=== PATIENT | male | born 1950 | race Caucasian/White ===

== ENCOUNTER 2017-02-11 03:15 | Outpatient (CLI) | payer OTHER, MEDICARE | END 2017-02-11 03:16 | disposition critical access hospital (66) | LOC: EMS 03:15 | PROVIDERS: ATTEND Surgery | DX: R42 Dizziness and giddiness (principal) | CPT/HCPCS: A0425; A0427 ==

== ENCOUNTER 2017-02-11 03:28 | Inpatient (IN) | payer OTHER, MEDICARE ==
[2017-02-11] MEDS ORDERED: diltiaZEM INJ 5 MG/ML VIAL IVP STA (03:37)
[2017-02-11] MEDS ORDERED: diltiaZEM INJ 5 MG/ML VIAL ONE ×2 (03:45→04:06)
[2017-02-11 03:48] LABS: BASOPHILS # (AUTO) 0.2 10^3/uL (0.0-0.1); BASOPHILS % (AUTO) 1.3 %; EOSINOPHILS # (AUTO) 0.2 10^3/uL (0.0-0.7); EOSINOPHILS % (AUTO) 2.1 %; HCT - HEMATOCRIT 46.4 % (42.0-52.0); HGB - HEMOGLOBIN 15.6 g/dL (14.0-18.0); LYMPHOCYTES # (AUTO) 1.4 10^3/uL (1.5-3.5); LYMPHOCYTES % (AUTO) 12.2 %; MEAN CORPUSCULAR HGB CONC 33.6 g/dL (32.0-36.0); MEAN CORPUSCULAR VOLUME 86.1 fL (80.0-94.0); MONOCYTES # (AUTO) 0.8 10^3/uL (0.0-1.0); MONOCYTES % (AUTO) 6.6 %; NEUTROPHILS # (AUTO) 9.2 10^3/uL (1.5-6.6); NEUTROPHILS % (AUTO) 77.8 %; NUCLEATED RED BLOOD CELLS AUTO 0.2 /100WBC; RED BLOOD COUNT 5.39 10^6/uL (4.70-6.10); RED CELL DISTRIBUTION WIDTH 15.8 % (12.0-15.0); UNCORRECTED WHITE BLOOD COUNT 11.8 x10^3/uL; WHITE BLOOD COUNT 11.8 x10^3/uL (4.8-10.8)
[2017-02-11 03:55] LABS: INR 0.9 (0.8-1.2); PT - PROTHROMBIN TIME 10.6 secs (9.9-12.6)
[2017-02-11 04:03] LABS: ALBUMIN/GLOBULIN RATIO 1.3 (1.0-2.2); BILIRUBIN,TOTAL 0.5 mg/dL (0.2-1.0); CALCIUM 8.8 mg/dL (8.5-10.3); CREATININE 1.1 mg/dL (0.6-1.2); MAGNESIUM 2.2 mg/dL (1.7-2.8); POTASSIUM 3.9 mmol/L (3.5-5.0); TOTAL PROTEIN 6.9 g/dL (6.7-8.2)
[2017-02-11] MEDS ORDERED: diltiaZEM INJ 125 MG in DEXTROSE 5% 100 ML IV STA (04:16)
[2017-02-11] MEDS ORDERED: SODIUM CHLORIDE 0.9% 1,000 ML IV ONE (04:18)
--- NOTE | 2017-02-11 04:38 | XRAY Preliminary Report ---
Exam: XR Chest 1 View IMPRESSION: Stable appearance of the chest without acute cardiopulmonary abnormality. [facility] SITE ID: [id number]
--- NOTE | 2017-02-11 04:41 | ED Physician Documentation ---
PD HPI SYNCOPE - Stated complaint Stated Complaint: DIZZY/SYNCOPE - Chief complaint Chief Complaint: Neuro - History obtained from History obtained from: Patient, Family, EMS - History of Present Illness Witnessed: Unwitnessed Timing - onset: How many hours ago (1) Duration: Seconds Preceding symptoms: Light headed Associated symptoms: No: Seizure, Incontinant of urine, Headache, Vision changes Contributing factors: Just stood up. No: Recent med change, Decreased PO intake , Noxious stimulae Injury occurred: Fell. No: Head injury, Neck injury Similar symptoms before: Has not had sx before Recently seen: Not recently seen - Additional information Additional information: Patient is a 66 year old male who is presenting to the emergency department for syncope. paitent states that he got up to go to the bathroom and when he was walking back to his room he got light headed and passed out. Patient things that it lasted only a few seconds and denies any injury. Patient was able to go back to bed. he laid down and felt ok, but when he sat up in bed he thought he was going to pass out again. Review of Systems Constitutional: denies: Fever, Chills, Myalgias Eyes: denies: Loss of vision, Photophobia Ears: denies: Ear pain, Drainage/discharge Nose: denies: Rhinorrhea / runny nose, Congestion, Epistaxis Throat: denies: Dental pain / toothache, Sore throat Cardiac: denies: Chest pain / pressure, Calf pain GI: denies: Abdominal Pain, Nausea, Vomiting : denies: Dysuria, Frequency Musculoskeletal: denies: Neck pain, Back pain, Extremity pain, Joint pain Neurologic: denies: Generalized weakness, Focal weakness, Numbness Immunocompromised: denies: Immunocompromised PD PAST MEDICAL HISTORY - Past Medical History Cardiovascular: Hypertension, High cholesterol Respiratory: COPD, Other Endocrine/Autoimmune: None GI: Other : None HEENT: None Psych: None Musculoskeletal: Osteoarthritis Derm: None - Past Surgical History Past Surgical History: Yes General: Colonoscopy, EGD, Other Ortho: Arthroscopic surgery HEENT: Tonsil/Adenoidectomy - Present Medications Home Medications: Ambulatory Orders Medication Instructions Recorded Confirmed Felodipine [Plendil] 5 mg PO DAILY 09/08/13 02/11/17 Budesonide/Formoterol Fumarate 2 puffs IH DAILY 10/09/14 02/11/17 [Symbicort 160-4.5 Mcg Inhaler] Losartan [Cozaar] 100 mg PO DAILY 10/09/14 02/11/17 Meloxicam 15 mg PO DAILY 10/09/14 02/11/17 - Allergies Allergies/Adverse Reactions: Allergies Allergy/AdvReac Type Severity Reaction Status Date / Time fortino Allergy Severe Syncope Verified 02/11/17 03:37 - Social History Does the pt smoke?: Yes Smoking Status: Current every day smoker Does the pt drink ETOH?: No Does the pt have substance abuse?: No - Immunizations Immunizations are current?: Yes PD ED PE NORMAL - Vitals Vital signs reviewed: Yes - General General: Alert and oriented X 3, No acute distress - HEENT HEENT: Atraumatic, PERRL, Pharynx benign - Neck Neck: Supple, no meningeal sign, No JVD - Respiratory Respiratory: No respiratory distress, Clear bilaterally - Abdomen Abdomen: Soft, Non tender, Non distended - Derm Derm: Normal color, Warm and dry, No rash - Extremities Extremities: No deformity, No tenderness to palpate, No edema - Neuro Neuro: Alert and oriented X 3, No motor deficit, No sensory deficit, Normal speech - Psych Psych: Normal mood, Normal affect PD ED PE EXPANDED - Cardiac Cardiac: Irregularly irregular, Radial strong equal. No: Chest wall TTP Results - Vitals Vitals: Vital Signs - 24 hr 02/11/17 02/11/17 02/11/17 03:29 03:30 04:16 Temperature 36.2 C L Heart Rate 120 H 132 H 129 H Respiratory 15 11 L 16 Rate Blood Pressure 148/92 H 147/94 H 142/107 H O2 Saturation 96 100 99 02/11/17 02/11/17 04:43 05:00 Temperature Heart Rate 110 H 99 Respiratory 15 16 Rate Blood Pressure 116/79 93/68 O2 Saturation 97 97 Oxygen O2 Source Room air - EKG (time done) 0331 Rate: Rate (enter#) (121) Rhythm: Atrial fibrillation [facility]: Normal Ischemia: Normal ST segments Compare to prior EKG: Changed from prior EKG - Labs Labs: Laboratory Tests 02/11/17 02/11/17 02/11/17 03:40 03:40 03:40 WBC 11.8 H RBC 5.39 Hgb 15.6 Hct 46.4 MCV 86.1 MCH 29.0 MCHC 33.6 RDW 15.8 H Plt Count 237 MPV 7.0 L Neut # 9.2 H Lymph # 1.4 L Coal # 0.8 Eos # 0.2 Baso # 0.2 H Absolute Nucleated RBC 0.03 Nucleated RBCs 0.2 PT 10.6 INR 0.9 APTT 28.0 Sodium 141 Potassium 3.9 Chloride 106 Carbon Dioxide 27 Anion Gap 8.0 BUN 19 Creatinine 1.1 Estimated GFR (MDRD) 67 L Glucose 128 H Calcium 8.8 Phosphorus 3.0 Magnesium 2.2 Total Bilirubin 0.5 AST 17 ALT 19 Alkaline Phosphatase 63 Troponin I B-Natriuretic Peptide Total Protein 6.9 Albumin 3.9 Globulin 3.0 Albumin/Globulin Ratio 1.3 Lipase 29 TSH 02/11/17 02/11/17 02/11/17 03:40 03:40 03:40 WBC RBC Hgb Hct MCV MCH MCHC RDW Plt Count MPV Neut # Lymph # Coal # Eos # Baso # Absolute Nucleated RBC Nucleated RBCs PT INR APTT Sodium Potassium Chloride Carbon Dioxide Anion Gap BUN Creatinine Estimated GFR (MDRD) Glucose Calcium Phosphorus Magnesium Total Bilirubin AST ALT Alkaline Phosphatase Troponin I < 0.04 B-Natriuretic Peptide 47 Total Protein Albumin Globulin Albumin/Globulin Ratio Lipase TSH 1.83 - Rads (name of study) chest x-ray Radiology: Final report received (stable appearance of chest ), EMP read contemporaneously (unchanged from previous) PD MEDICAL DECISION MAKING - ED course Complexity details: reviewed old records, reviewed results, re-evaluated patient , considered differential, d/w patient, d/w netsuite consultant ED course: Patient was seen and examined at bedside. iv access was gained and labs were drawn. ekg was performed and was showing A fib. Patient was treated with cardizem 20mg. labs were within normal limits and patient was placed on a cardizem drip. hospitalist was contacted and the case was discussed with her. patient was admitted for further evaluation and care. Departure - Departure Disposition: ED Place in Observation Clinical Impression: A-fib Condition: Stable
--- NOTE | 2017-02-11 04:41 | XRAY Report ---
EXAM: CHEST RADIOGRAPHY EXAM DATE: 02/11/2017 03:57 AM. CLINICAL HISTORY: Syncope, tachycardia. COMPARISON: 09/28/2013 TECHNIQUE: 1 view. FINDINGS: Lungs/Pleura: No focal opacities evident. No pleural effusion. No pneumothorax. Mediastinum: Suspect small right-sided epicardial fat pad. Cardiac silhouette is within normal limit s when accounting for lung volumes and technique. Other: None. IMPRESSION: Stable appearance of the chest without acute cardiopulmonary abnormality. [facility] Referring Provider Line: [phone] SITE ID: [id number]
[2017-02-11] MEDS ORDERED: HYDROcod/ACETAM 5/325 MG TABLET PO PRN (05:12)
[2017-02-11] MEDS ORDERED: ONDANSETRON 4 MG/2 ML VIAL IVP PRN (05:12)
[2017-02-11] MEDS ORDERED: SODIUM CHLORIDE FLUSH 0.9% 10 ML SYRINGE IVP PRN (05:12)
[2017-02-11] MEDS ORDERED: ONDANSETRON ODT 4 MG TABLET TL PRN (05:12)
[2017-02-11] MEDS ORDERED: ACETAMINOPHEN 325 MG TABLET PO PRN (05:12)
[2017-02-11] MEDS ORDERED: diltiaZEM INJ 125 MG in DEXTROSE 5% 100 ML IV SCH ×2 (05:16→10:00)
[2017-02-11] MEDS ORDERED: RIVAROXABAN 10 MG TABLET PO SCH ×2 (06:00→17:00)
[2017-02-11] MEDS: SODIUM CHLORIDE FLUSH 0.9% 10 ML SYRINGE IVP SCH ×3 (06:31→22:12)
[2017-02-11 07:29] LABS: BILIRUBIN,URINE NEGATIVE (NEGATIVE)
[2017-02-11 07:41] LABS: UR CULTURE IF IND NOT INDICATED; WBC,URINE 0-3 /HPF (0-3)
--- NOTE | 2017-02-11 07:56 | HISTORY & PHYSICAL EXAMINATION ---
DATE OF ADMISSION: 02/11/2017 PRIMARY CARE PROVIDER: Pierre Segura M.D. ADMITTING PROVIDER: Loulou Fajardo MD CHIEF COMPLAINT: Syncope. HISTORY OF PRESENT ILLNESS: He is a 66-year-old man who has passed out several times in his life before. Twenty years ago he passed out in relation to chicken and ross. He did an experiment by himself and realized that every time he ate chicken and ross in combination he would get a little lightheaded, so he stopped doing that. He then passed out in 2013 in association with melanotic stool. He was found to have a Malorie-Mar tear on an EGD. The tear and gastritis at that time was attributed to Advil use for osteoarthritis of the knee. He denies any valvular heart disease. He has never had heart problems before. He did have a right knee replacement surgery in the last month. He last walked a mile and a half on (today is the early childhood coordinator hours of Monday) without any chest pain, shortness of breath, or palpitations. He did not have any thyroid disease. He denies any history of angina, or previous history of palpitations. When I ask him if he feels that he has an irregular heartbeat right now, he says no. This morning he got up to go to the bathroom. He gets up to pee at least twice a night. He passed out after feeling a little lightheaded and going back to bed. He laid in bed for a while. Tested himself by getting up and still felt lightheaded, and that is when they called EMS and brought him to the emergency room. In the emergency room, he has been seen by Dr. Sierra and he is in atrial fibrillation, unknown duration. Possibly new onset, possibly longer. He is completely asymptomatic. He had tachycardia into the 120s, afebrile, normotensive, and oxygenating well, in no acute distress. Dr. Sierra has given him a diltiazem IV push and started him on a diltiazem drip. Rate control is now in the high 90s, low 100s. His initial laboratory studies showed him to have mildly elevated white cell count. Troponin is less than 0.04. TSH is 1.83. Again, he is oxygenating normally on room air. He is now placed in observation for evaluation of this new onset atrial fibrillation, unknown duration. PAST MEDICAL HISTORY 1. Hypertension. 2. Hyperlipidemia. 3. Chronic bronchitis. 4. Osteoarthritis of the knees with a knee replacement in 2012 and then a new knee replacement on the right in the last month. 5. Upper gastrointestinal bleed, requiring blood transfusion, EGD showing Malorie-Mar tear in 2013. Pathology on 09/08/2013 EGD showed no H pylori, no malignancy, no esophageal varices. 6. Right inguinal hernia repair in the remote past. 7. Umbilical hernia currently present, not needing repair. ALLERGIES: ROSS. MEDICATIONS 1. Losartan 100 mg daily. 2. Meloxicam 15 mg daily. 3. Plendil 5 mg daily. 4. Symbicort for his chronic bronchitis 160/4.5 mcg inhaler 2 puffs daily. SOCIAL HISTORY: He started smoking at the age of 11 and smoked for 15 years, and smoked up to 1 pack per day. Stopped smoking cigarettes and chewed tobacco for the next 15 years. Was actually tobacco free for about 3-4 years when a friend came over and offered him a cigar, and he now smokes 3-4 cigars a day. He used to be an alcoholic. Drank a case of beer with a fifth of hard alcohol daily. He stopped drinking when an encounter with his daughter resulted in harsh words on his part. She remonstrated him and he quit drinking that day about 15 years ago. Never had problems with DTs, withdrawal, or cirrhosis as far as he knows. He denies any recreational substance abuse in the form of cannabis, cocaine, heroin, LSD, speed. 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 He is to his second . He is not in contact with any of his children from his first . [place] also seems to intimation that there is a bit of family dysfunction and that some children have been in fpc. With his second of 42 years, they have 3 daughters. 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 FAMILY HISTORY: He is not in contact with his father. The last he heard of him he was in his 50s and healthy, but he has no idea. Mom at age 83 of complications of diabetes, morbid obesity. He had one half brother who of heart disease and he has 2 half sisters that have obesity and diabetes. His 3 daughters are healthy. REVIEW OF SYSTEMS CONSTITUTIONAL: He does not describe any constitutional symptoms of weight loss , fevers, chills, sweats. ENT: Has poor dentition with most of them gone. Has had hearing aids. Denies glaucoma or cataracts. He has no problems with swallowing. He has no history of aphasia. PULMONARY: Chronic bronchitis. Coughs almost every day. That is why he takes the Symbicort. Denies hemoptysis or history of pneumonia. Denies any severe dyspnea on exertion. His exertions are not limited by breathing. CARDIAC: Denies orthopnea, edema, angina, irregular heartbeat, valvular heart disease. GASTROINTESTINAL: Has internal and external hemorrhoids. Occasionally, the external hemorrhoids are quite painful. He also has occasional bright red blood per rectum. Last colonoscopy was 10 years ago and normal. He denies any abdominal pain, change in bowel habits, diarrhea. He has the asymptomatic umbilical hernia. GENITOURINARY: Nocturia is twice with occasional decreased stream, not consistent. He has been taking saw palmetto all of his life. He denies urgency, dysuria, hematuria, flank pain. 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 Knees have been the main problem and he has already had one knee replacement on the left, and now with a right knee replacement. He used to take quite a bit of nonsteroidals, but switched from BARBER-1 drugs to BARBER-2 drugs after the gastrointestinal bleed. SKIN: No new lesions or rashes. PSYCHIATRIC: Denies depression, anxiety. He says that he did try and kill himself when he was 10 years old and his first girlfriend left him. He took a handful of aspirin. He thinks he was about 10. He laughs when he says this. But he usually has no problems with psychiatric disease. DESK ATTENDANT: Syncope 20 years ago, syncope in 2014 with a GI bleed. He otherwise does not have dizziness. Does have tinnitus. No history of stroke or focal deficits. No history of memory loss. No history of seizures. PHYSICAL EXAMINATION GENERAL: On examination, he is seen in the emergency room, vimal #3, and he is alert, oriented, in no acute distress, by himself. has been here all evening and left to go home and get some rest. He is an alert, cooperative gentleman who looks his stated age. He is on a diltiazem drip. VITAL SIGNS: Temperature is 36.2, pulse is now 99, blood pressure which was in the 140s systolic is now 93/68, respirations are 16 and unlabored. He is 97% on room air. HEAD AND NECK: He has very poor dentition. In spite of his complaints of deafness, he is able to hear everything I said without me having to raise my voice. He has a very slight left facial droop, manifested by loss of wrinkles on his left forehead and subtle loss of nasolabial fold on the left. Tongue is also slightly shifted, but he has no fasciculations, speech is normal. Neck is supple, without goiter or bruits. He does have shotty adenopathy. LUNGS: Completely clear to auscultation and percussion. There is no prolonged exhalation in spite of his history of smoking. CHEST: AP diameter is slightly enlarged. CARDIOVASCULAR: PMI is normally placed with an irregular rate and rhythm. In listening for valvular heart disease, no murmurs audible, PMI normally placed. He does not have a right ventricular lift. ABDOMEN: Obese, soft, and only vaguely tender in the right upper quadrant with deep palpation. I do feel the liver edge towards the xiphoid process, but nothing under the rib cage. Spleen is not palpable. He has an easily reducible small umbilical hernia. Normal bowel sounds. No other masses. EXTREMITIES: Show warmth over the knee and warmth over the soft tissue area in the medial calf on the right side. Completely Homans' negative. The calf is soft , nontender. He says that his yusra were ripped when he was doing physical therapy and it opened up the wound. It allowed some dehiscence and he has had secondary intention healing with a thin eschar that is white over the knee incision. The left knee is completely unremarkable other than the scar. He has no clubbing, cyanosis, or edema. NEUROLOGICAL: He is alert and oriented to person, place, and time. Deafness is not apparent to me as he speaks to me normally and he can hear me. Again, the slight left facial droop on exam, but no concurrent left body findings. He has no pronator drift. Hand grasp strength is equal and symmetrical. He is able to lift both legs off the bed. Plantar dorsiflexion strength testing is normal. LABORATORIES: On CMP, normal sodium, potassium, BUN, creatinine, with a GFR of 67. Random glucose is 128. Troponin less than 0.04. BNP is 47. TSH is 1.83. Lipase is 29. CBC shows a mild elevation of white cell count at 11.8 thousand. His last CBCs in the EMR from 2013 to 2014 were all 6.9 to 7.1. Hemoglobin is normal at 15.6. MCV is normal. Platelets 237. INR is 0.9. IMAGING: Chest x-ray shows no infiltrates, and there is no report of emphysema changes. It is a stable chest appearance. He has a suspected right-sided epicardial fat pad. EKG has atrial fibrillation with a rate of 121. Upright access that is normal. No deviation. Nonspecific ST changes in the lateral leads at V5, V6. Normal R- wave progression, and other than the atrial fibrillation is not really an acute change EKG, with no previous EKG for comparison. ASSESSMENT/PLAN 1. New onset atrial fibrillation, unknown duration. Patient is completely asymptomatic at this time other than the lightheadedness and syncope he manifested at home. Even right here in the emergency room, he is unaware he is in atrial fibrillation, with a rate that sometimes goes up to 130. So it is difficult to say when this onset would have been for this patient. CHADS score is 2, which shows a moderate risk. As such, he will be anticoagulated with Xarelto. For the further workup of the cause of the atrial fibrillation, his initial set of troponins are negative, will do another set in 6 hours. Will check echocardiogram for valvular heart disease, but I am not hearing anything on exam, and the other differential to consider is pulmonary embolus. The patient has just had a knee replacement. So he will get an echocardiogram and a CT pulmonary angiogram. Placed in observation. Anticipate discharge at less than 1 midnight. TSH is normal. I do not suspect alcohol abuse in that he has not had a drink quite some time, and chest x-ray is normal for any infiltrative process that would irritate the cardium to cause atrial fibrillation. 2. Elevated white cell count in a patient who has had a knee replacement. The knee is warm. Slight effusions seen on exam. Flexion is impaired, but all of this is normal postoperative findings. Patient does not have a fever. He is successfully undergoing PT. Walked a mile and a half 2 days ago. Will just follow up with his orthopedic surgeon, who is Dr. Vigil at [facility]. At this time, I do not suspect infection and will just closely follow. 3. History of hypertension. With a diltiazem drip he is mildly hypotensive. Will adjust medications as necessary. 4. Hyperlipidemia history. He stopped taking his statin about 3-4 years ago. No reason, he just "stopped doing it." Would recommend that he get his lipid panel checked again in the outpatient setting and decide if his cardiac risk factors are high enough for him to resume statins. 5. Randomized elevated glucose in a patient does not have a history of diabetes. Check A1c. 6. Umbilical hernia, easily reducible. Not symptomatic. No further evaluation needed at this time unless it becomes symptomatic. 7. Left facial droop. He does not have a history of Mercado's palsy or any neurological event. At this time, no further workup and just noted. I am hoping that Dr. Segura will read this History and Physical. As the patient's left-sided facial droop worsens, he may need imaging in the outpatient arena, but at this time observation only. 8. Poor dentition. Strongly recommend dental followup in the outpatient setting. 9. Tobacco abuse. Strongly counseled to stop smoking cigars. He is already at increased risk head and neck cancer, much less lung cancer, and as he gets older he has already increased his risk for arteriosclerotic disease. No nicotine patch needed at this time. 10. Osteoarthritis, with recent knee replacement. Pain and stiffness as expected. Unfortunately, he is going to have to go off meloxicam or any nonsteroidal therapy and will need to be switched to Tylenol or very low dose opioid. 11. DO NOT RESUSCITATE, DO NOT INTUBATE status. He says that he is several friends and acquaintances be on life support, receive treatment beyond when they should have. He has not shared his philosophy yet with his and I strongly encouraged him to do so because it would be a severe shock for her to come in in emergency find her unresuscitated per his wishes, but she did not know. 12. Deep venous thrombosis prophylaxis is moot, in that the patient will be on Xarelto for his new onset atrial fibrillation. JOB #: [id number] EXT JOB #:[id number] MTDD
[2017-02-11] MEDS: diltiaZEM 30 MG TABLET PO SCH ×3 (08:08→19:06)
[2017-02-11] MEDS: FELODIPINE ER 2.5 MG TABLET PO SCH (08:42)
[2017-02-11] MEDS: POLYETHYLENE GLYCOL 3350 17 GM PACKET PO SCH (08:43)
[2017-02-11] MEDS: LOSARTAN 50 MG TABLET PO SCH (08:43)
[2017-02-11] MEDS ORDERED: IOPAMIDOL-300 100 ML VIAL IVP ONE (08:59)
[2017-02-11] MEDS ORDERED: LOSARTAN 50 MG TABLET PO SCH (09:00)
[2017-02-11] MEDS ORDERED: FORMOTEROL FUMARATE IH SCH (09:00)
[2017-02-11] MEDS ORDERED: MELOXICAM 15 MG PO SCH (09:00)
[2017-02-11] MEDS ORDERED: [UNRECOGNIZED DRUG - OTHER] IH SCH (09:00)
[2017-02-11] MEDS ORDERED: BUDESONIDE IH SCH (09:00)
[2017-02-11 09:27] LABS: BASOPHILS # (AUTO) 0.1 10^3/uL (0.0-0.1); BASOPHILS % (AUTO) 0.5 %; EOSINOPHILS # (AUTO) 0.1 10^3/uL (0.0-0.7); EOSINOPHILS % (AUTO) 1.1 %; HCT - HEMATOCRIT 43.9 % (42.0-52.0); HGB - HEMOGLOBIN 14.6 g/dL (14.0-18.0); LYMPHOCYTES # (AUTO) 1.5 10^3/uL (1.5-3.5); LYMPHOCYTES % (AUTO) 13.2 %; MEAN CORPUSCULAR HEMOGLOBIN 28.5 pg (27.0-31.0); MEAN CORPUSCULAR HGB CONC 33.4 g/dL (32.0-36.0); MEAN CORPUSCULAR VOLUME 85.5 fL (80.0-94.0); MEAN PLATELET VOLUME 7.4 fL (7.4-11.4); MONOCYTES # (AUTO) 0.7 10^3/uL (0.0-1.0); MONOCYTES % (AUTO) 5.8 %; NEUTROPHILS # (AUTO) 9.3 10^3/uL (1.5-6.6); NEUTROPHILS % (AUTO) 79.4 %; RED BLOOD COUNT 5.13 10^6/uL (4.70-6.10); RED CELL DISTRIBUTION WIDTH 15.7 % (12.0-15.0); UNCORRECTED WHITE BLOOD COUNT 11.7 x10^3/uL; WHITE BLOOD COUNT 11.7 x10^3/uL (4.8-10.8)
--- NOTE | 2017-02-11 09:38 | CT Preliminary Report ---
Exam: CT Chest Angio (PE) IMPRESSION: 1. No evidence of acute PE. Minimal ascending aortic prominence measuring up to 4.3 cm. 2. Mild atelectatic changes at the lung bases and the lingula without gross consolidation. 3. Otherwise, unremarkable exam. [facility] SITE ID: [id number]
--- NOTE | 2017-02-11 09:41 | CT Report ---
EXAM: CT ANGIOGRAM CHEST EXAM DATE: 02/11/2017 08:48 AM. CLINICAL HISTORY: New afib with hx of knee replacement. COMPARISON: None. TECHNIQUE: Routine helical imaging was performed through the chest in the pulmonary arterial phase. I V Contrast: 80 cc of Isovue 300. Reconstructions: Coronal 3-D MIP reconstructions.Sagittal and baez l. In accordance with CT protocol optimization, one or more of the following dose reduction techniques w ere utilized for this exam: automated exposure control, adjustment of mA and/or KV based on patient s ize, or use of iterative reconstructive technique. FINDINGS: Pulmonary Arteries: Diagnostic quality: Adequate through the segmental arteries. No evidence for acute or chronic pulmona ry emboli. RV/LV is within normal limits. There is no interventricular septal bowing. There is no reflux of cont rast material in the IVC. Lungs/Pleura: Mild atelectatic changes seen at the lung bases in addition to the lingula. No gross co nsolidation seen. Mediastinum: Mildly prominent lymph nodes seen about the precarinal region measuring up to 1.4 cm. Ad ditional subcentimeter lymph nodes seen in mediastinum otherwise. No evidence of hilar adenopathy see n. Thoracic Aorta: Minimal ascending aortic prominence measuring up to 4.3 cm. Upper Abdomen: Unremarkable. Other: None. IMPRESSION: 1. No evidence of acute PE. Minimal ascending aortic prominence measuring up to 4.3 cm. 2. Mild atelectatic changes at the lung bases and the lingula without gross consolidation. 3. Otherwise, unremarkable exam. [facility] Referring Provider Line: [phone] SITE ID: [id number]
[2017-02-11] MEDS ORDERED: DEXTROSE 5% 100 ML IV ONE (09:55)
[2017-02-11 11:20] LABS: HEMOGLOBIN A1C 0.66 g/dL
--- NOTE | 2017-02-11 17:10 | PROVIDER PROGRESS NOTE ---
Lathe Spotter Note - Lathe Spotter Note Lathe Spotter Note: Patient seen and examined. Went for CTA of the lungs this morning which was negative for pulmonary embolism. The patient is resting comfortably and asymptomatic. He is off of the diltiazem drip this afternoon. His heart rate continues to jump up into the low 100s. He is on PO dilt still in A fib we will start him on metoprolol tonight and see if he converts back to sinus rhythm. Patients echo looked very normal. The patient was started on xarelto today.
[2017-02-11] MEDS ORDERED: METOPROLOL TARTRATE 25 MG TABLET PO SCH (21:00)
[2017-02-12] MEDS: diltiaZEM 30 MG TABLET PO SCH (01:03)
[2017-02-12] MEDS ORDERED: METOPROLOL 5 MG/5 ML VIAL IVP ONE (04:15)
[2017-02-12] MEDS ORDERED: METOPROLOL 5 MG/5 ML VIAL IVP SCH (04:15)
[2017-02-12] MEDS ORDERED: METOPROLOL TARTRATE 25 MG TABLET PO SCH (06:38)
[2017-02-12] MEDS ORDERED: RIVAROXABAN 10 MG TABLET PO SCH (08:00)
[2017-02-12] MEDS: SODIUM CHLORIDE FLUSH 0.9% 10 ML SYRINGE IVP SCH (08:41)
[2017-02-12] MEDS ORDERED: diltiaZEM CD 180 MG CAPSULE PO SCH (09:00)
[2017-02-12] MEDS: POLYETHYLENE GLYCOL 3350 17 GM PACKET PO SCH (09:03)
[2017-02-12] MEDS: FELODIPINE ER 2.5 MG TABLET PO SCH (09:57)
[2017-02-12] MEDS: LOSARTAN 50 MG TABLET PO SCH (09:57)
[2017-02-12 12:56] VITALS: BP 102/67
--- NOTE | 2017-02-12 13:56 | Discharge Plan ---
Discharge Plan Disposition: Home, Self Care Condition: Fair Prescriptions: diltiaZEM CD [Cardizem Cd] 180 mg PO DAILY #30 capsule Metoprolol Tartrate [Lopressor] 50 mg PO BID #60 tablet Rivaroxaban [Xarelto] 20 mg PO QDBREAKFAST #30 tablet Diet: Low Sodium Activity Restrictions: Activity as Tolerated Shower Restrictions: No Driving Restrictions: No Weight Bearing: Full Weight Instruction Topics: AFL/Afib, Stroke Prevent Live W Atrial Fib, Atrial Fibrillation Additional Instructions or Follow Up instructions: You presented in atrial fibrillation with a rapid ventricular rate. You were started on medications to help slow rate and at discharge her rate was between 80 and 100 which is adequate. I have given you a prescription for diltiazem and metoprolol that he will take daily. You've also been given a prescription for Xarelto which is a blood thinner and will reduce your risk of stroke given that you do have atrial fibrillation. Your echocardiogram showed that your heart is in good shape. Please followup with your primary care physician as soon as possible. You may need further adjustments on your weight controlling medications. No Smoking: If you smoke, Please STOP! Call for help. Follow-up with: Roni Segura MD [Provider Admit Priv/Credential] -
--- NOTE | 2017-02-12 14:10 | DISCHARGE SUMMARY ---
Discharge Summary Admit Date: 02/12/17 Discharge Date: 02/12/17 Discharging Provider: Hector Zhu MD Primary Care Provider: Pierre Segura MD Code Status: Do Not Attempt Resuscitation Condition at Discharge: Fair Discharge Disposition: 01 Home, Self Care - DIAGNOSES Admission Diagnoses: 1. New onset atrial fibrillation 2. Elevated white blood cell count 3. History of hypertension 4. Hyperlipidemia 5. Elevated glucose 6. Umbilical hernia 7. Left facial droop 8. Nam patient 9. Tobacco abuse 10. Osteoarthritis 11. DVT prophylaxis - HPI History of Present Illness: Patient is a 66-year-old gentleman who has passed out several times in his life before. 20 years ago he passed out in relation to chicken and Constanza. He did an experiment by himself and relies that every time he ate chicken constanza a combination he would get a little lightheaded, so he stopped doing that. He then passed out and 2014 in association with melanotic stool. He was found to have Malorie-Mar tear on an EGD. The tear and gastritis at that time was attributed to have bilious for osteoarthritis of the knee. He denies any valvular heart disease. He is never had heart problems. He did have a right knee replacement surgery in the last month. He last walked a mile and a half on without any chest pain, shortness of breath, or palpitations. He did not have any thyroid disease. He denies any history of angina, or previous history of palpitations. On the morning of presentation the patient got up to go to the bathroom he gets up to P. at least twice a night. He states he passed out after feeling lightheaded and then went back to bed. He laid in the bed for a while. Tested himself by getting up and still felt lightheaded and therefore he called EMS and was brought into the emergency department. On presentation to emergency department the patient was found to be in atrial fibrillation for an unknown duration. This is possibly new onset but could have been longer. He was completely asymptomatic. He had heart rate in the 120s, was afebrile and normotensive with good oxygenation and not in any acute distress. The patient was given IV push of diltiazem and then started on a diltiazem drip. Patient continued to have rate in the 100s to 120s. He underwent lab work which revealed a normal TSH normal troponin and his EKG showed that he was in atrial fibrillation. - HOSPITAL COURSE Hospital Course: The patient is a 66-year-old gentleman with a past medical history of hypertension, hyperlipidemia, chronic bronchitis, Osteoarthritis status post knee replacement x2, history of GI bleed requiring transfusion and right inguinal hernia repair who presents to the emergency department with a syncopal episode and lightheadedness. The patient was found to be in atrial fibrillation with rapid ventricular rate in the 120s he was given IV diltiazem and placed on a diltiazem drip. The patient was admitted to the ICU on a diltiazem drip. Patient's workup including TSH, troponin, EKG, chest x-ray, CT angiogram of the lungs and echocardiogram were all unremarkable. The patient remained in atrial fibrillation throughout the hospitalization however he was titrated off of the diltiazem drip. He was placed on oral metoprolol which was titrated up to 50 mg twice a day and on diltiazem 180 mg daily. We stopped his home blood pressure medication including felodipine Cozaar and hydrochlorothiazide as we did not want him to become hypotensive. The patient was monitored on telemetry and heart rate remained between 80 and 100 on the above medications. The patient was started on Xarelto for anticoagulation for his atrial fibrillation. His chadsvasc score was 3. The patient was given prescriptions for the above medications and was told to followup with his PCP. The patient may need further adjustment of his rate control agents. The patient remained in atrial fibrillation at the time of discharge. Patient's blood pressure was well- controlled. The patient may need referral for cardiology. Patient was in stable condition at the time of discharge. - ALLERGIES Allergies/Adverse Reactions: Allergies Allergy/AdvReac Type Severity Reaction Status Date / Time constanza Allergy Severe Syncope Verified 02/11/17 03:37 - MEDICATIONS Home Medications: Ambulatory Orders Medication Instructions Recorded Confirmed Meloxicam 15 mg PO DAILY 10/09/14 02/11/17 Albuterol Sulf [Ventolin Hfa 2 puffs INH Q4H PRN 02/11/17 02/11/17 Inhaler] Metoprolol Tartrate [Lopressor] 50 mg PO BID #60 tablet 02/12/17 Rivaroxaban [Xarelto] 20 mg PO QDBREAKFAST #30 tablet 02/12/17 diltiaZEM CD [Cardizem Cd] 180 mg PO DAILY #30 capsule 02/12/17 - PHYSICAL EXAM AT DISCHARGE General Appearance: positive: No acute distress, Alert Eyes Bilateral: positive: Normal inspection, PERRL, EOMI, No lid inflammation, Conjunctivae nml, No scleral icterus ENT: positive: ENT inspection nml, Pharynx nml, No signs of dehydration. negative: Purulent nasal drainage, Pharyngeal erythema, Oral lesions Neck: positive: Nml inspection, Thyroid nml, No JVD, Trachea midline. negative : Thyromegaly, Lymphadenopathy (R), Lymphadenopathy (L), Carotid bruit, Tracheal deviation Respiratory: positive: Chest non-tender, No respiratory distress, Breath sounds nml. negative: Wheezes, Rales, Rhonchi Cardiovascular: positive: No murmur, No gallop, Irregularly irregular Peripheral Pulses: positive: 2+ Abdomen: positive: Non-tender, No organomegaly, Nml bowel sounds, No distention. negative: Guarding, Rebound Back: positive: Nml inspection. negative: CVA tenderness (R), CVA tenderness (L ) Skin: positive: Color nml, No rash, Warm Extremities: positive: Non-tender, Full ROM, Nml appearance, No pedal edema Neurologic/Psychiatric: positive: Oriented x3, CN's nml (2-12), Motor nml, Sensation nml, Mood/affect nml - LABS Result Diagrams: 02/11/17 08:57 02/11/17 03:40 Other Lab Results: Laboratory Results WBC 11.7 x10^3/uL (4.8-10.8) H 02/11/17 08:57 RBC 5.13 10^6/uL (4.70-6.10) 02/11/17 08:57 Hgb 14.6 g/dL (14.0-18.0) 02/11/17 08:57 Hct 43.9 % (42.0-52.0) 02/11/17 08:57 MCV 85.5 fL (80.0-94.0) 02/11/17 08:57 MCH 28.5 pg (27.0-31.0) 02/11/17 08:57 MCHC 33.4 g/dL (32.0-36.0) 02/11/17 08:57 RDW 15.7 % (12.0-15.0) H 02/11/17 08:57 Plt Count 228 10^3/uL (130-450) 02/11/17 08:57 MPV 7.4 fL (7.4-11.4) 02/11/17 08:57 Neut # 9.3 10^3/uL (1.5-6.6) H 02/11/17 08:57 Lymph # 1.5 10^3/uL (1.5-3.5) 02/11/17 08:57 [place] # 0.7 10^3/uL (0.0-1.0) 02/11/17 08:57 Eos # 0.1 10^3/uL (0.0-0.7) 02/11/17 08:57 Baso # 0.1 10^3/uL (0.0-0.1) 02/11/17 08:57 Absolute Nucleated RBC 0.00 x10^3/uL 02/11/17 08:57 Nucleated RBCs 0.0 /100WBC 02/11/17 08:57 PT 10.6 secs (9.9-12.6) 02/11/17 03:40 INR 0.9 (0.8-1.2) 02/11/17 03:40 APTT 28.0 secs (24.9-33.3) 02/11/17 03:40 Sodium 141 mmol/L (135-145) 02/11/17 03:40 Potassium 3.9 mmol/L (3.5-5.0) 02/11/17 03:40 Chloride 106 mmol/L (101-111) 02/11/17 03:40 Carbon Dioxide 27 mmol/L (21-32) 02/11/17 03:40 Anion Gap 8.0 (6-13) 02/11/17 03:40 BUN 19 mg/dL (6-20) 02/11/17 03:40 Creatinine 1.1 mg/dL (0.6-1.2) 02/11/17 03:40 Estimated GFR (MDRD) 67 (>89) L 02/11/17 03:40 Glucose 128 mg/dL (70-100) H 02/11/17 03:40 Glycated Hemoglobin 5.8 % (4.6-6.2) 02/11/17 08:57 Estim Average Glucose 120 (70-100) H 02/11/17 08:57 Calcium 8.8 mg/dL (8.5-10.3) 02/11/17 03:40 Phosphorus 3.0 mg/dL (2.5-4.6) 02/11/17 03:40 Magnesium 2.2 mg/dL (1.7-2.8) 02/11/17 03:40 Total Bilirubin 0.5 mg/dL (0.2-1.0) 02/11/17 03:40 AST 17 IU/L (10-42) 02/11/17 03:40 ALT 19 IU/L (10-60) 02/11/17 03:40 Alkaline Phosphatase 63 IU/L (42-121) 02/11/17 03:40 Troponin I < 0.04 ng/mL (<0.49) 02/11/17 08:57 B-Natriuretic Peptide 47 pg/mL (5-100) 02/11/17 03:40 Total Protein 6.9 g/dL (6.7-8.2) 02/11/17 03:40 Albumin 3.9 g/dL (3.2-5.5) 02/11/17 03:40 Globulin 3.0 g/dL (2.1-4.2) 02/11/17 03:40 Albumin/Globulin Ratio 1.3 (1.0-2.2) 02/11/17 03:40 Lipase 29 U/L (22-51) 02/11/17 03:40 TSH 1.83 uIU/mL (0.34-5.60) 02/11/17 03:40 Urine Color YELLOW 02/11/17 07:05 Urine Clarity CLEAR (CLEAR) 02/11/17 07:05 Urine pH 7.0 PH (5.0-7.5) 02/11/17 07:05 Ur Specific [place] 1.010 (1.002-1.030) 02/11/17 07:05 Urine Protein NEGATIVE mg/dL (NEGATIVE) 02/11/17 07:05 Urine Glucose (UA) NEGATIVE mg/dL (NEGATIVE) 02/11/17 07:05 Urine Ketones NEGATIVE mg/dL (NEGATIVE) 02/11/17 07:05 Urine Occult Blood NEGATIVE (NEGATIVE) 02/11/17 07:05 Urine Nitrite NEGATIVE (NEGATIVE) 02/11/17 07:05 Urine Bilirubin NEGATIVE (NEGATIVE) 02/11/17 07:05 Urine Urobilinogen 0.2 (NORMAL) E.U./dL (NORMAL) 02/11/17 07:05 Ur Leukocyte Esterase NEGATIVE (NEGATIVE) 02/11/17 07:05 Urine RBC None Seen /HPF (0-5) 02/11/17 07:05 Urine WBC 0-3 /HPF (0-3) 02/11/17 07:05 Ur Squamous Epith Cells NONE SEEN (<= Few) 02/11/17 07:05 Urine Bacteria None Seen /HPF (None Seen) 02/11/17 07:05 Urine Culture Comments NOT INDICATED 02/11/17 07:05 - DIAGNOSTIC IMAGING Diagnostic Imaging Results: Final report reviewed Diagnostic Imaging Results Comments: Chest x-ray Impression: Stable appearance of the chest without acute cardiopulmonary abnormality CT angiogram chest Impression: 1 no evidence of acute PE. Minimal ascending aortic prominence measuring up to 4.3 cm. 2. Mild atelectatic changes at the lung bases and the lingula without gross consolidation. 3. Otherwise, unremarkable exam. Echocardiogram: Left ventricle size is normal. Mild concentric left ventricular hypertrophy. Left ventricular systolic function is hyperdynamic with ejection fraction of greater than 75%. Indeterminate left ventricular filling pattern do to atrial fibrillation. The right ventricle is normal in size and function. The left atrial volume index is normal. Mild right atrial enlargement. The aortic valve is trileaflet. There is mild aortic valve sclerosis. There is no evidence of aortic stenosis. There is no evidence of aortic regurgitation. The mitral valve is normal no mitral stenosis noted. There is trace mitral regurgitation. The tricuspid valve appears structurally normal. No tricuspid stenosis noted. Trace tricuspid regurgitation present. Normal right ventricular pressure less than 35 mm mercury. The right ventricular systolic pressure at rest is 30 mm mercury. The pulmonic Doppler is normal. No significant pulmonic regurgitation noted. There is no pulmonic stenosis noted. There is no pericardial effusion noted. There is an adipose layer noted in the pericardium. The inter atrial septum appears normal. The interatrial septum is intact on color flow imaging. Aortic root size appears normal. The ascending aorta is dilated measuring up to 3.5 cm. The pulmonary artery is normal. Inferior vena cava is normal with greater than 50% inspiratory collapse which is suggestive of a right atrial pressure of 3 mm mercury. No thrombus or mass identified. There is no pleural effusion noted. - FOLLOW UP Follow Up: Patient presented with new-onset atrial fibrillation after having syncopal episode at home. Patient was placed on diltiazem drip weaned off and placed on oral metoprolol and diltiazem. With which the patient's heart rate was controlled. Patient was also prescribed Xarelto. Patient remained in atrial fib and will followup with his primary care physician within the next week. Patients Echo and CT angio of the lungs were normal. - TIME SPENT Time Spent in Discharge (Minutes): 45
[2017-03-03] MEDS ORDERED: ONDANSETRON 4 MG/2 ML VIAL ONE (16:11)
[2017-03-03] MEDS ORDERED: HYDROmorphone 1 MG/ML CARPUJECT ONE (16:11)
== END 2017-02-12 14:30 | disposition home or self-care (01) | DRG 310 ==
LOC: EDUNIT# → ED 03:28 → ICU 05:12 → OBSVTOIN 02-12 09:27 → MS3 02-12 11:12
PROVIDERS: ADMIT Specialist; ATTEND Internal Medicine
DX: I48.91 Unspecified atrial fibrillation (principal); D72.829 Elevated white blood cell count, unspecified; I10 Essential (primary) hypertension; I11.9 Hypertensive heart disease without heart failure; E78.5 Hyperlipidemia, unspecified; F17.290 Nicotine dependence, other tobacco product, uncomplicated; Z87.898 Personal history of other specified conditions; Z79.1 Long term (current) use of non-steroidal anti-inflammatories (NSAID); Z91.5 Personal history of self-harm; H93.19 Tinnitus, unspecified ear; Z91.81 History of falling; E66.9 Obesity, unspecified; Z68.32 Body mass index [BMI] 32.0-32.9, adult; I95.2 Hypotension due to drugs; T46.1X5A Adverse effect of calcium-channel blockers, initial encounter; Y92.239 Unspecified place in hospital as the place of occurrence of the external cause; R73.9 Hyperglycemia, unspecified; K42.9 Umbilical hernia without obstruction or gangrene; R29.810 Facial weakness; J42 Unspecified chronic bronchitis; Z66 Do not resuscitate; Z96.653 Presence of artificial knee joint, bilateral; Z87.19 Personal history of other diseases of the digestive system; Z72.0 Tobacco use
CPT/HCPCS: 36415; 71010; 71275; 80053; 81001; 83036; 83690; 83735; 83880; 84100; 84443; 84484; 85025; 85379; 85610; 85730; 87086; 87150; 93005; 93306; 96361; 96365; 96366; 96374; 96375; 96376; 99284

== ENCOUNTER 2017-06-02 15:33 | Outpatient (CLI) | payer OTHER, MEDICARE ==
--- NOTE | 2017-06-02 18:17 | Ultrasound Report ---
EXAM: Bilateral Lower Extremity Arterial Doppler Ultrasound EXAM DATE: 06/02/2017 03:54 PM. CLINICAL HISTORY: PVD WITH CLAUDICATION. COMPARISON: None. TECHNIQUE: Real-time sonographic vascular imaging was performed by the textile designer, utilizing color-f low, Doppler flow, and spectral analysis. Multiple escrow representative static images were saved for review . FINDINGS: The patient presented ambulatory without dusky extremities. Velocities are in centimeters per second Right side The common femoral artery appears patent with PSV 129 Profundus femoral artery PSV measures up to 243 Superficial femoral artery has a high-grade stenosis. 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 [facility] Referring Provider Line: [phone] SITE ID: [id number]
== END 2017-06-02 15:34 | disposition home or self-care (01) ==
LOC: DI 15:33
PROVIDERS: ATTEND Family Medicine
DX: I70.201 Unspecified atherosclerosis of native arteries of extremities, right leg (principal)
CPT/HCPCS: 93925

== ENCOUNTER 2018-01-01 13:03 | Emergency (ER) | payer OTHER, MEDICARE ==
--- NOTE | 2018-01-01 13:52 | ED Physician Documentation ---
History of Present Illness - Stated complaint Stated Complaint: RAPID HR/BP CONCERN - Chief complaint Chief Complaint: Cardiac - History obtained from History obtained from: Patient - History of Present Illness Timing: Today Pain level max: 0 Pain level now: 0 Improved by: rest Worsened by: nothing - Additonal information Additional information: Patient is a 67-year-old male who presents to the emergency department with complaints of near syncope 4 today. He states these episodes last for a few seconds at a time. He states during these episodes that he checks his pulse and it is irregular like prior episodes of atrial fibrillation. Has not changed his medications recently. Currently is asymptomatic. No chest pain, noted dyspnea, no vomiting. No abdominal pain. No headache. Patient states that his maximum heart rate during these episodes is approximately 112, his blood pressure was around 140 systolic. Review of Systems Ten Systems: 10 systems reviewed and negative Constitutional: denies: Fever, Chills Ears: denies: Ear pain Nose: denies: Rhinorrhea / runny nose, Congestion Throat: denies: Sore throat Cardiac: reports: Palpitations. denies: Chest pain / pressure Respiratory: denies: Cough GI: denies: Abdominal Pain, Nausea, Vomiting, Diarrhea : denies: Dysuria Skin: denies: Rash Musculoskeletal: denies: Neck pain, Back pain Neurologic: denies: Headache PD PAST MEDICAL HISTORY - Past Medical History Cardiovascular: Hypertension, High cholesterol Respiratory: COPD, Other Endocrine/Autoimmune: None GI: GI bleed : None HEENT: None Psych: None Musculoskeletal: Osteoarthritis Derm: None - Past Surgical History Past Surgical History: Yes General: Colonoscopy, EGD, Other Ortho: Arthroscopic surgery HEENT: Tonsil/Adenoidectomy - Present Medications Home Medications: Ambulatory Orders Medication Instructions Recorded Confirmed Meloxicam 15 mg PO DAILY 10/09/14 02/11/17 Albuterol Sulf [Ventolin Hfa 2 puffs INH Q4H PRN 02/11/17 02/11/17 Inhaler] Metoprolol Tartrate [Lopressor] 50 mg PO BID #60 tablet 02/12/17 Rivaroxaban [Xarelto] 20 mg PO QDBREAKFAST #30 tablet 02/12/17 diltiaZEM CD [Cardizem Cd] 180 mg PO DAILY #30 capsule 02/12/17 - Allergies Allergies/Adverse Reactions: Allergies Allergy/AdvReac Type Severity Reaction Status Date / Time fortino Allergy Severe Syncope Verified 02/11/17 03:37 - Social History Does the pt smoke?: Yes Smoking Status: Current every day smoker Does the pt drink ETOH?: No Does the pt have substance abuse?: No - Immunizations Immunizations are current?: Yes PD ED PE NORMAL - Vitals Vital signs reviewed: Yes - General General: Alert and oriented X 3, No acute distress - HEENT HEENT: Moist mucous membranes - Neck Neck: Supple, no meningeal sign, No JVD, No bruit - Cardiac Cardiac: RRR, Strong equal pulses - Respiratory Respiratory: No respiratory distress, Clear bilaterally - Abdomen Abdomen: Soft, Non tender, Non distended - Derm Derm: Warm and dry, No rash - Extremities Extremities: No edema, No calf tenderness / cord - Neuro Neuro: Alert and oriented X 3 - Psych Psych: Normal mood, Normal affect Results - Vitals Vitals: Vital Signs - 24 hr 01/01/18 01/01/18 13:06 15:10 Temperature 37 C Heart Rate 79 77 Respiratory 18 14 Rate Blood Pressure 118/71 93/67 O2 Saturation 97 97 Oxygen O2 Source Room air - EKG (time done) 1317 Rate: Rate (enter#) (79) Rhythm: NSR [place]: Normal Intervals: Normal [place] QRS: Normal Ischemia: Other (min ST elevation V1-4) - Labs Labs: Laboratory Tests 01/01/18 01/01/18 01/01/18 13:45 13:45 13:45 WBC 6.9 RBC 5.23 Hgb 15.7 Hct 46.4 MCV 88.8 MCH 29.9 MCHC 33.7 RDW 14.9 Plt Count 250 MPV 7.0 L Neut # (Auto) 4.7 Lymph # (Auto) 1.4 L [place] # (Auto) 0.6 Eos # (Auto) 0.2 Baso # (Auto) 0.1 Absolute Nucleated RBC 0.00 Nucleated RBC % 0.0 Sodium 137 Potassium 4.0 Chloride 100 L Carbon Dioxide 29 Anion Gap 8.0 BUN 19 Creatinine 1.2 Estimated GFR (MDRD) 60 L Glucose 144 H Calcium 9.4 Total Bilirubin 0.7 AST 25 ALT 33 Alkaline Phosphatase 52 Troponin I < 0.04 Total Protein 7.1 Albumin 3.6 Globulin 3.5 Albumin/Globulin Ratio 1.0 Lipase 46 - Rads (name of study) cxr Radiology: Prelim report reviewed, EMP read contemporaneously, See rad report ( no acute disease) PD MEDICAL DECISION MAKING - ED course Complexity details: reviewed results, re-evaluated patient, considered differential, d/w patient ED course: Patient is a 67-year-old male with what appears to be a paroxysmal atrial fibrillation. No episodes of A. fib while in the emergency department. No syncope or near syncope. Patient is well-appearing, nontoxic. No acute findings on EKG. Negative troponin. Asymptomatic here. We will have him follow-up with his doctor for further evaluation and care. Patient counseled regarding signs and symptoms for which I believe and urgent re-evaluation would be necessary. Patient with good understanding of and agreement to plan and is comfortable going home at this time This document was made in part using voice recognition software. While efforts are made to proofread this document, sound alike and grammatical errors may occur. - Sepsis Event Vital Signs: Vital Signs - 24 hr 01/01/18 01/01/18 13:06 15:10 Temperature 37 C Heart Rate 79 77 Respiratory 18 14 Rate Blood Pressure 118/71 93/67 O2 Saturation 97 97 Oxygen O2 Source Room air Departure - Departure Disposition: 01 Home, Self Care Clinical Impression: Near syncope A-fib Qualifiers: Atrial fibrillation type: paroxysmal Qualified Code(s): I48.0 - Paroxysmal atrial fibrillation Condition: Good Instructions: ED Afib Follow-Up: Roni Segura MD [Primary Care Provider] - Within 3 Days Comments: Your tests are normal today. Return if you worsen. You should avoid caffeine and stimulants as these may precipitate your atrial fibrillation. Discharge Date/Time: 01/01/18 15:11
[2018-01-01 13:59] LABS: BASOPHILS # (AUTO) 0.1 10^3/uL (0.0-0.1); EOSINOPHILS # (AUTO) 0.2 10^3/uL (0.0-0.7); EOSINOPHILS % (AUTO) 2.5 %; HGB - HEMOGLOBIN 15.7 g/dL (14.0-18.0); LYMPHOCYTES # (AUTO) 1.4 10^3/uL (1.5-3.5); LYMPHOCYTES % (AUTO) 19.8 %; MEAN CORPUSCULAR HEMOGLOBIN 29.9 pg (27.0-31.0); MEAN CORPUSCULAR HGB CONC 33.7 g/dL (32.0-36.0); MEAN CORPUSCULAR VOLUME 88.8 fL (80.0-94.0); MONOCYTES # (AUTO) 0.6 10^3/uL (0.0-1.0); MONOCYTES % (AUTO) 8.3 %; NEUTROPHILS # (AUTO) 4.7 10^3/uL (1.5-6.6); NEUTROPHILS % (AUTO) 68.4 %; PLT - PLATELET COUNT 250 10^3/uL (130-450); RED BLOOD COUNT 5.23 10^6/uL (4.70-6.10); RED CELL DISTRIBUTION WIDTH 14.9 % (12.0-15.0); WHITE BLOOD COUNT 6.9 x10^3/uL (4.8-10.8)
[2018-01-01] MEDS ORDERED: SODIUM CHLORIDE 0.9% 1,000 ML IV ONE (14:06)
[2018-01-01 14:12] LABS: ALBUMIN 3.6 g/dL (3.2-5.5); BILIRUBIN,TOTAL 0.7 mg/dL (0.2-1.0); CALCIUM 9.4 mg/dL (8.5-10.3); CREATININE 1.2 mg/dL (0.6-1.2); TOTAL PROTEIN 7.1 g/dL (6.7-8.2)
--- NOTE | 2018-01-01 14:54 | XRAY Report ---
Procedure Date: 01/01/2018 Accession Number: [id number] / [id number] Procedure: XR - Chest 1 View X-Ray CPT Code: 66723 FULL RESULT: EXAM: CHEST RADIOGRAPHY EXAM DATE: 01/01/2018 02:35 PM. CLINICAL HISTORY: Syncope. COMPARISON: 10/17/2017. TECHNIQUE: 1 view. FINDINGS: Lungs/Pleura: No focal opacities evident. No pleural effusion. No pneumothorax. Mediastinum: Heart size appears normal. Trachea is midline. Other: None. IMPRESSION: No acute cardiopulmonary abnormality. [facility]
[2018-01-01 15:11] VITALS: BP 93/67
== END 2018-01-01 15:11 | disposition home or self-care (01) ==
LOC: ED 13:03
DX: R55 Syncope and collapse (principal); I48.0 Paroxysmal atrial fibrillation; I10 Essential (primary) hypertension
CPT/HCPCS: 36415; 71045; 80053; 83690; 84484; 85025; 93005; 99283; 99284

== ENCOUNTER 2018-02-15 14:38 | Emergency (ER) | payer OTHER, MEDICARE ==
[2018-02-15 14:48] VITALS: BP 148/80
--- NOTE | 2018-02-15 14:53 | ED Physician Documentation ---
PD HPI UPPER EXT INJURY - Stated complaint Stated Complaint: NECK LAC - Chief complaint Chief Complaint: Laceration - History obtained from History obtained from: Patient - History of Present Illness Location: Other (He nicked his neck while shaving this morning and he is on Plavix and it will not stop bleeding. His tetanus is up-to-date.) Review of Systems Constitutional: denies: Fever, Chills Respiratory: denies: Dyspnea, Cough GI: reports: Reviewed and negative PD PAST MEDICAL HISTORY - Past Medical History Past Medical History: Yes Cardiovascular: Hypertension, High cholesterol Respiratory: COPD, Other Endocrine/Autoimmune: None GI: GI bleed : None HEENT: None Psych: None Musculoskeletal: Osteoarthritis Derm: None - Past Surgical History Past Surgical History: Yes General: Colonoscopy, EGD, Other Ortho: Arthroscopic surgery HEENT: Tonsil/Adenoidectomy - Present Medications Home Medications: Ambulatory Orders Medication Instructions Recorded Confirmed Meloxicam 15 mg PO DAILY 10/09/14 02/11/17 Albuterol Sulf [Ventolin Hfa 2 puffs INH Q4H PRN 02/11/17 02/11/17 Inhaler] Metoprolol Tartrate [Lopressor] 50 mg PO BID #60 tablet 02/12/17 Rivaroxaban [Xarelto] 20 mg PO QDBREAKFAST #30 tablet 02/12/17 diltiaZEM CD [Cardizem Cd] 180 mg PO DAILY #30 capsule 02/12/17 - Allergies Allergies/Adverse Reactions: Allergies Allergy/AdvReac Type Severity Reaction Status Date / Time fortino Allergy Severe Syncope Verified 02/15/18 14:48 - Social History Does the pt smoke?: Yes Smoking Status: Current every day smoker Does the pt drink ETOH?: No Does the pt have substance abuse?: No - Immunizations Immunizations are current?: Yes - POLST Patient has POLST: No PD ED PE NORMAL - Vitals Vital signs reviewed: Yes - General General: Alert and oriented X 3, No acute distress - HEENT HEENT: Other (On the anterior left neck there is a very shallow laceration measuring about 5 mm vertically. It is oozing blood.) - Neuro Neuro: Alert and oriented X 3, Normal speech Results - Vitals Vitals: Vital Signs - 24 hr 02/15/18 14:42 Temperature 36 C L Heart Rate 75 Respiratory 16 Rate Blood Pressure 148/80 H O2 Saturation 96 Oxygen O2 Source Room air Procedures - Laceration (location) neck Length in cm: 0.5 Wound type: Linear, Superficial Anesthesia: Lidocaine 2% with epi Skin layer closure: Dermabond Other: Tetanus UTD Complexity: Simple PD MEDICAL DECISION MAKING - Sepsis Event Vital Signs: Vital Signs - 24 hr 02/15/18 14:42 Temperature 36 C L Heart Rate 75 Respiratory 16 Rate Blood Pressure 148/80 H O2 Saturation 96 Oxygen O2 Source Room air Departure - Departure Disposition: 01 Home, Self Care Clinical Impression: Laceration Condition: Good Record reviewed to determine appropriate education?: Yes Instructions: ED Laceration Facial Skin Glue Comments: Your blood pressure was elevated today on check into the emergency department. This does not mean that you have hypertension, it is a common phenomenon to come to the emergency department and have elevated blood pressure. I recommend that you see your primary care physician within the week to have it rechecked when you are feeling better.
== END 2018-02-15 14:59 | disposition home or self-care (01) ==
LOC: ED 14:38
DX: S11.91XA Laceration without foreign body of unspecified part of neck, initial encounter (principal); Z79.02 Long term (current) use of antithrombotics/antiplatelets; I10 Essential (primary) hypertension; F17.200 Nicotine dependence, unspecified, uncomplicated; W26.8XXA Contact with other sharp object(s), not elsewhere classified, initial encounter; Y93.89 Activity, other specified
CPT/HCPCS: 12001; 99282

== ENCOUNTER 2018-04-03 21:28 | Observation (INO) | payer OTHER, MEDICARE ==
[2018-04-03] MEDS ORDERED: SODIUM CHLORIDE 0.9% 1,000 ML IV ONE (21:42)
[2018-04-03] MEDS ORDERED: PANTOPRAZOLE 40 MG VIAL IVP STA (21:42)
[2018-04-03 21:53] LABS: BASOPHILS # (AUTO) 0.1 10^3/uL (0.0-0.1); EOSINOPHILS # (AUTO) 0.4 10^3/uL (0.0-0.7); HGB - HEMOGLOBIN 12.7 g/dL (14.0-18.0); LYMPHOCYTES # (AUTO) 2.7 10^3/uL (1.5-3.5); LYMPHOCYTES % (AUTO) 30.1 %; MEAN CORPUSCULAR HEMOGLOBIN 30.2 pg (27.0-31.0); MEAN CORPUSCULAR HGB CONC 33.8 g/dL (32.0-36.0); MEAN CORPUSCULAR VOLUME 89.1 fL (80.0-94.0); MEAN PLATELET VOLUME 7.2 fL (7.4-11.4); MONOCYTES # (AUTO) 0.9 10^3/uL (0.0-1.0); MONOCYTES % (AUTO) 10.2 %; NEUTROPHILS # (AUTO) 4.9 10^3/uL (1.5-6.6); NEUTROPHILS % (AUTO) 54.7 %; PLT - PLATELET COUNT 314 10^3/uL (130-450); RED BLOOD COUNT 4.21 10^6/uL (4.70-6.10); WHITE BLOOD COUNT 8.9 x10^3/uL (4.8-10.8)
[2018-04-03 22:00] LABS: PT - PROTHROMBIN TIME 11.5 secs (9.9-12.6)
[2018-04-03] MEDS ORDERED: diltiaZEM INJ 5 MG/ML VIAL IVP STA (22:03)
[2018-04-03 22:06] LABS: ALBUMIN 3.8 g/dL (3.2-5.5); ALBUMIN/GLOBULIN RATIO 1.2 (1.0-2.2); BILIRUBIN,TOTAL 0.7 mg/dL (0.2-1.0); CALCIUM 8.8 mg/dL (8.5-10.3); CREATININE 1.1 mg/dL (0.6-1.2); TOTAL PROTEIN 6.9 g/dL (6.7-8.2)
[2018-04-03] MEDS ORDERED: ZOLPIDEM 5 MG TABLET PO PRN (23:08)
[2018-04-03] MEDS ORDERED: PROCHLORPERAZINE 10 MG/2 ML VIAL IVP PRN (23:08)
[2018-04-03] MEDS ORDERED: PROMETHAZINE 25 MG/1 ML VIAL IM PRN (23:08)
[2018-04-03] MEDS ORDERED: ACETAMINOPHEN 325 MG TABLET PO PRN (23:08)
[2018-04-03] MEDS ORDERED: oxyCODONE 5 MG TABLET PO PRN (23:08)
[2018-04-03] MEDS ORDERED: SODIUM CHLORIDE 0.9% 500 ML IV SCH (23:08)
[2018-04-03] MEDS ORDERED: ONDANSETRON 4 MG/2 ML VIAL IVP PRN (23:08)
--- NOTE | 2018-04-03 23:14 | ED Physician Documentation ---
PD HPI GI BLEED - Stated complaint Stated Complaint: SOA/LIGHTHEADED/BLACK STOOL - Chief complaint Chief Complaint: Cardiac - History obtained from History obtained from: Patient - History of Present Illness Timing - onset: Today Timing - details: Abrupt onset, Still present Associated symptoms: Black/tarry stool Similar symptoms before: Work up / diagnostics, Treatment Recently seen: Not recently seen - Additional information Additional information: Patient is a 67 year old male with a history of a fib, on plavix and history of GI bleed secondary to nsaid use who is presenting to the emergency department for dark tarry stools. patient states that tonight he had one episode but over the last week or so he has had episodes where he gets dizzy and light headed. Upon initial arrival to the emergency department patient was tachycardic in the in 160s-170s. Review of Systems Constitutional: reports: Sweats Eyes: denies: Loss of vision, Decreased vision Cardiac: reports: Chest pain / pressure, Palpitations GI: reports: Bloody / black stool. denies: Abdominal Pain, Nausea, Vomiting : reports: Reviewed and negative PD PAST MEDICAL HISTORY - Past Medical History Cardiovascular: Hypertension, High cholesterol, Atrial fibrillation Respiratory: COPD, Other Endocrine/Autoimmune: None GI: GI bleed : None HEENT: None Psych: None Musculoskeletal: Osteoarthritis Derm: None - Past Surgical History Past Surgical History: Yes General: Colonoscopy, EGD, Other Ortho: Arthroscopic surgery HEENT: Tonsil/Adenoidectomy - Present Medications Home Medications: Ambulatory Orders Medication Instructions Recorded Confirmed Meloxicam 15 mg PO DAILY 10/09/14 02/11/17 Albuterol Sulf [Ventolin Hfa 2 puffs INH Q4H PRN 02/11/17 02/11/17 Inhaler] Metoprolol Tartrate [Lopressor] 50 mg PO BID #60 tablet 02/12/17 Rivaroxaban [Xarelto] 20 mg PO QDBREAKFAST #30 tablet 02/12/17 diltiaZEM CD [Cardizem Cd] 180 mg PO DAILY #30 capsule 02/12/17 - Allergies Allergies/Adverse Reactions: Allergies Allergy/AdvReac Type Severity Reaction Status Date / Time fortino Allergy Severe Syncope Verified 02/15/18 14:48 - Social History Does the pt smoke?: Yes Smoking Status: Current every day smoker Does the pt drink ETOH?: No Does the pt have substance abuse?: No - Immunizations Immunizations are current?: Yes - POLST Patient has POLST: No PD ED PE NORMAL - Vitals Vital signs reviewed: Yes - General General: Alert and oriented X 3 - HEENT HEENT: Atraumatic - Neck Neck: No JVD - Respiratory Respiratory: No respiratory distress - Derm Derm: Other (diaphoretic) - Extremities Extremities: No deformity - Neuro Neuro: Alert and oriented X 3, No motor deficit, Normal speech Eye Opening: Spontaneous Motor: Obeys Commands Verbal: Oriented GCS Score: 15 PD ED PE EXPANDED - General General: Alert, Other (diaphoretic) - Cardiac Cardiac: Tachy, Irregularly irregular - Rectal Rectal: Heme Occult Pos - QC +, Hemorrhoid Results - Vitals Vitals: Vital Signs - 24 hr 04/03/18 04/03/18 04/03/18 21:35 22:05 22:17 Heart Rate 178 H 118 H 97 Respiratory 18 15 16 Rate Blood Pressure 109/48 L 130/75 107/65 O2 Saturation 98 98 99 04/03/18 22:41 Heart Rate 109 H Respiratory 17 Rate Blood Pressure 116/53 L O2 Saturation 98 Oxygen O2 Source Room air - EKG (time done) 2134 Rate: Rate (enter#) (175), Tachy Rhythm: SVT [place]: Normal Ischemia: ST depression Compare to prior EKG: Changed from prior EKG - Labs Labs: Laboratory Tests 04/03/18 04/03/18 04/03/18 21:37 21:37 21:37 WBC 8.9 RBC 4.21 L Hgb 12.7 L Hct 37.5 L MCV 89.1 MCH 30.2 MCHC 33.8 RDW 14.0 Plt Count 314 MPV 7.2 L Neut # (Auto) 4.9 Lymph # (Auto) 2.7 [place] # (Auto) 0.9 Eos # (Auto) 0.4 Baso # (Auto) 0.1 Absolute Nucleated RBC 0.01 Nucleated RBC % 0.1 PT 11.5 INR 1.0 APTT 27.4 Sodium 140 Potassium 3.8 Chloride 105 Carbon Dioxide 24 Anion Gap 11.0 BUN 51 H Creatinine 1.1 Estimated GFR (MDRD) 66 L Glucose 121 H Calcium 8.8 Total Bilirubin 0.7 AST 29 ALT 40 Alkaline Phosphatase 50 Troponin I B-Natriuretic Peptide Total Protein 6.9 Albumin 3.8 Globulin 3.1 Albumin/Globulin Ratio 1.2 Lipase 37 Blood Type Antibody Screen 04/03/18 04/03/18 04/03/18 21:37 21:37 21:37 WBC RBC Hgb Hct MCV MCH MCHC RDW Plt Count MPV Neut # (Auto) Lymph # (Auto) [place] # (Auto) Eos # (Auto) Baso # (Auto) Absolute Nucleated RBC Nucleated RBC % PT INR APTT Sodium Potassium Chloride Carbon Dioxide Anion Gap BUN Creatinine Estimated GFR (MDRD) Glucose Calcium Total Bilirubin AST ALT Alkaline Phosphatase Troponin I < 0.04 B-Natriuretic Peptide 22 Total Protein Albumin Globulin Albumin/Globulin Ratio Lipase Blood Type O POSITIVE Antibody Screen NEGATIVE PD MEDICAL DECISION MAKING - ED course Complexity details: reviewed old records, reviewed results, re-evaluated patient, considered differential, d/w patient, d/w real estate listing consultant ED course: Patient was seen and examined at bedside. patient was tachycardic in the 170s, and moderately hypotensive. ekg was performed which was consistent with svt. patient was placed on a monitor. IV access was gained and liter bolus was started along with protonix. After the fluids and valsalva maneuvers patient's heart rate improved to the 120s in A fib. patient was treated with a dose of diltiazam and the tachycardia resolved and the patient was at a fib in the 90s. Rectal exam was performed and was positive. Patient's hemoglobin was stable and his blood pressure had improved. Case was discussed with circulation director surgeon who stated he would evaluate the patient tomorrow. Case was then discussed with the hospitalist who accepted the patient. - Sepsis Event Vital Signs: Vital Signs - 24 hr 04/03/18 04/03/18 04/03/18 21:35 22:05 22:17 Heart Rate 178 H 118 H 97 Respiratory 18 15 16 Rate Blood Pressure 109/48 L 130/75 107/65 O2 Saturation 98 98 99 04/03/18 22:41 Heart Rate 109 H Respiratory 17 Rate Blood Pressure 116/53 L O2 Saturation 98 Oxygen O2 Source Room air Departure - Departure Disposition: ED Place in Observation Clinical Impression: Upper GI bleed A-fib Qualifiers: Atrial fibrillation type: paroxysmal Qualified Code(s): I48.0 - Paroxysmal atrial fibrillation Condition: Stable Discharge Date/Time: 04/04/18 00:10
--- NOTE | 2018-04-03 23:14 | HISTORY & PHYSICAL EXAMINATION ---
Chief Complaint - Chief Complaint Chief Complaint: Black tarry stools History of Present Illness - Admitted From Admitted From:: Emergency Department - History Obtained From Records Reviewed: Yes History obtained from: Patient Exam Limitations: None - History of Present Illness HPI Comment/Other: Patient is a 67-year-old gentleman with a past medical history significant for hypertension, hyperlipidemia, COPD, atrial fibrillation, osteoarthritis on meloxicam, history of a GI bleed secondary to Aleve and peripheral vascular disease status post angioplasty 1-1/2 months ago currently on aspirin, Plavix and cilostazol who presented to the emergency department with a chief complaint of black tarry stools. The patient states he was in his normal state of health until about a week and a half ago when he began feeling out of sorts. He states he had symptoms off and on for the last week and a half where at times he would feel like he just ran 2 miles. He states he would feel out of breath and at times would become lightheaded. He states that that time he would check his pulse and he felt that he was irregular and going fast but then with's vital down on its own. He denies having any chest pain or palpitations. He states that the symptoms were never really very persistent therefore he did not seek any medical help. The patient states he continued to do his work and today when he went to work he had increasing amount of lightheadedness and shortness of breath and then felt the urge to go to the bathroom. The patient states that he had a bowel movement with dark tarry stools and at this point he was concerned that he may be bleeding so he came to the emergency department. The patient denies any other recent black or bloody stools. The patient states that he quit smoking cigars about a month and a half ago when he had his angioplasty. He denies any alcohol use. The patient states that he was told by his vascular surgeon that he needs to be on the Plavix for 3 months due to his angioplasty. Patient denies any headaches, blurred vision, runny nose, sore throat, nasal congestion, difficulty swallowing, chest pain, orthopnea, PND, increased lower extremity swelling, palpitations, abdominal pain, nausea, vomiting, diarrhea, constipation, urinary urgency, urinary frequency, dysuria, joint swelling, neck stiffness, recent unintentional weight loss, changes in his appetite, skin rash, skin changes, hair loss, night sweats or any focal neurologic deficits. The patient does admit to chronic back and joint pain. On presentation to the emergency department the patient was afebrile however he was tachycardic with a heart rate of 178 and SVT and borderline hypotensive with a blood pressure of 109/48. The patient was not in any respiratory distress. In the emergency department the patient received 1 dose of IV diltiazem 20 mg along with a liter of fluid with which the patient's heart rate improved down to the high 90s low 100s. The patient's blood pressure also improved up to 139/94. The patient however was guaiac positive and hemoglobin was found to be 12.7 from a baseline of around 15. The emergency room physician spoke with the surgeon litigation counsel who asked that the patient be placed in observation for GI bleed by the hospitalist team and that he would follow in consultation for possible EGD. The patient was given a dose of IV Protonix in the emergency department as well. History - Past Medical History Cardiovascular: reports: Hypertension, High cholesterol, Peripheral Vascular Disease (s/p angioplasty), Atrial fibrillation Respiratory: reports: COPD, Other Endocrine/Autoimmune: reports: None GI: reports: GI bleed : reports: None HEENT: reports: None Psych: reports: None Musculoskeletal: reports: Osteoarthritis Derm: reports: None MRSA Hx?: No - Past Surgical History General: reports: Colonoscopy, EGD, Other Ortho: reports: Arthroscopic surgery Cardiovascular: reports: Angioplasty HEENT: reports: Tonsil/Adenoidectomy - Family & Social History Family History: Mother: (Mom of complications of diabetes and obesity. Patient is not in touch with his father.), Diabetes, Type 2, Sister: Diabetes, Type 2, Brother: CAD Living arrangement: At home Living Situation: Alone Social History Notes: The patient is currently to his second and lives with her in [place]. 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 The patient has kids from his first marriage but is not in contact with those children. He has been with his second for 43 years and they have 3 daughters together. The patient is a former smoker he smoked a pack a day for 15 years. He also used chewing tobacco for about 15 years. He does smoke 3-4 cigars a day which she has been doing so for the last 5 years. He has a history of alcohol abuse and used to drink a case of beer with 1/5 of hard alcohol daily. He stopped drinking about 16 years ago. He denies any recreational substance abuse in the form of cannabis, cocaine, heroin, LSD or s peed. - POLST Patient has POLST: No POLST Status: Full Code Meds/Allgy - Home Medications Home Medications: Ambulatory Orders Medication Instructions Recorded Confirmed Meloxicam 15 mg PO DAILY 10/09/14 02/11/17 Albuterol Sulf [Ventolin Hfa 2 puffs INH Q4H PRN 02/11/17 02/11/17 Inhaler] Metoprolol Tartrate [Lopressor] 50 mg PO BID #60 tablet 02/12/17 Rivaroxaban [Xarelto] 20 mg PO QDBREAKFAST #30 tablet 02/12/17 diltiaZEM CD [Cardizem Cd] 180 mg PO DAILY #30 capsule 02/12/17 - Allergies Allergies/Adverse Reactions: Allergies Allergy/AdvReac Type Severity Reaction Status Date / Time fortino Allergy Severe Syncope Verified 02/15/18 14:48 Review of Systems - Other Findings Other Findings: A comprehensive review of systems was performed the pertinent positives and negatives are stated above in the HPI and the remainder of the review of systems is negative. Prior Level of Functionality: Patient is fully independent and capable of performing all his ADLs independently. Exam - Vital Signs Reviewed Vital Signs: Yes Vital Signs: Vital Signs x48h Pulse Resp BP Pulse Ox 04/03/18 22:41 109 H 17 116/53 L 98 04/03/18 22:17 97 16 107/65 99 04/03/18 22:05 118 H 15 130/75 98 04/03/18 21:35 178 H 18 109/48 L 98 - Physical Exam General Appearance: positive: No acute distress, Alert Eyes Bilateral: positive: Normal inspection, PERRL, EOMI, No lid inflammation, Conjunctivae nml, No scleral icterus ENT: positive: ENT inspection nml, Pharynx nml, Dry mucous membranes. negative: Purulent nasal drainage, Pharyngeal erythema, Oral lesions Neck: positive: Nml inspection, Thyroid nml, No JVD, Trachea midline. negative: Thyromegaly, Lymphadenopathy (R), Stiff neck, Carotid bruit, Tracheal deviation Respiratory: positive: Chest non-tender, No respiratory distress, Wheezes (Scattered bilateral) Cardiovascular: positive: No murmur, No gallop, Irregularly irregular, Tachycard ia Peripheral Pulses: positive: 2+ Abdomen: positive: Non-tender, No organomegaly, Nml bowel sounds, No distention, Other (Obese). negative: Guarding, Rebound, Hepatomegaly Back: positive: Nml inspection. negative: CVA tenderness (R), CVA tenderness (L) Skin: positive: Color nml, No rash, Warm, Dry. negative: Cyanosis, Diaphoresis, Pallor, Skin rash Extremities: positive: Non-tender, Full ROM, Nml appearance, No pedal edema Neurologic/Psychiatric: positive: Oriented x3, CN's nml (2-12), Motor nml, Sensation nml, Mood/affect nml Conclusion/Plan - Problem List (1) GI bleed Conclusion/Plan: Patient presented to the emergency department with black stools. Patient has a history of a GI bleed 5-6 years ago which he states was due to leave. Patient states he has not been on Aleve since but has been taking meloxicam for his osteoarthritis. The patient is also on Plavix, aspirin and cilostazol for peripheral vascular disease and recent angioplasty. According to the patient's vascular surgeon the patient has been told to continue Plavix for 3 months. The patient was previously a smoker but quit 1-1/2 months ago. The patient appears to have an upper GI bleed which is likely secondary to medications including Plavix, aspirin, cilostazol and meloxicam. The patient's hemoglobin was found to be 12.7 down from a baseline of around 15. The patient was also borderline hypotensive on presentation with significant tachycardia. The patient so far is only had one black tarry bowel movement. Plan: 2 large-bore IVs Hold meloxicam, aspirin and cilostazol Discussed with patient's vascular surgeon about also holding Plavix Type and cross Monitor H&H every 6 IV Protonix twice daily Surgery consult for EGD N.p.o. IV fluids Qualifiers: GI bleed type/associated pathology: melena Qualified Code(s): K92.1 - Melena (2) Atrial fibrillation with RVR Conclusion/Plan: On presentation to the emergency department the patient was in SVT with a heart rate in the 170s. The patient has history of atrial fibrillation and once heart rate was slow the patient was found to be in atrial fibrillation. The patient was given a dose of IV diltiazem with which the patient's heart rate did improve down to the low 100s. The patient was previously on Xarelto but this was stopped about 9 months ago by his stock or delivery clerk in [place]. The patient's chads 2 score is 1. Patient symptoms over the last week and a half of shortness of breath and lightheadedness are likely due to to him having episodes of A. fib with RVR. Plan: Restart the patient's home doses of p.o. metoprolol and diltiazem Monitor on telemetry Echocardiogram Titrate patient's oral medications for rate control of atrial fibrillation IV diltiazem as needed Serial troponins x3 Hold off on any anticoagulation given the patient's ongoing GI bleed Hold aspirin given the patient's ongoing GI bleed. Check TSH (3) Status post peripheral artery angioplasty Conclusion/Plan: Patient has history of peripheral vascular disease and just underwent an angioplasty 1-1/2 months ago at [facility] in [place]. The patient cannot remember the name of his vascular surgeon. He was told however that he needs to continue Plavix for 3 months. The patient was also placed on cilostazol. Plan: We will need to discuss with the patient's vascular surgeon the importance of continuing Plavix with ongoing GI bleed. For now we will hold the patient's cilostazol and Plavix until we have further discussion with his vascular surgeon. We will need to discuss risk versus benefit given the patient just had recent angioplasty and would be at risk for possible atherosclerosis and restenosis. (4) Hypertension Conclusion/Plan: Patient has a history of hypertension but on presentation to the emergency department the patient pressure was borderline low. This could have been secondary to ongoing GI bleed or due to his rapid A. fib. Patient's blood pressure did improve after his A. fib rate was improved. The patient will be continued on his rate control medications of diltiazem and metoprolol. We will continue to monitor his blood pressure and titrate medications as needed. Qualifiers: Hypertension type: essential hypertension Qualified Code(s): I10 - Ericka najera (primary) hypertension (5) Osteoarthritis Conclusion/Plan: Patient has osteoarthritis of his spine as well as his knees. The patient is status post bilateral knee replacement. Patient currently takes meloxicam chronically for control of pain. The patient currently is having a GI bleed therefore meloxicam will be held as it is an NSAID and could have been 1 of the causes for this GI bleed. The patient instead will be given Tylenol and oxycodone as needed for his pain. Qualifiers: Osteoarthritis location: unspecified site (6) COPD (chronic obstructive pulmonary disease) Conclusion/Plan: Patient has a history of COPD and uses rescue inhalers and Symbicort at home. While the patient is hospitalized here he will be placed on budesonide twice daily and formoterol twice daily. He will also be placed on duo nebs as needed. Currently the patient does not appear to be in exacerbation although he does have some wheezing on examination. Patient is not hypoxic. Patient shortness of breath was likely due to his A. fib RVR and not related to his COPD. Qualifiers: COPD type: chronic bronchitis - Lab Results Lab results reviewed: Yes Fish Bones: 04/03/18 21:37 04/03/18 21:37 Other Lab Results: Laboratory Tests 04/03/18 04/03/18 04/03/18 21:37 21:37 21:37 WBC 8.9 RBC 4.21 L Hgb 12.7 L Hct 37.5 L MCV 89.1 MCH 30.2 MCHC 33.8 RDW 14.0 Plt Count 314 MPV 7.2 L Neut # (Auto) 4.9 Lymph # (Auto) 2.7 [place] # (Auto) 0.9 Eos # (Auto) 0.4 Baso # (Auto) 0.1 Absolute Nucleated RBC 0.01 Nucleated RBC % 0.1 PT 11.5 INR 1.0 APTT 27.4 Sodium 140 Potassium 3.8 Chloride 105 Carbon Dioxide 24 Anion Gap 11.0 BUN 51 H Creatinine 1.1 Estimated GFR (MDRD) 66 L Glucose 121 H Calcium 8.8 Total Bilirubin 0.7 AST 29 ALT 40 Alkaline Phosphatase 50 Troponin I B-Natriuretic Peptide Total Protein 6.9 Albumin 3.8 Globulin 3.1 Albumin/Globulin Ratio 1.2 Lipase 37 Blood Type Antibody Screen 04/03/18 04/03/18 04/03/18 21:37 21:37 21:37 WBC RBC Hgb Hct MCV MCH MCHC RDW Plt Count MPV Neut # (Auto) Lymph # (Auto) [place] # (Auto) Eos # (Auto) Baso # (Auto) Absolute Nucleated RBC Nucleated RBC % PT INR APTT Sodium Potassium Chloride Carbon Dioxide Anion Gap BUN Creatinine Estimated GFR (MDRD) Glucose Calcium Total Bilirubin AST ALT Alkaline Phosphatase Troponin I < 0.04 B-Natriuretic Peptide 22 Total Protein Albumin Globulin Albumin/Globulin Ratio Lipase Blood Type O POSITIVE Antibody Screen NEGATIVE - EKG Results EKG Interpreted Independently: Yes EKG Findings: Atrial fibrillation with a rapid ventricular rate. No ST elevations or ischemic changes noted. Core Measures - Anticipated LOS I expect patient to be DC'd or transferred within 96 hours.: Yes - DVT/VTE - Prophylaxis VTE/DVT Device ordered at admit?: Yes
[2018-04-03] MEDS ORDERED: IPRATROPIUM/ALBUTEROL 3 ML NEB INH PRN (23:19)
[2018-04-04] MEDS: METOPROLOL TARTRATE 25 MG TABLET PO SCH ×3 (00:54→20:49)
[2018-04-04] MEDS: SODIUM CHLORIDE 0.9% 1,000 ML IV SCH ×3 (00:55→16:10)
[2018-04-04] MEDS: SODIUM CHLORIDE FLUSH 0.9% 10 ML SYRINGE IVP SCH ×4 (00:55→23:43)
[2018-04-04] MEDS ORDERED: diltiaZEM INJ 5 MG/ML VIAL IVP ONE (01:11)
[2018-04-04 04:46] LABS: BASOPHILS % (AUTO) 0.3 %; EOSINOPHILS # (AUTO) 0.3 10^3/uL (0.0-0.7); EOSINOPHILS % (AUTO) 4.9 %; HGB - HEMOGLOBIN 10.3 g/dL (14.0-18.0); LYMPHOCYTES # (AUTO) 1.4 10^3/uL (1.5-3.5); LYMPHOCYTES % (AUTO) 25.2 %; MEAN CORPUSCULAR HEMOGLOBIN 30.7 pg (27.0-31.0); MEAN CORPUSCULAR HGB CONC 33.5 g/dL (32.0-36.0); MEAN CORPUSCULAR VOLUME 91.6 fL (80.0-94.0); MONOCYTES # (AUTO) 0.6 10^3/uL (0.0-1.0); MONOCYTES % (AUTO) 11.6 %; NEUTROPHILS # (AUTO) 3.2 10^3/uL (1.5-6.6); PLT - PLATELET COUNT 214 10^3/uL (130-450); RED BLOOD COUNT 3.34 10^6/uL (4.70-6.10); RED CELL DISTRIBUTION WIDTH 14.5 % (12.0-15.0); WHITE BLOOD COUNT 5.5 x10^3/uL (4.8-10.8)
[2018-04-04 04:51] LABS: INR 1.1 (0.8-1.2); PT - PROTHROMBIN TIME 12.4 secs (9.9-12.6)
[2018-04-04 04:56] LABS: ALBUMIN/GLOBULIN RATIO 1.2 (1.0-2.2); BILIRUBIN,TOTAL 0.5 mg/dL (0.2-1.0); CALCIUM 7.9 mg/dL (8.5-10.3); CREATININE 0.8 mg/dL (0.6-1.2); TOTAL PROTEIN 5.6 g/dL (6.7-8.2)
[2018-04-04] MEDS: POLYETHYLENE GLYCOL 3350 17 GM PACKET PO SCH (07:28)
--- NOTE | 2018-04-04 08:25 | CONSULTATION NOTE ---
Referring Provider Name of Referring Provider:: Dr. Zhu Consult Date: 04/04/18 Chief Complaint - Chief Complaint Chief Complaint: light headedness and melena History of Present Illness - Admitted From Admitted From:: ER - History Obtained From Records Reviewed: yes History obtained from: pt, records Exam Limitations: none - History of Present Illness HPI Comment/Other: 67 yo male with several days of intermittent palpitations and lightheadedness followed by onset of passage of a black tarry stool yesterday prompting evaluation in the ER last night and subsequent admission. He was found to be in SVT, which then converted to atrial fibrillation after diltiazem, with adequate rate control. He was mildly hypotensive but then became stable and normotensive. No subsequent bms, no abd pain, indegestion, hx PUD, N/V, hematochezia (except occasional BRBPR on toilet paper after bms which he attributes to hemorrhoids.) He currently is taking a combination of low dose aspirin therapy, cilostazol, and clopidogrel for peripheral arterial disease, s/p femoral artery angioplasty and stent approx 6 weeks ago. He also takes meloxicam for arthritis sx. He has a hx of a similar episode in 2013 when he presented with syncope and was noted to have melenic stool. An EGD showed an adherent clot just below the [place] thought to represent a Malorie Mar tear. His bleeding stopped spontaneously. JORGE L testing was neg for H. pylori infection. Med list at that time did not show any antiplatelet or NSAID therapy. He has a hx of alcoholism but has been abstin ent for many years. He has a hx of tobacco dependence but has been abstinent for 3 months in order to have his angioplasty. His last colonoscopy was approx 10 yrs ago and reportedly nl. Neg FH GI tumors. History - Past Medical History Cardiovascular: reports: Hypertension, High cholesterol, Atrial fibrillation Respiratory: reports: COPD, Other Endocrine/Autoimmune: reports: None GI: reports: GI bleed, Hemorrhoids. denies: None, Ulcers, Colon polyps, Chronic diarrhea, Chronic constipation, Hepatitis : reports: None HEENT: reports: None Psych: reports: None Musculoskeletal: reports: Osteoarthritis Derm: reports: None MRSA Hx?: No - Past Surgical History General: reports: Colonoscopy, EGD, Other (inguinal hernia repair) Ortho: reports: Arthroscopic surgery Cardiovascular: reports: Angioplasty (right femoral) HEENT: reports: Tonsil/Adenoidectomy - Family & Social History Family History: Mother: (Mom of complications of diabetes and obesity. Patient is not in touch with his father.), Diabetes, Type 2, Sister: Diabetes, Type 2, Brother: CAD Family History Comment/Other: neg for GI tumors Living arrangement: At home Living Situation: Alone Social History Notes: The patient is currently to his second and li ves with her in [place]. 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 The patient has kids from his first marriage but is not in contact with those children. He has been with his second for 43 years and they have 3 daughters together. The patient is a former smoker he smoked a pack a day for 15 years. He also used chewing tobacco for about 15 years. He does smoke 3-4 cigars a day which she has been doing so for the last 5 years. He has a history of alcohol abuse and used to drink a case of beer with 1/5 of hard alcohol daily. He stopped drinking about 16 years ago. He denies any recreat ional substance abuse in the form of cannabis, cocaine, heroin, LSD or speed. - Substance History Use: Uses substance without health or social issues: NONE - POLST Patient has POLST: No POLST Status: Full Code Meds/Allgy - Home Medications Home Medications: Ambulatory Orders Medication Instructions Recorded Confirmed Meloxicam 15 mg PO DAILY 10/09/14 02/11/17 Albuterol Sulf [Ventolin Hfa 2 puffs INH Q4H PRN 02/11/17 02/11/17 Inhaler] Metoprolol Tartrate [Lopressor] 50 mg PO BID #60 tablet 02/12/17 diltiaZEM CD [Cardizem Cd] 180 mg PO DAILY #30 capsule 02/12/17 - Allergies Allergies/Adverse Reactions: Allergies Allergy/AdvReac Type Severity Reaction Status Date / Time fortino Allergy Severe Syncope Verified 02/15/18 14:48 Review of Systems - Constitutional Constitutional: reports: Weight gain. denies: Poor appetite, Weight loss - Cardiovascular Cariovascular: reports: Irregular heart rate, Palpitations, Lightheadedness - Gastrointestinal Gastrointestinal: reports: Change in bowel habits, Black stools. denies: Abdominal pain, Abdominal distention, Constipation, Diarrhea, Rectal bleeding, Bloody stools, Nausea, Vomiting, Bile emesis, Ronnie blood emesis, Coffee grounds emesis, Reflux/heartburn, Bloating, Poor appetite - Hematologic/Lymphatic Hematologic/Lymphatic: denies: Blood clots, Bleeding tendencies - All Other Systems All Other Systems: reports: Reviewed and negative Exam - Vital Signs Reviewed Vital Signs: Yes Vital Signs: Vital Signs x48h Temp Pulse Resp BP BP Pulse Ox 04/04/18 07:44 36.4 C L 77 20 122/64 100 04/04/18 06:06 114/76 04/04/18 04:42 73 18 114/63 99 04/04/18 02:15 68 95/55 L 04/04/18 02:00 84 104/42 L 04/04/18 01:47 79 109/54 L 04/04/18 01:42 80 90/55 L 04/04/18 01:40 86 96/35 L 04/04/18 01:38 77 100/39 L 04/04/18 01:33 48 L 122/56 L 04/04/18 01:31 110/58 L 04/04/18 01:30 111/75 04/04/18 01:27 114/74 04/04/18 00:54 146/83 H - Physical Exam General Appearance: positive: No acute distress, Alert Eyes Bilateral: positive: Conjunctivae nml, No scleral icterus ENT: positive: ENT inspection nml, No signs of dehydration Neck: positive: No JVD. negative: Lymphadenopathy (R), Lymphadenopathy (L) Respiratory: positive: Chest non-tender, No respiratory distress, Breath sounds nml. negative: Wheezes, Rales, Rhonchi Cardiovascular: positive: Regular rate & rhythm, No murmur, No gallop Abdomen: positive: Non-tender, No organomegaly, Nml bowel sounds, No distention, Other (obese). negative: Guarding, Rebound, Hepatomegaly, Splenomegaly, Mass Extremities: positive: No pedal edema. negative: Calf tenderness Neurologic/Psychiatric: positive: Oriented x3 Conclusion/Plan - Diagnosis Diagnosis: GI bleed/melena. Likely UGI source including PUD, gastritis, H. pylori, dieulafoy lesion, doubt neoplasm, varices, lower gi source; likely triggered by combination of NSAIDs and triple agent antiplatelet therapy. Currently hemodynamically stable with no signs of continued active bleeding. - Plan Plan: Agree with bowel rest, observation, IV PPI therapy, holding antiplatelet therapy. Plan EGD in AM. PAR conference with pt who has agreed to proceed as planned. The procedure can be performed sooner if necessary. Thanks, - Lab Results Lab results reviewed: Yes Fish Bones: 04/04/18 04:35 04/04/18 04:35 - EKG Results EKG Interpreted Independently: No
[2018-04-04] MEDS: PANTOPRAZOLE 40 MG VIAL IVP SCH ×2 (08:37→20:49)
--- NOTE | 2018-04-04 08:56 | PROVIDER PROGRESS NOTE ---
Subjective - Prog Note Date Prog Note Date: 04/04/18 Prog Note Time: 08:52 - Subjective Pt reports feeling: No change Subjective: He is hungry. He really wants to eat. He was admitted as a GI bleed last night he was kept n.p.o. with anticipation he would have an EGD today. I spoken to general surgery who is not going to scope him today because of his platelet inhibitors. He would like to wait at least 24-36 hours before he takes him to endoscopy and possibly does any type of intervention. He has not had any further stools. No nausea no vomiting no abdominal pain. Current Medications - Current Medications Current Medications: Active Medications Acetaminophen (Tylenol) 650 mg PO Q4HR PRN PRN Reason: Pain 1 to 4 Albuterol/Ipratropium (Duoneb) 3 ml INH Q4HR PRN PRN Reason: Wheezing Budesonide (Pulmicort) 0.5 mg INH RTBID [facility] Diltiazem HCl (Cardizem) 60 mg PO Q6HR [facility] Last Admin: 04/04/18 06:06 Dose: 60 mg Formoterol Fumarate (Perforomist) 20 mcg INH RTBID [facility] Sodium Chloride (Normal Saline 0.9%) 1,000 mls @ 100 mls/hr IV .Q10H [facility] Last Admin: 04/04/18 06:08 Dose: 100 mls/hr Metoprolol Tartrate (Lopressor) 50 mg PO BID [facility] Last Admin: 04/04/18 08:36 Dose: 50 mg Ondansetron HCl (Zofran Inj) 4 mg IVP Q6HR PRN PRN Reason: Nausea / Vomiting Oxycodone HCl (Roxicodone) 5 mg PO Q4HR PRN PRN Reason: Pain 5 to 7 Pantoprazole Sodium (Protonix) 40 mg IVP BID [facility] Last Admin: 04/04/18 08:37 Dose: 40 mg Polyethylene Glycol (Miralax) 17 gm PO DAILY [facility] Last Admin: 04/04/18 07:28 Dose: Not Given Prochlorperazine Edisylate (Compazine Inj) 10 mg IVP Q6HR PRN PRN Reason: Nausea / Vomiting Promethazine HCl (Phenergan Inj) 25 mg IM Q6HR PRN PRN Reason: Nausea / Vomiting Sodium Chloride (Normal Saline Flush 0.9%) 10 ml IVP PRN PRN PRN Reason: NEEDED PER PROVIDER ORDERS Sodium Chloride (Normal Saline Flush 0.9%) 10 ml IVP 0100,0900,1700 [facility] Last Admin: 04/04/18 06:11 Dose: 10 ml Zolpidem Tartrate (Ambien) 5 mg PO QPM PRN PRN Reason: Insomnia Meloxicam 15 mg PO DAILY 10/09/14 Albuterol Sulf [Ventolin Hfa Inhaler] 2 puffs INH Q4H PRN 02/11/17 Objective - Vital Signs/Intake & Output Reviewed Vital Signs: Yes Vital Signs: Vital Signs x48h Temp Pulse Resp BP BP Pulse Ox 04/04/18 07:44 36.4 C L 77 20 122/64 100 04/04/18 06:06 114/76 04/04/18 04:42 73 18 114/63 99 04/04/18 02:15 68 95/55 L 04/04/18 02:00 84 104/42 L 04/04/18 01:47 79 109/54 L 04/04/18 01:42 80 90/55 L 04/04/18 01:40 86 96/35 L 04/04/18 01:38 77 100/39 L 04/04/18 01:33 48 L 122/56 L 04/04/18 01:31 110/58 L 04/04/18 01:30 111/75 04/04/18 01:27 114/74 04/04/18 00:54 146/83 H Intake & Output: Intake & Output 04/01/18 04/02/18 04/03/18 04/04/18 23:59 23:59 23:59 23:59 Intake Total 1000 1021.667 Balance 1000 1021.667 - Objective General Appearance: positive: No acute distress, Alert Eyes Bilateral: positive: PERRL, EOMI ENT: positive: Pharynx nml Neck: positive: No JVD. negative: Stiff neck, Carotid bruit Respiratory: positive: Chest non-tender. negative: Wheezes, Rales, Rhonchi Cardiovascular: positive: Regular rate & rhythm. negative: Systolic murmur, Gallop/S4, Friction rub Abdomen: positive: Non-tender, No organomegaly, Nml bowel sounds, No distention. negative: Guarding, Rebound Skin: positive: Warm, Dry Extremities: positive: Full ROM, No pedal edema Neurologic/Psychiatric: positive: Oriented x3, CN's nml (2-12), Motor nml, Sensation nml - Lab Results Fish Bones: 04/05/18 11:30 04/05/18 04:30 Other Labs: Lab Results x24hrs 04/04/18 04/04/18 04/04/18 Range/Units 04:35 04:35 04:35 WBC (4.8-10.8) x10^3/uL RBC (4.70-6.10) 10^6/uL Hgb (14.0-18.0) g/dL Hct (42.0-52.0) % MCV (80.0-94.0) fL MCH (27.0-31.0) pg MCHC (32.0-36.0) g/dL RDW (12.0-15.0) % Plt Count (130-450) 10^3/uL MPV (7.4-11.4) fL Neut # (Auto) (1.5-6.6) 10^3/uL Lymph # (Auto) (1.5-3.5) 10^3/uL [place] # (Auto) (0.0-1.0) 10^3/uL Eos # (Auto) (0.0-0.7) 10^3/uL Baso # (Auto) (0.0-0.1) 10^3/uL Absolute Nucleated RBC x10^3/uL Nucleated RBC % /100WBC PT (9.9-12.6) secs INR (0.8-1.2) APTT (24.9-33.3) secs Sodium 140 (135-145) mmol/L Potassium 3.5 (3.5-5.0) mmol/L Chloride 110 (101-111) mmol/L Carbon Dioxide 22 (21-32) mmol/L Anion Gap 8.0 (6-13) BUN 49 H (6-20) mg/dL Creatinine 0.8 (0.6-1.2) mg/dL Estimated GFR (MDRD) 96 (>89) Glucose 112 H (70-100) mg/dL Calcium 7.9 L (8.5-10.3) mg/dL Total Bilirubin 0.5 (0.2-1.0) mg/dL AST 23 (10-42) IU/L ALT 31 (10-60) IU/L Alkaline Phosphatase 35 L (42-121) IU/L Troponin I < 0.04 (<0.49) ng/mL B-Natriuretic Peptide (5-100) pg/mL Total Protein 5.6 L (6.7-8.2) g/dL Albumin 3.0 L (3.2-5.5) g/dL Globulin 2.6 (2.1-4.2) g/dL Albumin/Globulin Ratio 1.2 (1.0-2.2) Lipase (22-51) U/L TSH 2.64 (0.34-5.60) uIU/mL Blood Type Antibody Screen 04/04/18 04/04/18 04/03/18 Range/Units 04:35 04:35 21:37 WBC 5.5 (4.8-10.8) x10^3/uL RBC 3.34 L (4.70-6.10) 10^6/uL Hgb 10.3 L (14.0-18.0) g/dL Hct 30.6 L (42.0-52.0) % MCV 91.6 (80.0-94.0) fL MCH 30.7 (27.0-31.0) pg MCHC 33.5 (32.0-36.0) g/dL RDW 14.5 (12.0-15.0) % Plt Count 214 (130-450) 10^3/uL MPV 7.0 L (7.4-11.4) fL Neut # (Auto) 3.2 (1.5-6.6) 10^3/uL Lymph # (Auto) 1.4 L (1.5-3.5) 10^3/uL [place] # (Auto) 0.6 (0.0-1.0) 10^3/uL Eos # (Auto) 0.3 (0.0-0.7) 10^3/uL Baso # (Auto) 0.0 (0.0-0.1) 10^3/uL Absolute Nucleated RBC 0.00 x10^3/uL Nucleated RBC % 0.0 /100WBC PT 12.4 (9.9-12.6) secs INR 1.1 (0.8-1.2) APTT (24.9-33.3) secs Sodium (135-145) mmol/L Potassium (3.5-5.0) mmol/L Chloride (101-111) mmol/L Carbon Dioxide (21-32) mmol/L Anion Gap (6-13) BUN (6-20) mg/dL Creatinine (0.6-1.2) mg/dL Estimated GFR (MDRD) (>89) Glucose (70-100) mg/dL Calcium (8.5-10.3) mg/dL Total Bilirubin (0.2-1.0) mg/dL AST (10-42) IU/L ALT (10-60) IU/L Alkaline Phosphatase (42-121) IU/L Troponin I (<0.49) ng/mL B-Natriuretic Peptide (5-100) pg/mL Total Protein (6.7-8.2) g/dL Albumin (3.2-5.5) g/dL Globulin (2.1-4.2) g/dL Albumin/Globulin Ratio (1.0-2.2) Lipase (22-51) U/L TSH (0.34-5.60) uIU/mL Blood Type O POSITIVE Antibody Screen NEGATIVE 04/03/18 04/03/18 04/03/18 Range/Units 21:37 21:37 21:37 WBC (4.8-10.8) x10^3/uL RBC (4.70-6.10) 10^6/uL Hgb (14.0-18.0) g/dL Hct (42.0-52.0) % MCV (80.0-94.0) fL MCH (27.0-31.0) pg MCHC (32.0-36.0) g/dL RDW (12.0-15.0) % Plt Count (130-450) 10^3/uL MPV (7.4-11.4) fL Neut # (Auto) (1.5-6.6) 10^3/uL Lymph # (Auto) (1.5-3.5) 10^3/uL [place] # (Auto) (0.0-1.0) 10^3/uL Eos # (Auto) (0.0-0.7) 10^3/uL Baso # (Auto) (0.0-0.1) 10^3/uL Absolute Nucleated RBC x10^3/uL Nucleated RBC % /100WBC PT (9.9-12.6) secs INR (0.8-1.2) APTT (24.9-33.3) secs Sodium 140 (135-145) mmol/L Potassium 3.8 (3.5-5.0) mmol/L Chloride 105 (101-111) mmol/L Carbon Dioxide 24 (21-32) mmol/L Anion Gap 11.0 (6-13) BUN 51 H (6-20) mg/dL Creatinine 1.1 (0.6-1.2) mg/dL Estimated GFR (MDRD) 66 L (>89) Glucose 121 H (70-100) mg/dL Calcium 8.8 (8.5-10.3) mg/dL Total Bilirubin 0.7 (0.2-1.0) mg/dL AST 29 (10-42) IU/L ALT 40 (10-60) IU/L Alkaline Phosphatase 50 (42-121) IU/L Troponin I < 0.04 (<0.49) ng/mL B-Natriuretic Peptide 22 (5-100) pg/mL Total Protein 6.9 (6.7-8.2) g/dL Albumin 3.8 (3.2-5.5) g/dL Globulin 3.1 (2.1-4.2) g/dL Albumin/Globulin Ratio 1.2 (1.0-2.2) Lipase 37 (22-51) U/L TSH (0.34-5.60) uIU/mL Blood Type Antibody Screen 04/03/18 04/03/18 Range/Units 21:37 21:37 WBC 8.9 (4.8-10.8) x10^3/uL RBC 4.21 L (4.70-6.10) 10^6/uL Hgb 12.7 L (14.0-18.0) g/dL Hct 37.5 L (42.0-52.0) % MCV 89.1 (80.0-94.0) fL MCH 30.2 (27.0-31.0) pg MCHC 33.8 (32.0-36.0) g/dL RDW 14.0 (12.0-15.0) % Plt Count 314 (130-450) 10^3/uL MPV 7.2 L (7.4-11.4) fL Neut # (Auto) 4.9 (1.5-6.6) 10^3/uL Lymph # (Auto) 2.7 (1.5-3.5) 10^3/uL [place] # (Auto) 0.9 (0.0-1.0) 10^3/uL Eos # (Auto) 0.4 (0.0-0.7) 10^3/uL Baso # (Auto) 0.1 (0.0-0.1) 10^3/uL Absolute Nucleated RBC 0.01 x10^3/uL Nucleated RBC % 0.1 /100WBC PT 11.5 (9.9-12.6) secs INR 1.0 (0.8-1.2) APTT 27.4 (24.9-33.3) secs Sodium (135-145) mmol/L Potassium (3.5-5.0) mmol/L Chloride (101-111) mmol/L Carbon Dioxide (21-32) mmol/L Anion Gap (6-13) BUN (6-20) mg/dL Creatinine (0.6-1.2) mg/dL Estimated GFR (MDRD) (>89) Glucose (70-100) mg/dL Calcium (8.5-10.3) mg/dL Total Bilirubin (0.2-1.0) mg/dL AST (10-42) IU/L ALT (10-60) IU/L Alkaline Phosphatase (42-121) IU/L Troponin I (<0.49) ng/mL B-Natriuretic Peptide (5-100) pg/mL Total Protein (6.7-8.2) g/dL Albumin (3.2-5.5) g/dL Globulin (2.1-4.2) g/dL Albumin/Globulin Ratio (1.0-2.2) Lipase (22-51) U/L TSH (0.34-5.60) uIU/mL Blood Type Antibody Screen ABX Reporting Has patient been on IV antibiotics over the past 48 hours?: No Assessment/Plan - Problem List (1) GI bleed Impression: Patient presented to the emergency department with black stools. Patient has a history of a GI bleed 5-6 years ago which he states was due Aleve. Patient states he has not been on Aleve since but has been taking meloxicam for his osteoarthritis. The patient is also on Plavix, aspirin and cilostazol for peripheral vascular disease and recent angioplasty. According to the patient's vascular surgeon the patient has been told to continue Plavix for 3 months. The patient was previously a smoker but quit 1-1/2 months ago. The patient appears to have an upper GI bleed which is likely secondary to medications including Plavix, aspirin, cilostazol and meloxicam. The patient's hemoglobin was found to be 15>12.7>10.3 this am. The patient was also borderline hypotensive on presentation with significant tachycardia. The patient so far is only had one black tarry bowel movement. With IVF his BP is now nml @ 114/76 Plan: 2 large-bore IVs Hold meloxicam, aspirin and cilostazol Discussed with patient's vascular surgeon about also holding Plavix Type and cross Continue to monitor H&H every 6 IV Protonix twice daily Surgery consult for EGD. Dr. Rendon states he will do EGD tomorrow because of platelet inhibition and relative increased risk of bleeding. Since patient is hemodynamically stable he can be done tomorrow and doesn't urgently/emergently need to be done today. N.p.o. can be changed to po until midnight tonight. IV fluids Qualifiers: GI bleed type/associated pathology: melena Qualified Code(s): K92.1 - Melena (2) Atrial fibrillation with RVR Conclusion/Plan: On presentation to the emergency department the patient was in SVT with a heart rate in the 170s. The patient has history of atrial fibrillation and once heart rate was slow the patient was found to be in atrial fibrillation. The patient was given a dose of IV diltiazem with which the patient's heart rate did improve down to the low 100s. The patient was previously on Xarelto but this was stopped about 9 months ago by his quantitative researcher in [place]. The patient's chads 2 score is 1. Patient symptoms over the last week and a half of shortness of breath and lightheadedness are likely due to to him having episodes of A. fib with RVR. Plan: Restart the patient's home doses of p.o. metoprolol and diltiazem Monitor on telemetry Echocardiogram: Preliminary echo report shows left ventricular ejection fraction of 55-60%. Diastolic function is indeterminate. No regional wall motion abnormality. Left atrial volume index is normal. No significant valvular heart disease. Titrate patient's oral medications for rate control of atrial fibrillation IV diltiazem as needed Serial troponins x3, so far second one is <0.04 and to get 3rd in few hours. Hold off on any anticoagulation given the patient's ongoing GI bleed Hold aspirin given the patient's ongoing GI bleed. TSH is 2.64 (3) Status post peripheral artery angioplasty Conclusion/Plan: Patient has history of peripheral vascular disease and just underwent an angioplasty 1-1/2 months ago at [facility] in [place]. The patient cannot remember the name of his vascular surgeon. He was told however that he needs to continue Plavix for 3 months. The patient was also placed on cilostazol. Plan: We will need to discuss with the patient's vascular surgeon the importance of continuing Plavix with ongoing GI bleed. For now we will hold the patient's cilostazol and Plavix until we have further discussion with his vascular surgeon. We will need to discuss risk versus benefit given the patient just had recent angioplasty and would be at risk for possible atherosclerosis and restenosis. (4) Hypertension Conclusion/Plan: Patient has a history of hypertension but on presentation to the emergency department the patient pressure was borderline low. This could have been secondary to ongoing GI bleed or due to his rapid A. fib. Patient's blood pressure did improve after his A. fib rate was improved. The patient will be continued on his rate control medications of diltiazem and metoprolol. We will continue to monitor his blood pressure and titrate medications as needed. Today no change in meds planned unless blood pressure goes up Qualifiers: Hypertension type: essential hypertension Qualified Code(s): I10 - Essential (primary) hypertension (5) Osteoarthritis Conclusion/Plan: Patient has osteoarthritis of his spine as well as his knees. The patient is status post bilateral knee replacement. Patient currently takes meloxicam chronically for control of pain. The patient currently is having a GI bleed therefore meloxicam will be held as it is an NSAID and could have been 1 of the causes for this GI bleed. The patient instead will be given Tylenol and oxycodone as needed for his pain. Qualifiers: Osteoarthritis location: unspecified site (6) COPD (chronic obstructive pulmonary disease) Conclusion/Plan: Patient has a history of COPD and uses rescue inhalers and Symbicort at home. While the patient is hospitalized here he will be placed on budesonide twice d aily and formoterol twice daily. He will also be placed on duo nebs as needed. Currently the patient does not appear to be in exacerbation although he does have some wheezing on examination. Patient is not hypoxic. Patient shortness of breath was likely due to his A. fib RVR and not related to his COPD. Qualifiers: COPD type: chronic bronchitis
[2018-04-04] MEDS ORDERED: diltiaZEM CD 180 MG CAPSULE PO SCH (09:00)
[2018-04-04] MEDS: BUDESONIDE 0.5 MG/2 ML NEB INH SCH ×2 (09:18→20:14)
[2018-04-04] MEDS: FORMOTEROL FUMARATE NEB 20 MCG/2 ML INH SCH ×2 (09:18→20:14)
[2018-04-04 11:11] LABS: BASOPHILS % (AUTO) 0.9 %; EOSINOPHILS # (AUTO) 0.3 10^3/uL (0.0-0.7); EOSINOPHILS % (AUTO) 5.3 %; HGB - HEMOGLOBIN 10.2 g/dL (14.0-18.0); LYMPHOCYTES # (AUTO) 1.2 10^3/uL (1.5-3.5); LYMPHOCYTES % (AUTO) 24.6 %; MEAN CORPUSCULAR HEMOGLOBIN 30.8 pg (27.0-31.0); MEAN CORPUSCULAR HGB CONC 34.5 g/dL (32.0-36.0); MEAN CORPUSCULAR VOLUME 89.3 fL (80.0-94.0); MONOCYTES # (AUTO) 0.6 10^3/uL (0.0-1.0); MONOCYTES % (AUTO) 11.2 %; NEUTROPHILS # (AUTO) 2.9 10^3/uL (1.5-6.6); PLT - PLATELET COUNT 204 10^3/uL (130-450); RED BLOOD COUNT 3.31 10^6/uL (4.70-6.10); RED CELL DISTRIBUTION WIDTH 14.3 % (12.0-15.0)
[2018-04-04 17:23] LABS: BASOPHILS % (AUTO) 0.8 %; EOSINOPHILS # (AUTO) 0.3 10^3/uL (0.0-0.7); EOSINOPHILS % (AUTO) 5.8 %; HGB - HEMOGLOBIN 10.5 g/dL (14.0-18.0); LYMPHOCYTES # (AUTO) 1.7 10^3/uL (1.5-3.5); LYMPHOCYTES % (AUTO) 31.1 %; MEAN CORPUSCULAR HGB CONC 34.8 g/dL (32.0-36.0); MEAN CORPUSCULAR VOLUME 89.1 fL (80.0-94.0); MEAN PLATELET VOLUME 6.9 fL (7.4-11.4); MONOCYTES # (AUTO) 0.6 10^3/uL (0.0-1.0); MONOCYTES % (AUTO) 11.3 %; NEUTROPHILS # (AUTO) 2.9 10^3/uL (1.5-6.6); PLT - PLATELET COUNT 235 10^3/uL (130-450); RED BLOOD COUNT 3.38 10^6/uL (4.70-6.10); RED CELL DISTRIBUTION WIDTH 14.5 % (12.0-15.0); WHITE BLOOD COUNT 5.6 x10^3/uL (4.8-10.8)
[2018-04-04] MEDS: SODIUM CHLORIDE FLUSH 0.9% 10 ML SYRINGE IVP PRN (20:50)
[2018-04-04 23:00] LABS: BASOPHILS % (AUTO) 0.9 %; EOSINOPHILS # (AUTO) 0.3 10^3/uL (0.0-0.7); EOSINOPHILS % (AUTO) 6.2 %; HGB - HEMOGLOBIN 9.1 g/dL (14.0-18.0); LYMPHOCYTES # (AUTO) 1.5 10^3/uL (1.5-3.5); MEAN CORPUSCULAR HEMOGLOBIN 30.8 pg (27.0-31.0); MEAN CORPUSCULAR HGB CONC 34.8 g/dL (32.0-36.0); MEAN CORPUSCULAR VOLUME 88.3 fL (80.0-94.0); MEAN PLATELET VOLUME 6.8 fL (7.4-11.4); MONOCYTES # (AUTO) 0.5 10^3/uL (0.0-1.0); MONOCYTES % (AUTO) 10.6 %; NEUTROPHILS # (AUTO) 2.2 10^3/uL (1.5-6.6); NEUTROPHILS % (AUTO) 49.3 %; PLT - PLATELET COUNT 192 10^3/uL (130-450); RED BLOOD COUNT 2.97 10^6/uL (4.70-6.10); RED CELL DISTRIBUTION WIDTH 14.6 % (12.0-15.0); WHITE BLOOD COUNT 4.5 x10^3/uL (4.8-10.8)
[2018-04-05] MEDS: SODIUM CHLORIDE 0.9% 1,000 ML IV SCH ×2 (01:43→11:56)
[2018-04-05 05:14] LABS: BASOPHILS % (AUTO) 0.5 %; EOSINOPHILS # (AUTO) 0.2 10^3/uL (0.0-0.7); EOSINOPHILS % (AUTO) 5.5 %; HGB - HEMOGLOBIN 9.2 g/dL (14.0-18.0); LYMPHOCYTES # (AUTO) 1.4 10^3/uL (1.5-3.5); LYMPHOCYTES % (AUTO) 32.3 %; MEAN CORPUSCULAR HEMOGLOBIN 30.5 pg (27.0-31.0); MEAN CORPUSCULAR HGB CONC 34.1 g/dL (32.0-36.0); MEAN CORPUSCULAR VOLUME 89.5 fL (80.0-94.0); MEAN PLATELET VOLUME 7.1 fL (7.4-11.4); MONOCYTES # (AUTO) 0.5 10^3/uL (0.0-1.0); NEUTROPHILS # (AUTO) 2.2 10^3/uL (1.5-6.6); NEUTROPHILS % (AUTO) 50.7 %; PLT - PLATELET COUNT 184 10^3/uL (130-450); RED BLOOD COUNT 3.02 10^6/uL (4.70-6.10); RED CELL DISTRIBUTION WIDTH 14.5 % (12.0-15.0); WHITE BLOOD COUNT 4.3 x10^3/uL (4.8-10.8)
[2018-04-05 05:21] LABS: ALBUMIN 3.1 g/dL (3.2-5.5); ALBUMIN/GLOBULIN RATIO 1.3 (1.0-2.2); BILIRUBIN,TOTAL 0.5 mg/dL (0.2-1.0); CALCIUM 8.1 mg/dL (8.5-10.3); CREATININE 0.8 mg/dL (0.6-1.2); TOTAL PROTEIN 5.5 g/dL (6.7-8.2)
[2018-04-05] MEDS ORDERED: LIDO GARGLE 30 ML BOTTLE ONE (06:48)
[2018-04-05] MEDS: FORMOTEROL FUMARATE NEB 20 MCG/2 ML INH SCH (07:45)
[2018-04-05] MEDS: BUDESONIDE 0.5 MG/2 ML NEB INH SCH (07:45)
[2018-04-05] MEDS: PANTOPRAZOLE 40 MG VIAL IVP SCH ×2 (08:35→20:28)
[2018-04-05] MEDS: SODIUM CHLORIDE FLUSH 0.9% 10 ML SYRINGE IVP SCH ×4 (08:35→23:35)
[2018-04-05] MEDS: POLYETHYLENE GLYCOL 3350 17 GM PACKET PO SCH (08:37)
[2018-04-05] MEDS: METOPROLOL TARTRATE 25 MG TABLET PO SCH ×2 (08:37→20:27)
--- NOTE | 2018-04-05 08:37 | PROVIDER PROGRESS NOTE ---
Assessment/Plan - Problem List (1) GI bleed Qualifiers: GI bleed type/associated pathology: melena Qualified Code(s): K92.1 - Melena Assessment/Plan: Clinically stable with no evidence of further active bleeding, despite drop in H/H, which suggests equilibration. Pt may have been having occult gi bleeding prior to this bleeding episode to account for the significant anemia. Plan: EGD this morning. He will need a colonoscopy if this is neg. - Current Meds Current Meds: Current Medications Generic Name Dose Route Start Last Admin Trade Name Freq PRN Reason Stop Dose Admin Diltiazem HCl 60 mg 04/04/18 02:00 04/05/18 06:17 Cardizem PO 60 mg Q6HR [facility]ANC[facility] Administration Sodium Chloride 1,000 mls @ 100 mls/hr 04/03/18 23:45 04/05/18 05:05 Normal Saline 0.9% IV 100 mls/hr .Q10H [facility] Infusion Metoprolol Tartrate 50 mg 04/03/18 23:45 04/04/18 20:49 Lopressor PO 50 mg BID FRANCIS Administration Pantoprazole Sodium 40 mg 04/04/18 09:00 04/05/18 08:35 Protonix IVP 40 mg BID FRANCIS Administration Polyethylene Glycol 17 gm 04/04/18 09:00 04/04/18 07:28 Miralax PO Not Given DAILY FRANCIS Sodium Chloride 10 ml 04/03/18 23:08 04/04/18 20:50 Normal Saline Flush 0.9% IVP 10 ml PRN PRN Administration NEEDED PER PROVIDER ORDERS Sodium Chloride 10 ml 04/04/18 01:00 04/05/18 08:35 Normal Saline Flush 0.9% IVP 10 ml 0100,[id number],1700 FRANCIS Administration - Lab Result Fish Bone Diagrams: 04/05/18 04:30 04/05/18 04:30 - Additional Planning Condition/Complexity: Stable Plan Discussed with:: Patient Time Spent: 15-30 minutes Additional Planning Notes: Pt will need colonoscopy if EGD is negative. Subjective - Subjective Patient Reports: Resting Comfortably, No Complaints (denies abd pain, N/V, or passage of stool since admission) Objective Vital Signs: Vital Signs - 24 hr 04/04/18 04/04/18 04/04/18 09:19 09:24 14:27 Temperature 36.4 C L 36.4 C L Heart Rate 75 75 Heart Rate [ 82 Brachial] Respiratory 18 18 18 Rate Blood Pressure Blood Pressure 103/59 L [Right Brachial artery] O2 Saturation 98 100 04/04/18 04/04/18 04/04/18 16:11 18:54 20:15 Temperature 36.6 C Heart Rate 76 Heart Rate [ 75 Brachial] Respiratory 17 16 Rate Blood Pressure 130/64 Blood Pressure 126/64 [Right Brachial artery] O2 Saturation 100 04/04/18 04/04/18 04/04/18 20:39 20:49 23:40 Temperature Heart Rate Heart Rate [ 78 Brachial] Respiratory Rate Blood Pressure 140/82 H 118/63 Blood Pressure 140/62 H [Right Brachial artery] O2 Saturation 04/04/18 04/05/18 04/05/18 23:41 04:35 06:17 Temperature 36.8 C 36.4 C L Heart Rate Heart Rate [ 64 65 Brachial] Respiratory 17 17 Rate Blood Pressure 112/62 Blood Pressure 118/63 110/60 [Right Brachial artery] O2 Saturation 99 97 04/05/18 07:45 Temperature Heart Rate 70 Heart Rate [ Brachial] Respiratory 16 Rate Blood Pressure Blood Pressure [Right Brachial artery] O2 Saturation Oxygen O2 Source Room air I&O (Last 24 Hrs): Intake and Output Totals x24h 04/03/18 04/04/18 04/05/18 23:59 23:59 23:59 Intake Total 1000 3421.667 1336.667 Balance 1000 3421.667 1336.667 General: Alert, Oriented x3, Cooperative Abdomen: Soft, No tenderness, No hepatospenomegaly, No masses, Other (obese) - Results Results: Laboratory Results WBC 4.3 x10^3/uL (4.8-10.8) L 04/05/18 04:30 RBC 3.02 10^6/uL (4.70-6.10) L 04/05/18 04:30 Hgb 9.2 g/dL (14.0-18.0) L 04/05/18 04:30 Hct 27.0 % (42.0-52.0) L 04/05/18 04:30 MCV 89.5 fL (80.0-94.0) 04/05/18 04:30 MCH 30.5 pg (27.0-31.0) 04/05/18 04:30 MCHC 34.1 g/dL (32.0-36.0) 04/05/18 04:30 RDW 14.5 % (12.0-15.0) 04/05/18 04:30 Plt Count 184 10^3/uL (130-450) 04/05/18 04:30 MPV 7.1 fL (7.4-11.4) L 04/05/18 04:30 Neut # (Auto) 2.2 10^3/uL (1.5-6.6) 04/05/18 04:30 Lymph # (Auto) 1.4 10^3/uL (1.5-3.5) L 04/05/18 04:30 Ogle # (Auto) 0.5 10^3/uL (0.0-1.0) 04/05/18 04:30 Eos # (Auto) 0.2 10^3/uL (0.0-0.7) 04/05/18 04:30 Baso # (Auto) 0.0 10^3/uL (0.0-0.1) 04/05/18 04:30 Absolute Nucleated RBC 0.01 x10^3/uL 04/05/18 04:30 Nucleated RBC % 0.1 /100WBC 04/05/18 04:30 PT 12.4 secs (9.9-12.6) 04/04/18 04:35 INR 1.1 (0.8-1.2) 04/04/18 04:35 APTT 27.4 secs (24.9-33.3) 04/03/18 21:37 Sodium 141 mmol/L (135-145) 04/05/18 04:30 Potassium 3.6 mmol/L (3.5-5.0) 04/05/18 04:30 Chloride 112 mmol/L (101-111) H 04/05/18 04:30 Carbon Dioxide 24 mmol/L (21-32) 04/05/18 04:30 Anion Gap 5.0 (6-13) L 04/05/18 04:30 BUN 24 mg/dL (6-20) H 04/05/18 04:30 Creatinine 0.8 mg/dL (0.6-1.2) 04/05/18 04:30 Estimated GFR (MDRD) 96 (>89) 04/05/18 04:30 Glucose 109 mg/dL (70-100) H 04/05/18 04:30 Calcium 8.1 mg/dL (8.5-10.3) L 04/05/18 04:30 Total Bilirubin 0.5 mg/dL (0.2-1.0) 04/05/18 04:30 AST 25 IU/L (10-42) 04/05/18 04:30 ALT 31 IU/L (10-60) 04/05/18 04:30 Alkaline Phosphatase 38 IU/L (42-121) L 04/05/18 04:30 Troponin I < 0.04 ng/mL (<0.49) 04/04/18 11:03 B-Natriuretic Peptide 22 pg/mL (5-100) 04/03/18 21:37 Total Protein 5.5 g/dL (6.7-8.2) L 04/05/18 04:30 Albumin 3.1 g/dL (3.2-5.5) L 04/05/18 04:30 Globulin 2.4 g/dL (2.1-4.2) 04/05/18 04:30 Albumin/Globulin Ratio 1.3 (1.0-2.2) 04/05/18 04:30 Lipase 37 U/L (22-51) 04/03/18 21:37 TSH 2.64 uIU/mL (0.34-5.60) 04/04/18 04:35 Blood Type O POSITIVE 04/03/18 21:37 Antibody Screen NEGATIVE 04/03/18 21:37 - Procedures Procedures: Procedures ESOPHAGOGASTRODUODENOSCOPY [EGD] W/CLOSED BIOPSY (09/08/13) EXCIS KNEE SEMILUN CARTL (10/16/14) ABX Reporting Has patient been on IV antibiotics over the past 48 hours?: No
--- NOTE | 2018-04-05 09:29 | ANESTHESIA ---
Pre-Anesthesia VS, & Labs - Diagnosis Diagnosis GI bleed/melena. Likely UGI source including PUD , gastritis, H. pylori, dieulafoy lesion, doubt neoplasm, varices, lower gi source; likely triggered by combination of NSAIDs and triple agent antiplatelet therapy. Currently hemodynamically stable with no signs of continued active bleeding. - Procedure esophagogastroduodenoscopy Vital Signs: Temp Pulse Resp BP Pulse Ox 36.6 C 60 16 110/60 99 04/05/18 08:38 04/05/18 08:38 04/05/18 08:38 04/05/18 08:38 04/05/18 08:38 Height 5 ft 10 in Weight (kg) 111 kg Body Mass Index 35.1 - NPO >8 hours - Lab Results Current Lab Results: Laboratory Tests 04/05/18 04:30: Sodium 141, Potassium 3.6, Chloride 112 H, Carbon Dioxide 24, Anion Gap 5.0 L, BUN 24 H, Creatinine 0.8, Estimated GFR (MDRD) 96, Glucose 109 H, Calcium 8.1 L, Total Bilirubin 0.5, AST 25, ALT 31, Alkaline Phosphatase 38 L , Total Protein 5.5 L, Albumin 3.1 L, Globulin 2.4, Albumin/Globulin Ratio 1.3 04/05/18 04:30: WBC 4.3 L, RBC 3.02 L, Hgb 9.2 L, Hct 27.0 L, MCV 89.5, MCH 30.5, MCHC 34.1, RDW 14.5, Plt Count 184, MPV 7.1 L, Neut # (Auto) 2.2, Lymph # (Auto) 1.4 L, Moore # (Auto) 0.5, Eos # (Auto) 0.2, Baso # (Auto) 0.0, Absolute Nucleated RBC 0.01, Nucleated RBC % 0.1 04/04/18 22:50: WBC 4.5 L, RBC 2.97 L, Hgb 9.1 L, Hct 26.2 L, MCV 88.3, MCH 30.8, MCHC 34.8, RDW 14.6, Plt Count 192, MPV 6.8 L, Neut # (Auto) 2.2, Lymph # (Auto) 1.5, Moore # (Auto) 0.5, Eos # (Auto) 0.3, Baso # (Auto) 0.0, Absolute Nucleated RBC 0.00, Nucleated RBC % 0.1 04/04/18 17:15: WBC 5.6, RBC 3.38 L, Hgb 10.5 L, Hct 30.1 L, MCV 89.1, MCH 31.0, MCHC 34.8, RDW 14.5, Plt Count 235, MPV 6.9 L, Neut # (Auto) 2.9, Lymph # (Auto) 1.7, Moore # (Auto) 0.6, Eos # (Auto) 0.3, Baso # (Auto) 0.0, Absolute Nucleated RBC 0.00, Nucleated RBC % 0.1 04/04/18 11:03: Troponin I < 0.04 04/04/18 11:03: WBC 5.0, RBC 3.31 L, Hgb 10.2 L, Hct 29.5 L, MCV 89.3, MCH 30.8, MCHC 34.5, RDW 14.3, Plt Count 204, MPV 7.0 L, Neut # (Auto) 2.9, Lymph # (Auto) 1.2 L, Moore # (Auto) 0.6, Eos # (Auto) 0.3, Baso # (Auto) 0.0, Absolute Nucleated RBC 0.00, Nucleated RBC % 0.0 04/04/18 04:35: Troponin I < 0.04 04/04/18 04:35: TSH 2.64 04/04/18 04:35: Sodium 140, Potassium 3.5, Chloride 110, Carbon Dioxide 22, Anion Gap 8.0, BUN 49 H, Creatinine 0.8, Estimated GFR (MDRD) 96, Glucose 112 H, Calcium 7.9 L, Total Bilirubin 0.5, AST 23, ALT 31, Alkaline Phosphatase 35 L, Total Protein 5.6 L, Albumin 3.0 L, Globulin 2.6, Albumin/Globulin Ratio 1.2 04/04/18 04:35: PT 12.4, INR 1.1 04/04/18 04:35: WBC 5.5, RBC 3.34 L, Hgb 10.3 L, Hct 30.6 L, MCV 91.6, MCH 30.7, MCHC 33.5, RDW 14.5, Plt Count 214, MPV 7.0 L, Neut # (Auto) 3.2, Lymph # (Auto) 1.4 L, Moore # (Auto) 0.6, Eos # (Auto) 0.3, Baso # (Auto) 0.0, Absolute Nucleated RBC 0.00, Nucleated RBC % 0.0 04/03/18 21:37: Blood Type O POSITIVE, Antibody Screen NEGATIVE 04/03/18 21:37: B-Natriuretic Peptide 22 04/03/18 21:37: Troponin I < 0.04 04/03/18 21:37: Sodium 140, Potassium 3.8, Chloride 105, Carbon Dioxide 24, Anion Gap 11.0, BUN 51 H, Creatinine 1.1, Estimated GFR (MDRD) 66 L, Glucose 121 H, Calcium 8.8, Total Bilirubin 0.7, AST 29, ALT 40, Alkaline Phosphatase 50, Total Protein 6.9, Albumin 3.8, Globulin 3.1, Albumin/Globulin Ratio 1.2, Lipase 37 04/03/18 21:37: PT 11.5, INR 1.0, APTT 27.4 04/03/18 21:37: WBC 8.9, RBC 4.21 L, Hgb 12.7 L, Hct 37.5 L, MCV 89.1, MCH 30.2, MCHC 33.8, RDW 14.0, Plt Count 314, MPV 7.2 L, Neut # (Auto) 4.9, Lymph # (Auto) 2.7, Moore # (Auto) 0.9, Eos # (Auto) 0.4, Baso # (Auto) 0.1, Absolute Nucleated RBC 0.01, Nucleated RBC % 0.1 Fish Bones: 04/05/18 04:30 04/05/18 04:30 Home Medications and Allergies Home Medications: Ambulatory Orders Ascorbic Acid [Vitamin C] 1,000 mg PO DAILY 04/04/18 Aspirin [Aspirin EC] 81 mg PO DAILY 04/04/18 Clopidogrel [Plavix] 75 mg PO DAILY 04/04/18 Cyanocobalamin (Vitamin B-12) [Vitamin B-12] 1,000 mcg PO DAILY 04/04/18 Losartan/Hydrochlorothiazide [Losartan-Hctz 100-25 mg Tab] 1 tab PO DAILY 04/04/18 Magnesium Oxide [Magnesium] 400 mg PO DAILY 04/04/18 Multivitamin [Theragran] 1 tab PO DAILY 04/04/18 Active Medications Acetaminophen (Tylenol) 650 mg PO Q4HR PRN PRN Reason: Pain 1 to 4 Albuterol/Ipratropium (Duoneb) 3 ml INH Q4HR PRN PRN Reason: Wheezing Diltiazem HCl (Cardizem) 60 mg PO Q6HR [facility] Last Admin: 04/05/18 06:17 Dose: 60 mg Sodium Chloride (Normal Saline 0.9%) 1,000 mls @ 100 mls/hr IV .Q10H [facility] Last Infusion: 04/05/18 05:05 Dose: 100 mls/hr Metoprolol Tartrate (Lopressor) 50 mg PO BID [facility] Last Admin: 04/05/18 08:37 Dose: Not Given Ondansetron HCl (Zofran Inj) 4 mg IVP Q6HR PRN PRN Reason: Nausea / Vomiting Oxycodone HCl (Roxicodone) 5 mg PO Q4HR PRN PRN Reason: Pain 5 to 7 Pantoprazole Sodium (Protonix) 40 mg IVP BID [facility] Last Admin: 04/05/18 08:35 Dose: 40 mg Polyethylene Glycol (Miralax) 17 gm PO DAILY [facility] Last Admin: 04/05/18 08:37 Dose: Not Given Prochlorperazine Edisylate (Compazine Inj) 10 mg IVP Q6HR PRN PRN Reason: Nausea / Vomiting Promethazine HCl (Phenergan Inj) 25 mg IM Q6HR PRN PRN Reason: Nausea / Vomiting Sodium Chloride (Normal Saline Flush 0.9%) 10 ml IVP PRN PRN PRN Reason: NEEDED PER PROVIDER ORDERS Last Admin: 04/04/18 20:50 Dose: 10 ml Sodium Chloride (Normal Saline Flush 0.9%) 10 ml IVP 0100,0900,1700 [facility] Last Admin: 04/05/18 08:35 Dose: 10 ml Zolpidem Tartrate (Ambien) 5 mg PO QPM PRN PRN Reason: Insomnia Meloxicam 15 mg PO DAILY 10/09/14 Albuterol Sulf [Ventolin Hfa Inhaler] 2 puffs INH Q4H PRN 02/11/17 Ascorbic Acid [Vitamin C] 1,000 mg PO DAILY 04/04/18 Aspirin [Aspirin EC] 81 mg PO DAILY 04/04/18 Clopidogrel [Plavix] 75 mg PO DAILY 04/04/18 Cyanocobalamin (Vitamin B-12) [Vitamin B-12] 1,000 mcg PO DAILY 04/04/18 Losartan/Hydrochlorothiazide [Losartan-Hctz 100-25 mg Tab] 1 tab PO DAILY 04/04/18 Magnesium Oxide [Magnesium] 400 mg PO DAILY 04/04/18 Multivitamin [Theragran] 1 tab PO DAILY 04/04/18 Allergies/Adverse Reactions: Allergies Allergy/AdvReac Type Severity Reaction Status Date / Time fortino Allergy Severe Syncope Verified 02/15/18 14:48 Anes History & Medical History - Anesthetic History Anesthesia Complications: reports: No previous complications Family history of Anesthesia Complications: Denies Family history of Malignant Hyperthermia: Denies - Medical History Cardiovascular: reports: Hypertension, High cholesterol, Atrial fibrillation Pulmonary: reports: COPD, Other Gastrointestinal: reports: GI bleed, Hemorrhoids. denies: None, Ulcers, Colon polyps, Chronic diarrhea, Chronic constipation, Hepatitis Urinary: reports: None Musculoskeletal: reports: Osteoarthritis Endocrine/Autoimmune: reports: None Blood Disorders: reports: None Skin: reports: None Smoking Status: Current every day smoker (quit 3 months ago) - Surgical History General: Colonoscopy, EGD, Other (inguinal hernia repair) Eyes Ears Nose Throat (EENT): Tonsil/Adenoidectomy Cardiothoracic: Angioplasty (right femoral) Orthopedic: Arthroscopic surgery Exam Dental: Partials Lower, Other (caps) Mouth Openin Fingerbreadth Neck Mobility: Normal Mallampati classification: III Thyromental Distance: 4-6 cm Respiratory: Lungs clear, Normal breath sounds, No respiratory distress, No accessory muscle use Cardiovascular: Regular rate, Normal S1, Normal S2, No murmurs Mental/Cognitive Status: Alert/Oriented X3, Normal for patient Cognitive Status: Within normal limits Plan Anesthesia Type: MAC Consent for Procedure(s) Verified and Reviewed: Yes Code Status: Attempt Resuscitation ASA classification: 3-Severe systemic disease Is this case an emergency?: No
[2018-04-05] MEDS ORDERED: LACTATED RINGERS 1,000 ML IV ONE ×2 (10:07→10:08)
[2018-04-05] MEDS ORDERED: PROPOFOL 200 MG/20 ML VIAL IVP ONE (10:31)
[2018-04-05] MEDS ORDERED: LIDOCAINE-MPF 2% 5 ML VIAL IM ONE (10:31)
[2018-04-05 11:36] LABS: BASOPHILS % (AUTO) 0.8 %; EOSINOPHILS # (AUTO) 0.2 10^3/uL (0.0-0.7); EOSINOPHILS % (AUTO) 5.4 %; LYMPHOCYTES # (AUTO) 1.3 10^3/uL (1.5-3.5); MEAN CORPUSCULAR HGB CONC 34.8 g/dL (32.0-36.0); MEAN CORPUSCULAR VOLUME 89.1 fL (80.0-94.0); MEAN PLATELET VOLUME 6.7 fL (7.4-11.4); MONOCYTES # (AUTO) 0.4 10^3/uL (0.0-1.0); MONOCYTES % (AUTO) 8.8 %; NEUTROPHILS # (AUTO) 2.6 10^3/uL (1.5-6.6); PLT - PLATELET COUNT 199 10^3/uL (130-450); RED BLOOD COUNT 3.23 10^6/uL (4.70-6.10); RED CELL DISTRIBUTION WIDTH 14.5 % (12.0-15.0); WHITE BLOOD COUNT 4.5 x10^3/uL (4.8-10.8)
--- NOTE | 2018-04-05 12:35 | PROVIDER PROGRESS NOTE ---
Subjective - Prog Note Date Prog Note Date: 04/05/18 Prog Note Time: 13:27 - Subjective Pt reports feeling: Improved Subjective: He is walking in the hallways with his IV pole. Hungry as all get out and wants to eat. I gave him the results of the EGD. I explained to him that he has 2 ulcers, most likely nonsteroidal induced. He can no longer ever take meloxicam, aspirin, Aleve, ibuprofen, Naprosyn, etc. etc. Dr. Rendon would like the patient to receive a total of 48 hours of IV proton pump inhibitor. He does not necessarily feel the patient needs Carafate. After a total of 48 hours, patient can go home. That will be tomorrow morning. Current Medications - Current Medications Current Medications: Active Medications Acetaminophen (Tylenol) 650 mg PO Q4HR PRN PRN Reason: Pain 1 to 4 Albuterol/Ipratropium (Duoneb) 3 ml INH Q4HR PRN PRN Reason: Wheezing Diltiazem HCl (Cardizem) 60 mg PO Q6HR [facility] Last Admin: 04/05/18 11:54 Dose: 60 mg Metoprolol Tartrate (Lopressor) 50 mg PO BID [facility] Last Admin: 04/05/18 08:37 Dose: Not Given Ondansetron HCl (Zofran Inj) 4 mg IVP Q6HR PRN PRN Reason: Nausea / Vomiting Oxycodone HCl (Roxicodone) 5 mg PO Q4HR PRN PRN Reason: Pain 5 to 7 Pantoprazole Sodium (Protonix) 40 mg IVP BID [facility] Stop: 04/05/18 21:01 Last Admin: 04/05/18 08:35 Dose: 40 mg Pantoprazole Sodium (Protonix) 40 mg PO QDAC [facility] Polyethylene Glycol (Miralax) 17 gm PO DAILY [facility] Last Admin: 04/05/18 08:37 Dose: Not Given Prochlorperazine Edisylate (Compazine Inj) 10 mg IVP Q6HR PRN PRN Reason: Nausea / Vomiting Promethazine HCl (Phenergan Inj) 25 mg IM Q6HR PRN PRN Reason: Nausea / Vomiting Sodium Chloride (Normal Saline Flush 0.9%) 10 ml IVP PRN PRN PRN Reason: NEEDED PER PROVIDER ORDERS Last Admin: 04/04/18 20:50 Dose: 10 ml Sodium Chloride (Normal Saline Flush 0.9%) 10 ml IVP 0100,0900,1700 FRANC[facility] Last Admin: 04/05/18 08:35 Dose: 10 ml Zolpidem Tartrate (Ambien) 5 mg PO QPM PRN PRN Reason: Insomnia Meloxicam 15 mg PO DAILY 10/09/14 Albuterol Sulf [Ventolin Hfa Inhaler] 2 puffs INH Q4H PRN 02/11/17 Ascorbic Acid [Vitamin C] 1,000 mg PO DAILY 04/04/18 Aspirin [Aspirin EC] 81 mg PO DAILY 04/04/18 Clopidogrel [Plavix] 75 mg PO DAILY 04/04/18 Cyanocobalamin (Vitamin B-12) [Vitamin B-12] 1,000 mcg PO DAILY 04/04/18 Losartan/Hydrochlorothiazide [Losartan-Hctz 100-25 mg Tab] 1 tab PO DAILY 04/04/18 Magnesium Oxide [Magnesium] 400 mg PO DAILY 04/04/18 Multivitamin [Theragran] 1 tab PO DAILY 04/04/18 Objective - Vital Signs/Intake & Output Reviewed Vital Signs: Yes Vital Signs: Vital Signs x48h Temp Pulse Pulse Resp BP BP Pulse Ox 04/05/18 11:45 36.2 C L 65 16 117/57 L 98 04/05/18 10:57 36.4 C L 65 16 118/67 96 04/05/18 10:34 63 12 109/54 L 100 04/05/18 10:28 36.2 C L 66 20 107/56 L 97 04/05/18 08:38 36.6 C 60 16 110/60 99 04/05/18 08:37 114/60 04/05/18 07:45 70 16 04/05/18 06:17 112/62 04/05/18 04:35 36.4 C L 65 17 110/60 97 Intake & Output: Intake & Output 04/02/18 04/03/18 04/04/18 04/05/18 23:59 23:59 23:59 23:59 Intake Total 1000 3421.667 1999.000 Balance 1000 3421.667 1999.000 - Objective General Appearance: positive: No acute distress, Alert Eyes Bilateral: positive: PERRL, EOMI ENT: positive: Pharynx nml Neck: positive: No JVD. negative: Stiff neck, Carotid bruit Respiratory: positive: Chest non-tender. negative: Wheezes, Rales, Rhonchi Cardiovascular: positive: Irregularly irregular. negative: Tachycardia, Bradycardia, Gallop/S4, Friction rub Abdomen: positive: Non-tender, No organomegaly, Nml bowel sounds, No distention. 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 No ataxia. No dizziness. No lightheadedness.) - Lab Results Fish Bones: 04/05/18 11:30 04/05/18 04:30 Other Labs: Lab Results x24hrs 04/05/18 04/05/18 04/05/18 Range/Units 11:30 04:30 04:30 WBC 4.5 L 4.3 L (4.8-10.8) x10^3/uL RBC 3.23 L 3.02 L (4.70-6.10) 10^6/uL Hgb 10.0 L 9.2 L (14.0-18.0) g/dL Hct 28.8 L 27.0 L (42.0-52.0) % MCV 89.1 89.5 (80.0-94.0) fL MCH 31.0 30.5 (27.0-31.0) pg MCHC 34.8 34.1 (32.0-36.0) g/dL RDW 14.5 14.5 (12.0-15.0) % Plt Count 199 184 (130-450) 10^3/uL MPV 6.7 L 7.1 L (7.4-11.4) fL Neut # (Auto) 2.6 2.2 (1.5-6.6) 10^3/uL Lymph # (Auto) 1.3 L 1.4 L (1.5-3.5) 10^3/uL [place] # (Auto) 0.4 0.5 (0.0-1.0) 10^3/uL Eos # (Auto) 0.2 0.2 (0.0-0.7) 10^3/uL Baso # (Auto) 0.0 0.0 (0.0-0.1) 10^3/uL Absolute Nucleated RBC 0.00 0.01 x10^3/uL Nucleated RBC % 0.0 0.1 /100WBC Sodium 141 (135-145) mmol/L Potassium 3.6 (3.5-5.0) mmol/L Chloride 112 H (101-111) mmol/L Carbon Dioxide 24 (21-32) mmol/L Anion Gap 5.0 L (6-13) BUN 24 H (6-20) mg/dL Creatinine 0.8 (0.6-1.2) mg/dL Estimated GFR (MDRD) 96 (>89) Glucose 109 H (70-100) mg/dL Calcium 8.1 L (8.5-10.3) mg/dL Total Bilirubin 0.5 (0.2-1.0) mg/dL AST 25 (10-42) IU/L ALT 31 (10-60) IU/L Alkaline Phosphatase 38 L (42-121) IU/L Total Protein 5.5 L (6.7-8.2) g/dL Albumin 3.1 L (3.2-5.5) g/dL Globulin 2.4 (2.1-4.2) g/dL Albumin/Globulin Ratio 1.3 (1.0-2.2) 04/04/18 04/04/18 Range/Units 22:50 17:15 WBC 4.5 L 5.6 (4.8-10.8) x10^3/uL RBC 2.97 L 3.38 L (4.70-6.10) 10^6/uL Hgb 9.1 L 10.5 L (14.0-18.0) g/dL Hct 26.2 L 30.1 L (42.0-52.0) % MCV 88.3 89.1 (80.0-94.0) fL MCH 30.8 31.0 (27.0-31.0) pg MCHC 34.8 34.8 (32.0-36.0) g/dL RDW 14.6 14.5 (12.0-15.0) % Plt Count 192 235 (130-450) 10^3/uL MPV 6.8 L 6.9 L (7.4-11.4) fL Neut # (Auto) 2.2 2.9 (1.5-6.6) 10^3/uL Lymph # (Auto) 1.5 1.7 (1.5-3.5) 10^3/uL [place] # (Auto) 0.5 0.6 (0.0-1.0) 10^3/uL Eos # (Auto) 0.3 0.3 (0.0-0.7) 10^3/uL Baso # (Auto) 0.0 0.0 (0.0-0.1) 10^3/uL Absolute Nucleated RBC 0.00 0.00 x10^3/uL Nucleated RBC % 0.1 0.1 /100WBC Sodium (135-145) mmol/L Potassium (3.5-5.0) mmol/L Chloride (101-111) mmol/L Carbon Dioxide (21-32) mmol/L Anion Gap (6-13) BUN (6-20) mg/dL Creatinine (0.6-1.2) mg/dL Estimated GFR (MDRD) (>89) Glucose (70-100) mg/dL Calcium (8.5-10.3) mg/dL Total Bilirubin (0.2-1.0) mg/dL AST (10-42) IU/L ALT (10-60) IU/L Alkaline Phosphatase (42-121) IU/L Total Protein (6.7-8.2) g/dL Albumin (3.2-5.5) g/dL Globulin (2.1-4.2) g/dL Albumin/Globulin Ratio (1.0-2.2) ABX Reporting Has patient been on IV antibiotics over the past 48 hours?: No Assessment/Plan - Problem List (1) GI bleed Impression: Patient presented to the emergency department with black stools. Patient has a history of a GI bleed 5-6 years ago which he states was due Aleve. Patient states he has not been on Aleve since but has been taking meloxicam for his osteoarthritis. The patient is also on Plavix, aspirin and cilostazol for peripheral vascular disease and recent angioplasty. According to the patient's vascular surgeon the patient has been told to continue Plavix for 3 months. The patient was previously a smoker but quit 1-1/2 months ago. The patient appears to have an upper GI bleed which is likely secondary to medications including Plavix, aspirin, cilostazol and meloxicam. The patient's hemoglobin was found to be 15>12.7>10.3 this am. The patient was also borderline hypotensive on presentation with significant tachycardia. The patient so far is only had one black tarry bowel movement. With IVF his BP is nml but occasionally went down to 107 systolic in the computer scientist hours today. Plan: -2 large-bore IVs -Hold meloxicam, aspirin and cilostazol and resume cilostazol tomorrow. -Discussed with patient's vascular surgeon about also holding Plavix -Type and cross, so far no transfusion needed. -Continue to monitor H&H every 6 -Surgery consult for EGD. Dr. Rendon delayed EGD until today because of platelet inhibition and relative increased risk of bleeding. Since patient is hemodynamically stable he did well overnight. EGD today shows 2 ulcers, none actively bleeding but one has a small clot on it and the other is relatively large crescent shaped. Dr. Rendon would like IV Protonix twice daily to continue for a total of 48 hours. He needs dose #4 of 4 tonight. Then dc in the morning. -I let the patient know the plan. I also let him know he cannnot have ANY NSAID even a Milligan 2 inhibitor. -N.p.o. can be changed regular diet right now. -IV fluids will be stopped. Qualifiers: GI bleed type/associated pathology: melena Qualified Code(s): K92.1 - Kaya rosemary (2) Atrial fibrillation with RVR Conclusion/Plan: On presentation to the emergency department the patient was in SVT with a heart rate in the 170s. The patient has history of atrial fibrillation and once heart rate was slow the patient was found to be in atrial fibrillation. The patient was given a dose of IV diltiazem with which the patient's heart rate did improve down to the low 100s. The patient was previously on Xarelto but this was stopped about 9 months ago by his registered nurse cardiovascular icu in [place]. The patient's chads 2 score is 1. Patient symptoms over the last week and a half of shortness of breath and lightheadedness are likely due to to him having episodes of A. fib with RVR. Plan: Restarted the patient's home doses of p.o. metoprolol and diltiazem Monitor on telemetry and he has been sinus since yesterday. Echocardiogram: Preliminary echo report shows left ventricular ejection fraction of 55-60%. Diastolic function is indeterminate. No regional wall motion abnormality. Left atrial volume index is normal. No significant valvular heart disease. Titrate patient's oral medications for rate control of atrial fibrillation IV diltiazem as needed and not needed for >24 hours Serial troponins x3, and all 3 sets negative. resume anticoagulation tomorrow. Hold aspirin given the patient's ongoing GI bleed. He cannot resume it. TSH is 2.64 (3) Status post peripheral artery angioplasty Conclusion/Plan: Patient has history of peripheral vascular disease and just underwent an angioplasty 1-1/2 months ago at [facility] in [place]. The patient cannot remember the name of his vascular surgeon. He was told however that he needs to continue Plavix for 3 months. The patient was also placed on cilostazol. Plan: We will need to discuss with the patient's vascular surgeon the importance of continuing Plavix with ongoing GI bleed. For now we will hold the patient's cilostazol and Plavix until we have further discussion with his vascular surgeon. We will need to discuss risk versus benefit given the patient just had recent angioplasty and would be at risk for possible atherosclerosis and restenosis. (4) Hypertension Conclusion/Plan: Patient has a history of hypertension but on presentation to the emergency department the patient pressure was borderline low. This could have been secondary to ongoing GI bleed or due to his rapid A. fib. Patient's blood pressure did improve after his A. fib rate was improved. The patient will be continued on his rate control medications of diltiazem and metoprolol. We will continue to monitor his blood pressure and titrate medications as needed. Today no change in meds planned unless blood pressure goes up Qualifiers: Hypertension type: essential hypertension Qualified Code(s): I10 - Essential (primary) hypertension (5) Osteoarthritis Conclusion/Plan: Patient has osteoarthritis of his spine as well as his knees. The patient is status post bilateral knee replacement. Patient currently takes meloxicam chronically for control of pain. The patient currently is having a GI bleed therefore meloxicam will be held as it is an NSAID and could have been 1 of the causes for this GI bleed. The patient instead will be given Tylenol and oxycodone as needed for his pain. Again, warned not to take ANY NSAID including ASA. Qualifiers: Osteoarthritis location: unspecified site (6) COPD (chronic obstructive pulmonary disease) Conclusion/Plan: Patient has a history of COPD and uses rescue inhalers and Symbicort at home. While the patient is hospitalized here he was placed on budesonide twice daily and formoterol twice daily. He was also be placed on duo nebs as needed. Currently the patient does not appear to be in exacerbation although he does have some wheezing on examination. Patient is not hypoxic. Patient shortness of breath was likely due to his A. fib RVR and not related to his COPD. He then shared with us that he does not really take the long-acting bronchodilator at all. He has used his rescue inhaler only about 4 times in the last month. As such the Budesonide and formoterol will be stopped. DuoNeb will continue as needed. He does take Atrovent twice a day and I will order that as well. Qualifiers: COPD type: chronic bronchitis
[2018-04-05 17:10] LABS: BASOPHILS % (AUTO) 0.9 %; EOSINOPHILS # (AUTO) 0.2 10^3/uL (0.0-0.7); EOSINOPHILS % (AUTO) 4.7 %; HGB - HEMOGLOBIN 9.3 g/dL (14.0-18.0); LYMPHOCYTES # (AUTO) 1.4 10^3/uL (1.5-3.5); LYMPHOCYTES % (AUTO) 32.2 %; MEAN CORPUSCULAR HEMOGLOBIN 30.1 pg (27.0-31.0); MEAN CORPUSCULAR HGB CONC 33.6 g/dL (32.0-36.0); MEAN CORPUSCULAR VOLUME 89.4 fL (80.0-94.0); MEAN PLATELET VOLUME 6.8 fL (7.4-11.4); MONOCYTES # (AUTO) 0.5 10^3/uL (0.0-1.0); MONOCYTES % (AUTO) 10.8 %; NEUTROPHILS # (AUTO) 2.3 10^3/uL (1.5-6.6); NEUTROPHILS % (AUTO) 51.4 %; PLT - PLATELET COUNT 211 10^3/uL (130-450); RED BLOOD COUNT 3.09 10^6/uL (4.70-6.10); RED CELL DISTRIBUTION WIDTH 14.8 % (12.0-15.0); WHITE BLOOD COUNT 4.5 x10^3/uL (4.8-10.8)
[2018-04-05 23:03] LABS: BASOPHILS % (AUTO) 0.8 %; EOSINOPHILS # (AUTO) 0.2 10^3/uL (0.0-0.7); EOSINOPHILS % (AUTO) 4.4 %; HGB - HEMOGLOBIN 9.3 g/dL (14.0-18.0); LYMPHOCYTES # (AUTO) 1.7 10^3/uL (1.5-3.5); LYMPHOCYTES % (AUTO) 32.2 %; MEAN CORPUSCULAR HEMOGLOBIN 30.7 pg (27.0-31.0); MEAN CORPUSCULAR HGB CONC 34.3 g/dL (32.0-36.0); MEAN CORPUSCULAR VOLUME 89.3 fL (80.0-94.0); MEAN PLATELET VOLUME 6.9 fL (7.4-11.4); MONOCYTES # (AUTO) 0.5 10^3/uL (0.0-1.0); MONOCYTES % (AUTO) 10.3 %; NEUTROPHILS # (AUTO) 2.7 10^3/uL (1.5-6.6); NEUTROPHILS % (AUTO) 52.3 %; PLT - PLATELET COUNT 231 10^3/uL (130-450); RED BLOOD COUNT 3.02 10^6/uL (4.70-6.10); RED CELL DISTRIBUTION WIDTH 14.6 % (12.0-15.0); WHITE BLOOD COUNT 5.2 x10^3/uL (4.8-10.8)
[2018-04-05] MEDS: SODIUM CHLORIDE FLUSH 0.9% 10 ML SYRINGE IVP PRN (23:35)
[2018-04-06 05:13] LABS: BASOPHILS % (AUTO) 0.9 %; EOSINOPHILS # (AUTO) 0.2 10^3/uL (0.0-0.7); EOSINOPHILS % (AUTO) 4.9 %; HGB - HEMOGLOBIN 9.4 g/dL (14.0-18.0); LYMPHOCYTES # (AUTO) 1.4 10^3/uL (1.5-3.5); MEAN CORPUSCULAR HEMOGLOBIN 30.5 pg (27.0-31.0); MEAN CORPUSCULAR HGB CONC 34.1 g/dL (32.0-36.0); MEAN CORPUSCULAR VOLUME 89.5 fL (80.0-94.0); MONOCYTES # (AUTO) 0.4 10^3/uL (0.0-1.0); MONOCYTES % (AUTO) 8.1 %; NEUTROPHILS # (AUTO) 2.9 10^3/uL (1.5-6.6); NEUTROPHILS % (AUTO) 58.1 %; PLT - PLATELET COUNT 217 10^3/uL (130-450); RED BLOOD COUNT 3.08 10^6/uL (4.70-6.10); RED CELL DISTRIBUTION WIDTH 14.3 % (12.0-15.0)
[2018-04-06 05:21] LABS: ALBUMIN 3.2 g/dL (3.2-5.5); ALBUMIN/GLOBULIN RATIO 1.2 (1.0-2.2); BILIRUBIN,TOTAL 0.6 mg/dL (0.2-1.0); CALCIUM 8.3 mg/dL (8.5-10.3); CREATININE 0.9 mg/dL (0.6-1.2); TOTAL PROTEIN 5.8 g/dL (6.7-8.2)
[2018-04-06] MEDS ORDERED: PANTOPRAZOLE 40 MG TABLET PO SCH (07:00)
[2018-04-06 07:46] VITALS: BP 133/75
[2018-04-06] MEDS: POLYETHYLENE GLYCOL 3350 17 GM PACKET PO SCH (08:08)
[2018-04-06] MEDS: SODIUM CHLORIDE FLUSH 0.9% 10 ML SYRINGE IVP SCH (08:08)
[2018-04-06] MEDS: METOPROLOL TARTRATE 25 MG TABLET PO SCH (08:08)
--- NOTE | 2018-04-06 08:21 | Discharge Plan ---
Discharge Plan Disposition: 01 Home, Self Care Condition: Stable Prescriptions: diltiaZEM CD [Cardizem Cd] 120 mg PO DAILY #30 capsule Pantoprazole [Protonix] 40 mg PO BID #60 tablet Diet: Regular Activity Restrictions: Activity as Tolerated Shower Restrictions: No Driving Restrictions: No Additional Instructions or Follow Up instructions: You came to the hospital because of episodes of shortness of breath. They have been going on for a bit and when you then started having black tarry stools you put the 2 together and thought you are having a GI bleed. You were correct and that you were having a GI bleed from 2 ulcers that we found in your stomach we found with upper endoscopy. However, some of your shortness of breath was from atrial fibrillation with an uncontrolled heart rate. Your heart rhythm had 3 separate problems going on. One was the atrial fibrillation that was too fast. Then you sometimes would have 2-5-second pauses in your heart rate where your heart would not beat at all. Or sometimes your heart would beat with a narrow complex fast heart rate called supraventricular tachycardia. A normal amount of hemoglobin in a man is about 14 g. The lowest you got was 9.1 g. You did not need blood transfusion. From here on out, you cannot have any medicine that is a nonsteroidal. You cannot take aspirin, Aleve, ibuprofen, Naprosyn, meloxicam, Celebrex, Diflucan etc. The only medicine you can take for pain, fever, headache is Tylenol. You need to do Protonix twice a day. This will help heal the ulcers in your stomach. Dr. Rendon, the general surgeon, would like to see you in a couple of weeks in his office. He will then schedule you for a subsequent endoscopy to repeat the upper scope to make sure that these ulcers have healed. With regards to your heart rate, please see your technical recruiter in follow-up. Let them know that you were having what we call A. fib/SVT/sinus pause to 5 seconds. We did do an echocardiogram and found your heart to have an ejection fraction of 55%. The left atrium was normal in size. The right side of your heart was normal size and function. You had normal valve structure and function. This is important for the technical recruiter to know. Also see your primary care provider Uvaldo Lee in 1-2 weeks. We would like to have Dr. Lee check your hemoglobin and hematocrit to make sure that your anemia is slowly resolving. You might also want to consider taking an [id number] iron supplement such as a woman's vitamin once a day. Do this for 30-60 days to help your hemoglobin get back to normal. No Smoking: If you smoke, Please STOP! Call for help. Follow-up with: Uvaldo Lee MD [Primary Care Provider] -
--- NOTE | 2018-04-06 20:04 | DISCHARGE SUMMARY ---
Physician: Loulou Fajardo MD DATE OF ADMISSION: 04/03/2018 DATE OF DISCHARGE: 04/06/2018 DISCHARGE DIAGNOSES 1. Upper gastrointestinal bleed. 2. Peptic ulcer disease. 3. Atrial fibrillation with rapid ventricular response. 4. Status post peripheral artery angioplasty. 5. Hypertension. 6. Chronic obstructive pulmonary disease. DISCHARGE MEDICATIONS: 1. Ventolin HFA 2 puffs every 4 hours as needed 2. Vitamin C 1000 mg p.o. daily 3. Plavix 75 mg p.o. daily 4. Vitamin B12 1000 mcg p.o. daily 5. Losartan/hydrochlorothiazide 100/25 mg p.o. daily 6. Magnesium oxide 400 mg p.o. daily 7. Multivitamin 1 p.o. daily 8. Tylenol 650 mg p.o. every 4 hours as needed 9. Diltiazem CD 120 mg p.o. daily 10. Metoprolol tartrate 50 mg p.o. twice daily 11. Protonix 40 mg p.o. twice daily PRINCIPAL PROCEDURES 1. EGD done on 04/05/2018. He has a single nonbleeding irregular-shaped linear deep ulcer with heaped up edges on the posterior wall of the gastric body. Another small irregular shaped shallow ulcer with adherent clot was found in the gastric body. Pathology is pending at the time of discharge. 2. Echocardiogram shows mild concentric left ventricular hypertrophy with normal systolic function, ejection fraction 55%. Left atrium normal in size. Normal right ventricle size and function. Pulmonary pressure is normal. Normal valve structure and function. 3. JORGE L test negative at 24 hours. 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 He has a past medical history for hypertension, hyperlipidemia, COPD, chronic atrial fibrillation, osteoarthritis; on meloxicam and occasional Naprosyn, history of GI bleed secondary to Aleve, peripheral vascular disease, status post angioplasty; on aspirin and Plavix for that and Cilostazol. He started having palpitations and not feeling well a week and a half ago. He felt out of sorts and he would have symptoms off and on, where he would feel like he just ran 2 miles. He would feel out of breath and sometimes lightheaded. Sometimes he will check his pulse and it was irregular and fast, but then it would go down on its own. He denied chest pain, palpitations, edema, dyspnea on exertion. His symptoms were never really persistent, so he did not tell his doctor or seek help. He continued to do work. Today, when he went to work, he had lightheadedness and shortness of breath, and felt the urge to go to the bathroom. He had a bowel movement that was dark tarry stool and he realized it may be some of his shortness of breath and lightheadedness with a GI bleed, so he came to the Emergency Department. He quit smoking cigars a month and a half ago when he had his angioplasty of his left leg. He has no history of alcohol abuse. Due to his angioplasty, he is needed to be on Plavix and aspirin for 90 days. On presentation to the emergency room, he was tachycardic with a heart rate of 178 and he had a narrow complex tachycardia of supraventricular tachycardia. Borderline hypotension with a blood pressure of 109/48. No respiratory distress. He received a liter of IV fluid, IV of diltiazem and his heart rate went down to the 90s and low 100s. Blood pressure improved to 139/94. However, the patient was guaiac positive and hemoglobin was 12.7 from his baseline of 15. He was admitted to the hospital for control of his arrhythmia and history of atrial fibrillation as well as probable gastrointestinal bleed. He was started on IV Protonix. HOSPITAL COURSE: Serial hemoglobin and hematocrits were done on this patient. Hemoglobin drifted from 12.7 down to 10.5 and his lowest was 9.1. At discharge, his hemoglobin was 9.4. He did not require transfusion. EGD was done and above results found. General Surgery, Dr. Rendon, would like the patient to be on Protonix b.i.d. He wants to see him in approximately 2-3 weeks to then reschedule him for an endoscopy to make sure these ulcers have healed. The patient was told multiple times by me and Dr. Rendon that under no circumstances, he is to take any nonsteroidals including aspirin. No Aleve, diclofenac, Meloxicam, Celebrex, Ibuprofen, Naprosyn. He is to stay on proton pump inhibitors until he sees Dr. Rendon and after the endoscopy. If he has any recurrent bleeding with black tarry stools, to return to the emergency room. He was kept in the hospital 48 hours after his EGD to make sure that his risk of recurrent bleeding was monitored carefully. His atrial fibrillation with RVR, was initially difficult to control. This gentleman went from atrial fibrillation with rapid ventricular response to supraventricular tachycardia to sinus pauses and then cycled back again through all of these arrhythmias in the first 24 hours. He required diltiazem and metoprolol to control his rate. He finally stayed in sinus rhythm for the rest of his stay. Echocardiogram was done as above. It is recommended he follow up with Cardiology to make sure his arrhythmias are not something that need to be ablated. Unfortunately, he is not a candidate for traditional anticoagulation such as Eliquis because he is already on platelet inhibitors for his angioplasty, but once those stop, he should be reviewed for his atrial fibrillation and whether or not he needs anticoagulation. Blood pressure was initially low on presentation to the emergency room. Over the next 24 hours, blood pressure gradually came up to 110/60, then 131/65. By the day of discharge, he was 133/75. Medications did not need to be adjusted at discharge. He did have a history of chronic obstructive pulmonary disease, but there was no acute exacerbation. He had long-acting bronchodilators on his medication list, but he says that he no longer takes them and has not taken them over several months. He rarely needs a rescue inhaler and uses that maybe once or twice a month in the form of Ventolin. During his stay, he had no chronic obstructive pulmonary disease exacerbation. His medication list was adjusted to take off the long-acting bronchodilator since he does not take it. His new medications are metoprolol, Cardizem and Protonix. 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 I am also concerned about the sinus pause up to 5 seconds that we saw during his stay. He was asymptomatic with that. PHYSICAL EXAMINATION: VITAL SIGNS: On the day of discharge, temperature was 36.3, pulse 61, blood pressure 133/75, respirations 16 and unlabored. He is 100% on room air. GENERAL: He is walking in the hallways, making laughs, alert, cheerful. He has tolerated an advancing diet of normal food over the last 24 hours. He has had no further black tarry stools. LUNGS: He is stocky, short with a barrel chest that has clear lungs. HEART: Regular rate and rhythm. ABDOMEN: Slightly overweight, soft, nontender without organomegaly and no pedal edema. Greater than 30 minutes was spent in coordinating discharge. His primary care provider is Vee Garcia. cc: Vee Garcia DO TD: 04/06/2018 18:33 MTDD
== END 2018-04-06 09:00 | disposition home or self-care (01) ==
LOC: ED 21:28 → MS3 23:08
PROVIDERS: ADMIT Internal Medicine; ATTEND Specialist
PROC: 0DB68ZX Excision of Stomach, Via Natural or Artificial Opening Endoscopic, Diagnostic (ICD-10-PCS; principal; 2018-04-05 10:00)
DX: K25.4 Chronic or unspecified gastric ulcer with hemorrhage (principal); R88.8 Abnormal findings in other body fluids and substances; D62 Acute posthemorrhagic anemia; I47.1 Supraventricular tachycardia; I48.2 Chronic atrial fibrillation; I49.8 Other specified cardiac arrhythmias; I11.9 Hypertensive heart disease without heart failure; E78.5 Hyperlipidemia, unspecified; J44.9 Chronic obstructive pulmonary disease, unspecified; M47.9 Spondylosis, unspecified; K64.9 Unspecified hemorrhoids; I95.9 Hypotension, unspecified; I73.9 Peripheral vascular disease, unspecified; E66.3 Overweight; Z79.1 Long term (current) use of non-steroidal anti-inflammatories (NSAID); Z79.899 Other long term (current) drug therapy; Z79.02 Long term (current) use of antithrombotics/antiplatelets; Z87.891 Personal history of nicotine dependence; Z79.82 Long term (current) use of aspirin; Z68.35 Body mass index [BMI] 35.0-35.9, adult; Z96.653 Presence of artificial knee joint, bilateral; Z95.820 Peripheral vascular angioplasty status with implants and grafts; Z87.898 Personal history of other specified conditions
CPT/HCPCS: 36415; 43239; 80053; 83690; 83880; 84443; 84484; 85025; 85610; 85730; 86850; 86900; 86901; 87081; 93005; 93306; 94640; 96361; 96374; 96375; 96376; 99284; A9270; G0378; J7120; J7626

== ENCOUNTER 2018-04-12 15:01 | Outpatient (CLI) | payer OTHER, MEDICARE ==
[2018-04-12 18:54] LABS: BASOPHILS % (AUTO) 0.7 %; EOSINOPHILS # (AUTO) 0.2 10^3/uL (0.0-0.7); EOSINOPHILS % (AUTO) 2.9 %; HGB - HEMOGLOBIN 10.8 g/dL (14.0-18.0); LYMPHOCYTES # (AUTO) 1.3 10^3/uL (1.5-3.5); MEAN CORPUSCULAR HGB CONC 34.4 g/dL (32.0-36.0); MEAN CORPUSCULAR VOLUME 90.1 fL (80.0-94.0); MONOCYTES # (AUTO) 0.8 10^3/uL (0.0-1.0); MONOCYTES % (AUTO) 11.5 %; NEUTROPHILS # (AUTO) 4.4 10^3/uL (1.5-6.6); NEUTROPHILS % (AUTO) 65.9 %; PLT - PLATELET COUNT 355 10^3/uL (130-450); RED BLOOD COUNT 3.48 10^6/uL (4.70-6.10); RED CELL DISTRIBUTION WIDTH 15.1 % (12.0-15.0); WHITE BLOOD COUNT 6.6 x10^3/uL (4.8-10.8)
== END 2018-04-12 15:02 | disposition home or self-care (01) ==
LOC: LAB.WCP 15:01
PROVIDERS: ATTEND Family Medicine
DX: D64.9 Anemia, unspecified (principal)
CPT/HCPCS: 36415; 85025

== ENCOUNTER 2018-04-19 12:17 | Day surgery (SDC) | payer OTHER, MEDICARE ==
[2018-04-19] MEDS ORDERED: LACTATED RINGERS 1,000 ML IV ONE (13:09)
[2018-04-19] MEDS ORDERED: LIDO GARGLE 30 ML BOTTLE ONE (13:46)
[2018-04-19] MEDS ORDERED: fentaNYL 100 MCG/2 ML VIAL IVP ONE (14:14)
[2018-04-19] MEDS ORDERED: MIDAZOLAM 2 MG/2 ML VIAL IVP ONE (14:14)
[2018-04-19] MEDS ORDERED: LIDO GARGLE 30 ML BOTTLE PO ONE (14:24)
[2018-04-19 15:19] VITALS: BP 102/40
== END 2018-04-19 12:18 | disposition home or self-care (01) ==
LOC: SDS 12:17
PROVIDERS: ATTEND Internal Medicine Gastroenterology
PROC: 0DB68ZX Excision of Stomach, Via Natural or Artificial Opening Endoscopic, Diagnostic (ICD-10-PCS; principal; 2018-04-19 13:30)
DX: C85.19 Unspecified B-cell lymphoma, extranodal and solid organ sites (principal); I73.9 Peripheral vascular disease, unspecified; I48.91 Unspecified atrial fibrillation; I10 Essential (primary) hypertension; J44.9 Chronic obstructive pulmonary disease, unspecified; D64.9 Anemia, unspecified; G89.29 Other chronic pain; M54.5 Low back pain; Z79.891 Long term (current) use of opiate analgesic; Z87.11 Personal history of peptic ulcer disease
CPT/HCPCS: 43239; A9270; J7120

== ENCOUNTER 2018-06-19 01:15 | Emergency (ER) | payer OTHER, MEDICARE ==
--- NOTE | 2018-06-19 02:49 | ED Physician Documentation ---
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 denies: Chest pain / pressure Respiratory: denies: Dyspnea, Cough GI: denies: Abdominal Pain, Nausea, Vomiting, Hematemesis, Bloody / black stool Musculoskeletal: denies: Extremity pain, Extremity swelling Neurologic: denies: Generalized weakness Endocrine: denies: Easy bruising / bleeding Immunocompromised: denies: Immunocompromised PD PAST MEDICAL HISTORY - Past Medical History Cardiovascular: Hypertension, High cholesterol, Atrial fibrillation Respiratory: COPD, Other Endocrine/Autoimmune: None GI: GI bleed, Hemorrhoids : None HEENT: None Psych: None Musculoskeletal: Osteoarthritis Derm: None Other Past Medical History: non hodgkins lymphoma - Past Surgical History Past Surgical History: Yes General: Colonoscopy, EGD, Other Ortho: Arthroscopic surgery Cardiovascular: Angioplasty HEENT: Tonsil/Adenoidectomy - Present Medications Home Medications: Ambulatory Orders Medication Instructions Recorded Confirmed Albuterol Sulf [Ventolin Hfa 2 puffs INH Q4H PRN 02/11/17 06/11/18 Inhaler] Ascorbic Acid [Vitamin C] 1,000 mg PO DAILY 04/04/18 06/11/18 Cyanocobalamin (Vitamin B-12) 1,000 mcg PO DAILY 04/04/18 06/11/18 [Vitamin B-12] Losartan/Hydrochlorothiazide 1 tab PO DAILY 04/04/18 06/11/18 [Losartan-Hctz 100-25 mg Tab] Magnesium Oxide [Magnesium] 400 mg PO DAILY 04/04/18 06/11/18 Multivitamin [Theragran] 1 tab PO DAILY 04/04/18 06/11/18 Pantoprazole [Protonix] 40 mg PO BID #60 tablet 04/06/18 06/11/18 Lidocaine Patch 5% [Lidoderm Patch] 1 each TOP QPM 04/19/18 06/11/18 Saw Tiro 160 mg PO DAILY 04/19/18 06/11/18 Acetaminophen/Cod 300/30 [Tylenol 1 tab ORAL DAILY PRN 05/28/18 06/11/18 #3] Atorvastatin 40 40 mg ORAL DAILY 05/28/18 06/11/18 Cilostazol [Pletal] 100 mg PO BID 05/28/18 06/11/18 Metoprolol Succinate 1.5 tab ORAL DAILY 05/28/18 06/11/18 - Allergies Allergies/Adverse Reactions: Allergies Allergy/AdvReac Type Severity Reaction Status Date / Time fortino Allergy Severe Syncope Verified 06/19/18 01:29 - Social History Does the pt smoke?: Yes Smoking Status: Current every day smoker Does the pt drink ETOH?: No Does the pt have substance abuse?: No - Immunizations Immunizations are current?: Yes - POLST Patient has POLST: No POLST Status: Full Code PD ED PE NORMAL - Vitals Vital signs reviewed: Yes - HEENT HEENT: Atraumatic - Neck Neck: Supple, no meningeal sign - Cardiac Cardiac: RRR - Respiratory Respiratory: No respiratory distress, Clear bilaterally - Abdomen Abdomen: Non tender - Derm Derm: Normal color - Extremities Extremities: No deformity, No edema, No calf tenderness / cord Results - Vitals Vitals: Vital Signs - 24 hr 06/19/18 01:26 Temperature 36.4 C L Heart Rate 112 H Respiratory 17 Rate Blood Pressure 176/99 H O2 Saturation 96 Oxygen O2 Source Room air - EKG (time done) 0136 Rate: Rate (enter#) (100) Rhythm: NSR, Other (NSR with bigeminy) [place]: Normal Intervals: Normal [place] Ischemia: Normal ST segments - Tele (time rhythm occurred) 0230 Telemetry / rhythm strip: NSR - Labs Labs: Laboratory Tests 06/19/18 06/19/18 06/19/18 02:45 02:45 02:45 WBC 6.5 RBC 4.94 Hgb 13.8 L Hct 42.5 MCV 86.0 MCH 27.9 MCHC 32.4 RDW 15.1 H Plt Count 246 MPV 6.8 L Neut # (Auto) 3.9 Lymph # (Auto) 1.5 [place] # (Auto) 0.8 Eos # (Auto) 0.3 Baso # (Auto) 0.0 Absolute Nucleated RBC 0.00 Nucleated RBC % 0.1 Sodium 140 Potassium 3.5 Chloride 104 Carbon Dioxide 27 Anion Gap 9.0 BUN 16 Creatinine 1.0 Estimated GFR (MDRD) 74 L Glucose 109 H Calcium 8.6 Troponin I < 0.04 PD MEDICAL DECISION MAKING - ED course ED course: a fib [employer], hx same, resolved spont if labs nl plan to dc Departure - Departure Disposition: 01 Home, Self Care Clinical Impression: Paroxysmal atrial fibrillation Condition: Good Instructions: ED Afib Comments: Your labs are fine and your heart is back in a regular rhythm So I think it is safe for you t go home. Please continue your usual medications Return if worse in any way
[2018-06-19 02:51] LABS: BASOPHILS % (AUTO) 0.4 %; EOSINOPHILS # (AUTO) 0.3 10^3/uL (0.0-0.7); EOSINOPHILS % (AUTO) 4.3 %; HGB - HEMOGLOBIN 13.8 g/dL (14.0-18.0); LYMPHOCYTES # (AUTO) 1.5 10^3/uL (1.5-3.5); LYMPHOCYTES % (AUTO) 22.7 %; MEAN CORPUSCULAR HEMOGLOBIN 27.9 pg (27.0-31.0); MEAN CORPUSCULAR HGB CONC 32.4 g/dL (32.0-36.0); MEAN PLATELET VOLUME 6.8 fL (7.4-11.4); MONOCYTES # (AUTO) 0.8 10^3/uL (0.0-1.0); MONOCYTES % (AUTO) 12.4 %; NEUTROPHILS # (AUTO) 3.9 10^3/uL (1.5-6.6); NEUTROPHILS % (AUTO) 60.2 %; PLT - PLATELET COUNT 246 10^3/uL (130-450); RED BLOOD COUNT 4.94 10^6/uL (4.70-6.10); RED CELL DISTRIBUTION WIDTH 15.1 % (12.0-15.0); WHITE BLOOD COUNT 6.5 x10^3/uL (4.8-10.8)
[2018-06-19 02:59] LABS: CALCIUM 8.6 mg/dL (8.5-10.3)
[2018-06-19 03:29] VITALS: BP 123/76
== END 2018-06-19 03:45 | disposition home or self-care (01) ==
LOC: ED 01:15
DX: I48.0 Paroxysmal atrial fibrillation (principal); R00.0 Tachycardia, unspecified; R00.8 Other abnormalities of heart beat; I25.10 Atherosclerotic heart disease of native coronary artery without angina pectoris; Z98.61 Coronary angioplasty status; I10 Essential (primary) hypertension; E78.5 Hyperlipidemia, unspecified; C85.10 Unspecified B-cell lymphoma, unspecified site
CPT/HCPCS: 36415; 80048; 84484; 85025; 93005; 99283

== ENCOUNTER 2018-06-29 13:14 | Outpatient (CLI) | payer OTHER, MEDICARE ==
--- NOTE | 2018-06-29 16:20 | Ultrasound Report ---
Reason: THYROID NODULE- RT Procedure Date: 06/29/2018 Accession Number: [id number] / [id number] Procedure: US - Head or Neck Soft Tissue CPT Code: FULL RESULT: EXAM: THYROID ULTRASOUND EXAM DATE: 06/29/2018 01:26 PM. CLINICAL HISTORY: Thyroid nodule- right. COMPARISON: Chest with contrast 05/31/2018 3:16 PM. TECHNIQUE: Real time sonographic imaging of the thyroid was performed by the washing machine loader. Multiple packaging sales representative static images were saved for review. FINDINGS: THYROID GLAND: Right Lobe: 4.7 x 2.2 x 1.8 cm, volume 9.7 cc. Normal background echotexture. Right Lobe Nodules: There is a 1.2 x 1.2 x 0.9 cm cystic nodule with minimal questionable nodular component, low suspicion. Left Lobe: 4.6 x 1.5 x 1.2 cm, volume 4.3 cc. Normal background echotexture. Left Lobe Nodules: None. Isthmus: 0.4 cm AP. Isthmic Nodules: None. LYMPH NODES: No adenopathy demonstrated in the central or lateral compartment. OTHER: The supraclavicular soft tissue region which previously contained a lymph node measuring up to 1.4 cm was carefully interrogated by the radiologist. Today no lymph node adequate for tissue sampling is identified. IMPRESSION: The right thyroid nodule does not require tissue sampling. The supraclavicular soft tissue region which previously contained a lymph node measuring up to 1.4 cm was carefully interrogated with ultrasound by the radiologist. Today no lymph node adequate for tissue sampling is identified. Management recommendations are based on 2015 [place] [employer] Management Guidelines for Adult Patients with Thyroid Nodules and Differentiated Thyroid Cancer. RADIA
== END 2018-06-29 13:15 | disposition home or self-care (01) ==
LOC: DI 13:14
PROVIDERS: ATTEND Internal Medicine Hematology & Oncology
DX: C85.90 Non-Hodgkin lymphoma, unspecified, unspecified site (principal); E04.1 Nontoxic single thyroid nodule
CPT/HCPCS: 76536

== ENCOUNTER 2018-07-29 20:39 | Emergency (ER) | payer OTHER, MEDICARE ==
[2018-07-29 21:00] LABS: BASOPHILS % (AUTO) 0.9 %; EOSINOPHILS # (AUTO) 0.2 10^3/uL (0.0-0.7); HGB - HEMOGLOBIN 14.9 g/dL (14.0-18.0); LYMPHOCYTES # (AUTO) 0.5 10^3/uL (1.5-3.5); MEAN CORPUSCULAR HEMOGLOBIN 27.7 pg (27.0-31.0); MEAN CORPUSCULAR HGB CONC 33.4 g/dL (32.0-36.0); MEAN CORPUSCULAR VOLUME 82.9 fL (80.0-94.0); MEAN PLATELET VOLUME 7.1 fL (7.4-11.4); MONOCYTES # (AUTO) 0.6 10^3/uL (0.0-1.0); MONOCYTES % (AUTO) 13.9 %; NEUTROPHILS # (AUTO) 3.1 10^3/uL (1.5-6.6); NEUTROPHILS % (AUTO) 68.2 %; PLT - PLATELET COUNT 227 10^3/uL (130-450); RED BLOOD COUNT 5.38 10^6/uL (4.70-6.10); RED CELL DISTRIBUTION WIDTH 16.1 % (12.0-15.0); WHITE BLOOD COUNT 4.6 x10^3/uL (4.8-10.8)
[2018-07-29] MEDS ORDERED: diltiaZEM INJ 5 MG/ML VIAL IVP STA (21:02)
[2018-07-29 21:08] LABS: ALBUMIN 4.1 g/dL (3.2-5.5); ALBUMIN/GLOBULIN RATIO 1.2 (1.0-2.2); BILIRUBIN,TOTAL 0.2 mg/dL (0.2-1.0); CALCIUM 9.4 mg/dL (8.5-10.3); TOTAL PROTEIN 7.5 g/dL (6.7-8.2)
--- NOTE | 2018-07-29 21:27 | XRAY Report ---
Reason: Chest pain Procedure Date: 07/29/2018 Accession Number: [id number] / [id number] Procedure: XR - Chest 1 View X-Ray CPT Code: 71850 FULL RESULT: EXAM: CHEST RADIOGRAPHY EXAM DATE: 07/29/2018 09:06 PM. CLINICAL HISTORY: Chest pain. COMPARISON: Chest radiograph dated 01/01/2018. TECHNIQUE: 1 view. FINDINGS: Lungs/Pleura: No focal opacities evident. No pleural effusion. No pneumothorax. Mediastinum: Within exam limitations, the cardiomediastinal contour is normal. Other: None. IMPRESSION: No focal consolidation. RADIA
[2018-07-29] MEDS ORDERED: METOPROLOL TARTRATE 50 MG TABLET PO STA (22:26)
[2018-07-29] MEDS ORDERED: METOPROLOL 5 MG/5 ML VIAL IVP STA (22:59)
[2018-07-29] MEDS ORDERED: SODIUM CHLORIDE 0.9% 1,000 ML IV ONE (23:14)
[2018-07-29 23:53] VITALS: BP 126/89
--- NOTE | 2018-07-29 23:58 | ED Physician Documentation ---
PD HPI CHEST PAIN - Stated complaint Stated Complaint: FAST HEART RATE - Chief complaint Chief Complaint: Cardiac - History obtained from History obtained from: Patient - History of Present Illness Timing - onset: How many hours ago (3) Timing - onset during: Rest Timing - duration: Hours (3) Timing - details: Abrupt onset Pain level max: 0 Pain level now: 0 Quality: Other (Palpitations) Location: Substernal Radiation: No: Jaw, Neck, Back Improved by: No: Rest, Oxygen, Nitro Associated symptoms: Shortness of air. No: Diaphoresis, Nausea, Vomiting - Additional information Additional information: 68-year-old male with history of paroxysmal atrial fibrillation presents with rapid heart rate. Review of Systems Constitutional: reports: Reviewed and negative Eyes: reports: Reviewed and negative Ears: reports: Reviewed and negative Nose: reports: Reviewed and negative Throat: reports: Reviewed and negative Cardiac: reports: Reviewed and negative Respiratory: reports: Reviewed and negative GI: reports: Reviewed and negative : reports: Reviewed and negative Skin: reports: Reviewed and negative Musculoskeletal: reports: Reviewed and negative Neurologic: reports: Reviewed and negative Psychiatric: reports: Reviewed and negative Endocrine: reports: Reviewed and negative Immunocompromised: reports: Reviewed and negative PD PAST MEDICAL HISTORY - Past Medical History Cardiovascular: Hypertension, High cholesterol, Atrial fibrillation Respiratory: COPD, Other Endocrine/Autoimmune: None GI: GI bleed, Hemorrhoids : None HEENT: None Psych: None Musculoskeletal: Osteoarthritis Derm: None - Past Surgical History Past Surgical History: Yes General: Colonoscopy, EGD, Other Ortho: Arthroscopic surgery Cardiovascular: Angioplasty HEENT: Tonsil/Adenoidectomy - Present Medications Home Medications: Ambulatory Orders Medication Instructions Recorded Confirmed Albuterol Sulf [Ventolin Hfa 2 puffs INH Q4H PRN 02/11/17 07/29/18 Inhaler] Ascorbic Acid [Vitamin C] 1,000 mg PO DAILY 04/04/18 07/29/18 Cyanocobalamin (Vitamin B-12) 1,000 mcg PO DAILY 04/04/18 07/29/18 [Vitamin B-12] Losartan/Hydrochlorothiazide 1 tab PO DAILY 04/04/18 07/29/18 [Losartan-Hctz 100-25 mg Tab] Magnesium Oxide [Magnesium] 400 mg PO DAILY 04/04/18 07/29/18 Multivitamin [Theragran] 1 tab PO DAILY 04/04/18 07/29/18 Pantoprazole [Protonix] 40 mg PO BID #60 tablet 04/06/18 07/29/18 Lidocaine Patch 5% [Lidoderm Patch] 1 each TOP QPM 04/19/18 07/29/18 Saw [place] 160 mg PO DAILY 04/19/18 07/29/18 Acetaminophen/Cod 300/30 [Tylenol 1 tab ORAL DAILY PRN 05/28/18 07/29/18 #3] Atorvastatin 40 40 mg ORAL DAILY 05/28/18 07/29/18 Cilostazol [Pletal] 100 mg PO BID 05/28/18 07/29/18 Metoprolol Succinate 1.5 tab ORAL DAILY 05/28/18 07/29/18 - Allergies Allergies/Adverse Reactions: Allergies Allergy/AdvReac Type Severity Reaction Status Date / Time fortino Allergy Severe Syncope Verified 07/29/18 20:45 - Living Situation Living Situation: reports: With spouse/s.o. Living Arrangement: reports: At home - Social History Does the pt smoke?: No Smoking Status: Former smoker Does the pt drink ETOH?: No Does the pt have substance abuse?: No - Immunizations Immunizations are current?: Yes - POLST Patient has POLST: No POLST Status: Full Code PD ED PE NORMAL - Vitals Vital signs reviewed: Yes - General General: Alert and oriented X 3, No acute distress - HEENT HEENT: PERRL - Neck Neck: Supple, no meningeal sign - Cardiac Cardiac: RRR, No murmur - Respiratory Respiratory: Clear bilaterally - Abdomen Abdomen: Normal bowel sounds, Soft, Non tender, Non distended - Derm Derm: Warm and dry - Extremities Extremities: No deformity - Neuro Neuro: Alert and oriented X 3 - Psych Psych: Normal mood, Normal affect Results - Vitals Vitals: Vital Signs - 24 hr 07/29/18 07/29/18 07/29/18 20:43 20:46 21:17 Temperature 36.6 C Heart Rate 138 H 124 H 94 Heart Rate [ Sitting] Heart Rate [ Standing] Heart Rate [ Supine] Respiratory 15 13 16 Rate Blood Pressure 167/142 H 167/142 H 167/90 H Blood Pressure [Sitting] Blood Pressure [Standing] Blood Pressure [Supine] O2 Saturation 97 98 97 07/29/18 07/29/18 07/29/18 21:57 22:34 23:13 Temperature Heart Rate 94 94 Heart Rate [ 95 Sitting] Heart Rate [ 109 H Standing] Heart Rate [ 89 Supine] Respiratory 14 12 Rate Blood Pressure 134/72 H 135/96 H Blood Pressure 116/72 [Sitting] Blood Pressure 96/75 [Standing] Blood Pressure 120/72 [Supine] O2 Saturation 98 97 07/29/18 07/29/18 23:23 23:52 Temperature 36.5 C Heart Rate 91 96 Heart Rate [ Sitting] Heart Rate [ Standing] Heart Rate [ Supine] Respiratory 14 16 Rate Blood Pressure 106/65 126/89 H Blood Pressure [Sitting] Blood Pressure [Standing] Blood Pressure [Supine] O2 Saturation 98 97 Oxygen O2 Source Room air - EKG (time done) 2045 Rate: Rate (enter#) (126), Tachy Rhythm: Atrial fibrillation (RVR) [place]: Normal Intervals: Normal [place] QRS: Normal Ischemia: Normal ST segments. No: T wave inversion - Labs Labs: Laboratory Tests 07/29/18 07/29/18 07/29/18 20:47 20:47 20:47 WBC 4.6 L RBC 5.38 Hgb 14.9 Hct 44.6 MCV 82.9 MCH 27.7 MCHC 33.4 RDW 16.1 H Plt Count 227 MPV 7.1 L Neut # (Auto) 3.1 Lymph # (Auto) 0.5 L [place] # (Auto) 0.6 Eos # (Auto) 0.2 Baso # (Auto) 0.0 Absolute Nucleated RBC 0.00 Nucleated RBC % 0.0 D-Dimer Sodium 140 Potassium 3.6 Chloride 100 L Carbon Dioxide 28 Anion Gap 12.0 BUN 15 Creatinine 1.0 Estimated GFR (MDRD) 74 L Glucose 130 H Calcium 9.4 Total Bilirubin 0.2 AST 26 ALT 26 Alkaline Phosphatase 71 Troponin I < 0.04 B-Natriuretic Peptide Total Protein 7.5 Albumin 4.1 Globulin 3.4 Albumin/Globulin Ratio 1.2 Lipase 43 Influenza A (Rapid) Influenza B (Rapid) 07/29/18 07/29/18 07/29/18 20:47 20:47 21:08 WBC RBC Hgb Hct MCV MCH MCHC RDW Plt Count MPV Neut # (Auto) Lymph # (Auto) [place] # (Auto) Eos # (Auto) Baso # (Auto) Absolute Nucleated RBC Nucleated RBC % D-Dimer < 200.0 L Sodium Potassium Chloride Carbon Dioxide Anion Gap BUN Creatinine Estimated GFR (MDRD) Glucose Calcium Total Bilirubin AST ALT Alkaline Phosphatase Troponin I B-Natriuretic Peptide 57 Total Protein Albumin Globulin Albumin/Globulin Ratio Lipase Influenza A (Rapid) Negative Influenza B (Rapid) Negative PD MEDICAL DECISION MAKING - ED course Complexity details: reviewed results, re-evaluated patient, considered differential, d/w patient, d/w family ED course: 68-year-old male with history of paroxysmal atrial fibrillation presents in atrial fibrillation with rapid ventricular response. Orthostatic vitals were positive. Heart rate improved with 1 L IV fluids, IV diltiazem bolus, IV and p.o. metoprolol. D-dimer is negative with no clinical indication of pulmonary embolism. EKG shows A. fib and rapid ventricular response. Chest x-ray unremarkable. Patient feeling well at time of discharge. Departure - Departure Disposition: 01 Home, Self Care Clinical Impression: Palpitations, Tachycardia, Atrial fibrillation with rapid ventricular response Condition: Good Instructions: Atrial Fibrillation Dc, ED Chest Pain Atypical Unkn Cause Follow-Up: Vee Garcia MD [Primary Care Provider] - Comments: Follow-up with PCP within 24 hours. Return with worsening symptoms.
== END 2018-07-30 00:06 | disposition home or self-care (01) ==
LOC: ED 20:39
DX: R00.2 Palpitations (principal); R00.0 Tachycardia, unspecified; I48.91 Unspecified atrial fibrillation; I10 Essential (primary) hypertension; E78.00 Pure hypercholesterolemia, unspecified
CPT/HCPCS: 36415; 71045; 80053; 83690; 83880; 84484; 85025; 85379; 87275; 87276; 93005; 96374; 96375; 99284; A9270

== ENCOUNTER 2018-08-16 06:02 | Day surgery (SDC) | payer OTHER, MEDICARE ==
[2018-08-16] MEDS ORDERED: LACTATED RINGERS 1,000 ML IV ONE (06:35)
[2018-08-16] MEDS ORDERED: LIDO GARGLE 30 ML BOTTLE ONE (07:17)
[2018-08-16] MEDS ORDERED: fentaNYL 100 MCG/2 ML VIAL IVP ONE (07:23)
[2018-08-16] MEDS ORDERED: MIDAZOLAM 2 MG/2 ML VIAL IVP ONE (07:23)
[2018-08-16] MEDS ORDERED: LIDO GARGLE 30 ML BOTTLE TOP ONE (07:25)
[2018-08-16 08:22] VITALS: BP 132/85
== END 2018-08-16 06:03 | disposition home or self-care (01) ==
LOC: SDS 06:02
PROVIDERS: ATTEND Internal Medicine Gastroenterology
PROC: 0DB78ZX Excision of Stomach, Pylorus, Via Natural or Artificial Opening Endoscopic, Diagnostic (ICD-10-PCS; 2018-08-16)
PROC: 0DB68ZX Excision of Stomach, Via Natural or Artificial Opening Endoscopic, Diagnostic (ICD-10-PCS; principal; 2018-08-16 07:30)
DX: Z08 Encounter for follow-up examination after completed treatment for malignant neoplasm (principal); Z85.72 Personal history of non-Hodgkin lymphomas; K29.50 Unspecified chronic gastritis without bleeding; J44.9 Chronic obstructive pulmonary disease, unspecified; I48.91 Unspecified atrial fibrillation; E78.5 Hyperlipidemia, unspecified; I10 Essential (primary) hypertension; D64.9 Anemia, unspecified; M54.16 Radiculopathy, lumbar region; M17.0 Bilateral primary osteoarthritis of knee; I73.89 Other specified peripheral vascular diseases; Z79.891 Long term (current) use of opiate analgesic; Z79.02 Long term (current) use of antithrombotics/antiplatelets; Z79.51 Long term (current) use of inhaled steroids; Z87.891 Personal history of nicotine dependence
CPT/HCPCS: 43239; A9270; J7120

== ENCOUNTER 2018-10-02 09:53 | Outpatient (CLI) | payer OTHER, MEDICARE ==
[2018-10-02 10:46] LABS: CHOL/HDL RATIO 3.2 (<5.0); CHOLESTEROL 148 mg/dL; HDL CHOLESTEROL 46 mg/dL; LDL CHOLESTEROL,CALCULATED 89 mg/dL; LDL/HDL RATIO 1.9 (<3.6); VLDL CHOLESTEROL 13 mg/dL
== END 2018-10-02 09:54 | disposition home or self-care (01) ==
LOC: LAB 09:53
PROVIDERS: ATTEND Internal Medicine Cardiovascular Disease
DX: E78.5 Hyperlipidemia, unspecified (principal)
CPT/HCPCS: 36415; 80061; 83721

== ENCOUNTER 2018-11-30 04:00 | Emergency (ER) | payer OTHER, MEDICARE ==
--- NOTE | 2018-11-30 04:06 | ED Physician Documentation ---
History of Present Illness - Stated complaint Stated Complaint: IRREGULAR HR - History obtained from History obtained from: Patient - History of Present Illness Timing: Prior to arrival - Additonal information Additional information: Patient is a 68-year-old male with history of CAD, A. fib, hypertension, hyperlipidemia, COPD, GI bleed, lymphoma presenting with recurrence of atrial fibrillation. Patient reports that he has been compliant with all medications. Patient states that his motor coach driver gave him flecainide to use at home for episodes of afib but patient has not yet tried that medication tonight. Patient states that several days ago he felt an episode which resolved on its own. Patient then noted palpitations at about 8 PM last night approximately 8 hours ago that has been intermittent since that time. Patient reports a GERD-like sensation and mild pressure, but denies other chest pain or shortness of breath associated with these palpitations. Patient also denies lightheadedness, nausea, vomiting, or syncope. Patient denies any other new medications, alcohol, energy drinks or other inciting incident. Patient is anticoagulated on Eliquis. No other improving or worsening factors noted. Review of Systems Cardiac: reports: Chest pain / pressure, Palpitations Respiratory: denies: Dyspnea PD PAST MEDICAL HISTORY - Past Medical History Cardiovascular: Hypertension, High cholesterol, Atrial fibrillation Respiratory: COPD, Other Endocrine/Autoimmune: None GI: GI bleed, Hemorrhoids : None HEENT: None Psych: None Musculoskeletal: Osteoarthritis Derm: None - Past Surgical History Past Surgical History: Yes General: Colonoscopy, EGD, Other Ortho: Arthroscopic surgery Cardiovascular: Angioplasty HEENT: Tonsil/Adenoidectomy - Present Medications Home Medications: Ambulatory Orders Medication Instructions Recorded Confirmed Albuterol Sulf [Ventolin Hfa 2 puffs INH Q4H PRN 02/11/17 11/30/18 Inhaler] Ascorbic Acid [Vitamin C] 1,000 mg PO DAILY 04/04/18 11/30/18 Cyanocobalamin (Vitamin B-12) 1,000 mcg PO DAILY 04/04/18 11/30/18 [Vitamin B-12] Losartan/Hydrochlorothiazide 25 mg PO DAILY 04/04/18 11/30/18 [Losartan-Hctz 100-25 mg Tab] Magnesium Oxide [Magnesium] 400 mg PO DAILY 04/04/18 11/30/18 Multivitamin [Theragran] 1 tab PO DAILY 04/04/18 11/30/18 Saw [place] 160 mg PO DAILY 04/19/18 11/30/18 Atorvastatin 40 40 mg ORAL DAILY 05/28/18 11/30/18 Cilostazol [Pletal] 100 mg PO BID 05/28/18 11/30/18 Metoprolol Succinate 1.5 tab ORAL DAILY 05/28/18 11/30/18 Pantoprazole [Protonix] 40 mg PO DAILY 08/16/18 11/30/18 Apixaban [Eliquis] 5 mg PO DAILY 10/08/18 11/30/18 - Allergies Allergies/Adverse Reactions: Allergies Allergy/AdvReac Type Severity Reaction Status Date / Time fortino Allergy Severe Syncope Verified 11/30/18 04:07 - Social History Does the pt smoke?: No Smoking Status: Former smoker Does the pt drink ETOH?: No Does the pt have substance abuse?: No - Immunizations Immunizations are current?: Yes - POLST Patient has POLST: No POLST Status: Full Code PD ED PE NORMAL - Vitals Vital signs reviewed: Yes - General General: Alert and oriented X 3, No acute distress, Well developed/nourished - HEENT HEENT: Atraumatic, Moist mucous membranes - Cardiac Cardiac: No murmur. No: RRR (Irregular, tachycardic) - Respiratory Respiratory: No respiratory distress, Clear bilaterally - Abdomen Abdomen: Soft, Non tender, Non distended - Derm Derm: Normal color, Warm and dry, No rash - Extremities Extremities: No deformity, No tenderness to palpate, No edema - Neuro Neuro: Alert and oriented X 3, No motor deficit, No sensory deficit - Psych Psych: Normal mood, Normal affect Results - Vitals Vitals: Vital Signs - 24 hr 11/30/18 11/30/18 11/30/18 04:05 04:10 04:31 Temperature 36.7 C Heart Rate 106 H 105 H 77 Respiratory 16 10 L 12 Rate Blood Pressure 160/85 H 127/81 H O2 Saturation 98 98 98 11/30/18 06:01 Temperature Heart Rate 66 Respiratory 12 Rate Blood Pressure 120/69 O2 Saturation 97 Oxygen O2 Source Room air - EKG (time done) 0403 Rate: Rate (enter#) (159) Rhythm: Atrial fibrillation Intervals: Prolonged QT Ischemia: Other (PVC) 0448 Rate: Rate (enter#) (93) Rhythm: Atrial fibrillation Intervals: Prolonged QT Other comments: Other comments (PVC) - Labs Labs: Laboratory Tests 11/30/18 11/30/18 11/30/18 04:10 04:10 04:10 WBC 5.7 RBC 5.14 Hgb 15.2 Hct 44.1 MCV 85.9 MCH 29.5 MCHC 34.3 RDW 14.1 Plt Count 255 MPV 6.8 L Neut # (Auto) 4.0 Lymph # (Auto) 0.6 L [place] # (Auto) 0.8 Eos # (Auto) 0.2 Baso # (Auto) 0.1 Absolute Nucleated RBC 0.00 Nucleated RBC % 0.0 PT INR APTT Sodium 142 Potassium 3.7 Chloride 104 Carbon Dioxide 26 Anion Gap 12.0 BUN 18 Creatinine 1.1 Estimated GFR (MDRD) 66 L Glucose 120 H Calcium 9.2 Total Bilirubin 0.7 AST 27 ALT 38 Alkaline Phosphatase 74 Troponin I < 0.04 B-Natriuretic Peptide Total Protein 7.1 Albumin 3.8 Globulin 3.3 Albumin/Globulin Ratio 1.2 Lipase 38 11/30/18 11/30/18 04:10 04:10 WBC RBC Hgb Hct MCV MCH MCHC RDW Plt Count MPV Neut # (Auto) Lymph # (Auto) [place] # (Auto) Eos # (Auto) Baso # (Auto) Absolute Nucleated RBC Nucleated RBC % PT 13.4 H INR 1.2 APTT 32.9 Sodium Potassium Chloride Carbon Dioxide Anion Gap BUN Creatinine Estimated GFR (MDRD) Glucose Calcium Total Bilirubin AST ALT Alkaline Phosphatase Troponin I B-Natriuretic Peptide 33 Total Protein Albumin Globulin Albumin/Globulin Ratio Lipase PD MEDICAL DECISION MAKING - ED course Complexity details: reviewed old records, reviewed results, re-evaluated patient, considered differential, d/w patient, d/w family ED course: Patient has a history of paroxysmal atrial fibrillation and reports that today's symptoms are similar to previous. Patient reports the symptoms have been intermittent for several hours and occurred several days ago as well. Patient denies symptoms that would raise high suspicion for associated PE, ACS, myocardial infarction, unstable angina, CHF, but considered. Patient comfortable and started on IV fluids and received diltiazem 20 mg bolus. Prior to medication administration, EKG indicated atrial fibrillation with RVR and prolonged QTC. Following medication administration, patient's rate was controlled and remained controlled during the remainder of his ED stay. His QTC did prolong slightly more, which is likely due to medications, but also reviewed previous EKGs which reflect prolonged QTC as well. Patient also experienced occasional pauses, which he says has occurred in the past and his motor coach driver is aware of. Per patient's report, if these become more worrisome, his motor coach driver suggested placing a pacemaker. Patient continued to be monitored in the ED and screening lab work, as well as chest x-ray obtained. Screening lab work did not find evidence of elevation in BNP or troponin. Chest x-ray also unremarkable. Patient able to ambulate in ED without further complication. However, as patient stayed in the ED, it was noted that he continued to have significant pauses without change in rhythm and otherwise remained in atrial fibrillation with rate control. Patient himself then began to complain more of feeling these pauses and raising concerns about such. Contacted patient's cardiology team in [facility] and it was determined that patient can be transferred there for further evaluation and possible need for pacemaker placement. Patient amenable to this plan and to remain n.p.o. at this time. Departure - Departure Disposition: 02 Transfer Acute Care Hosp Clinical Impression: Atrial arrhythmia
[2018-11-30] MEDS ORDERED: diltiaZEM INJ 5 MG/ML VIAL IVP STA (04:18)
[2018-11-30] MEDS ORDERED: SODIUM CHLORIDE 0.9% 1,000 ML IV ONE (04:18)
[2018-11-30 04:20] LABS: BASOPHILS # (AUTO) 0.1 10^3/uL (0.0-0.1); BASOPHILS % (AUTO) 1.2 %; EOSINOPHILS # (AUTO) 0.2 10^3/uL (0.0-0.7); EOSINOPHILS % (AUTO) 4.3 %; HGB - HEMOGLOBIN 15.2 g/dL (14.0-18.0); LYMPHOCYTES # (AUTO) 0.6 10^3/uL (1.5-3.5); LYMPHOCYTES % (AUTO) 10.5 %; MEAN CORPUSCULAR HEMOGLOBIN 29.5 pg (27.0-31.0); MEAN CORPUSCULAR HGB CONC 34.3 g/dL (32.0-36.0); MEAN CORPUSCULAR VOLUME 85.9 fL (80.0-94.0); MEAN PLATELET VOLUME 6.8 fL (7.4-11.4); MONOCYTES # (AUTO) 0.8 10^3/uL (0.0-1.0); PLT - PLATELET COUNT 255 10^3/uL (130-450); RED BLOOD COUNT 5.14 10^6/uL (4.70-6.10); RED CELL DISTRIBUTION WIDTH 14.1 % (12.0-15.0); WHITE BLOOD COUNT 5.7 x10^3/uL (4.8-10.8)
[2018-11-30 04:30] LABS: INR 1.2 (0.8-1.2); PT - PROTHROMBIN TIME 13.4 secs (9.9-12.6)
[2018-11-30 04:31] LABS: ALBUMIN 3.8 g/dL (3.2-5.5); ALBUMIN/GLOBULIN RATIO 1.2 (1.0-2.2); BILIRUBIN,TOTAL 0.7 mg/dL (0.2-1.0); CALCIUM 9.2 mg/dL (8.5-10.3); CREATININE 1.1 mg/dL (0.6-1.2); TOTAL PROTEIN 7.1 g/dL (6.7-8.2)
[2018-11-30 04:39] LABS: PARTIAL THROMBOPLASTIN TIME 32.9 secs (24.9-33.3)
--- NOTE | 2018-11-30 04:47 | XRAY Report ---
Reason: chest pain Procedure Date: 11/30/2018 Accession Number: [id number] / [id number] Procedure: XR - Chest 1 View X-Ray CPT Code: 48167 FULL RESULT: EXAM: CHEST RADIOGRAPHY EXAM DATE: 11/30/2018 04:32 AM. CLINICAL HISTORY: Chest pain. COMPARISON: CHEST 1 VIEW 07/29/2018 8:56 PM CHEST W/ 05/31/2018 3:16 PM. TECHNIQUE: 1 view. FINDINGS: Lungs/Pleura: No focal opacities evident with exception of minimal left lung base scarring. No pleural effusion. No pneumothorax. Mediastinum: Within exam limitations, the cardiomediastinal contour is normal. Other: None. IMPRESSION: Negative single view chest. RADIA
[2018-11-30 09:41] VITALS: BP 140/89
== END 2018-11-30 09:55 | disposition short-term general hospital (02) ==
LOC: ED 04:00
DX: I48.91 Unspecified atrial fibrillation (principal); I49.3 Ventricular premature depolarization; I45.81 Long QT syndrome; Z79.01 Long term (current) use of anticoagulants; I25.10 Atherosclerotic heart disease of native coronary artery without angina pectoris; I10 Essential (primary) hypertension; E78.5 Hyperlipidemia, unspecified; J44.9 Chronic obstructive pulmonary disease, unspecified; Z87.891 Personal history of nicotine dependence; Z85.72 Personal history of non-Hodgkin lymphomas
CPT/HCPCS: 36415; 71045; 80053; 83690; 83880; 84484; 85025; 85610; 85730; 93005; 96361; 96374; 99284

== ENCOUNTER 2018-11-30 09:01 | Outpatient (CLI) | payer OTHER, MEDICARE | END 2018-11-30 09:02 | disposition short-term general hospital (02) | LOC: EMS 09:01 | PROVIDERS: ATTEND Surgery | DX: I48.91 Unspecified atrial fibrillation (principal); R42 Dizziness and giddiness | CPT/HCPCS: A0425; A0427 ==

== ENCOUNTER 2019-04-15 07:52 | Day surgery (SDC) | payer OTHER, MEDICARE ==
[2019-04-15] MEDS ORDERED: LACTATED RINGERS 1,000 ML IV ONE (08:19)
[2019-04-15] MEDS ORDERED: MIDAZOLAM 2 MG/2 ML VIAL IVP ONE (09:05)
[2019-04-15] MEDS ORDERED: fentaNYL 250 MCG/5 ML VIAL IVP ONE (09:05)
[2019-04-15 10:35] VITALS: BP 134/65
== END 2019-04-15 07:53 | disposition home or self-care (01) ==
LOC: SDS 07:52
PROVIDERS: ATTEND Internal Medicine Gastroenterology
PROC: 0DBP8ZZ Excision of Rectum, Via Natural or Artificial Opening Endoscopic (ICD-10-PCS; 2019-04-15)
PROC: 0DBN8ZZ Excision of Sigmoid Colon, Via Natural or Artificial Opening Endoscopic (ICD-10-PCS; 2019-04-15)
PROC: 0DBM8ZZ Excision of Descending Colon, Via Natural or Artificial Opening Endoscopic (ICD-10-PCS; principal; 2019-04-15 09:15)
DX: Z12.11 Encounter for screening for malignant neoplasm of colon (principal); D12.4 Benign neoplasm of descending colon; D12.5 Benign neoplasm of sigmoid colon; K62.1 Rectal polyp; K57.30 Diverticulosis of large intestine without perforation or abscess without bleeding; J44.9 Chronic obstructive pulmonary disease, unspecified; E66.9 Obesity, unspecified; Z68.37 Body mass index [BMI] 37.0-37.9, adult; Z87.891 Personal history of nicotine dependence; I48.91 Unspecified atrial fibrillation; I73.9 Peripheral vascular disease, unspecified
CPT/HCPCS: 45380; 45385; J3010; J7120

== ENCOUNTER 2019-05-10 09:02 | Outpatient (CLI) | payer OTHER, MEDICARE ==
[2019-05-10 09:20] LABS: EOSINOPHILS # (AUTO) 0.2 10^3/uL (0.0-0.7); EOSINOPHILS % (AUTO) 4.7 %; HGB - HEMOGLOBIN 13.4 g/dL (14.0-18.0); LYMPHOCYTES # (AUTO) 0.7 10^3/uL (1.5-3.5); LYMPHOCYTES % (AUTO) 18.6 %; MEAN CORPUSCULAR HEMOGLOBIN 27.9 pg (27.0-31.0); MEAN CORPUSCULAR HGB CONC 32.1 g/dL (32.0-36.0); MEAN CORPUSCULAR VOLUME 87.1 fL (80.0-94.0); MEAN PLATELET VOLUME 8.2 fL (7.4-11.4); MONOCYTES # (AUTO) 0.6 10^3/uL (0.0-1.0); MONOCYTES % (AUTO) 14.2 %; NEUTROPHILS # (AUTO) 2.4 10^3/uL (1.5-6.6); NEUTROPHILS % (AUTO) 61.2 %; PLT - PLATELET COUNT 250 10^3/uL (130-450); RED CELL DISTRIBUTION WIDTH 15.6 % (12.0-15.0); WHITE BLOOD COUNT 3.9 x10^3/uL (4.8-10.8)
[2019-05-10 09:41] LABS: BUN - BLOOD UREA NITROGEN 22 mg/dL (6-20); CALCIUM 9.1 mg/dL (8.5-10.3); CARBON DIOXIDE - CO2 27 mmol/L (21-32); CHLORIDE 103 mmol/L (101-111); CHOL/HDL RATIO 2.9 (<5.0); CHOLESTEROL 135 mg/dL; GFR - MDRD 74 (>89); GLUCOSE 118 mg/dL (70-100); HDL CHOLESTEROL 47 mg/dL; LDL CHOLESTEROL,CALCULATED 71 mg/dL; LDL/HDL RATIO 1.5 (<3.6); SODIUM 139 mmol/L (135-145); VLDL CHOLESTEROL 17 mg/dL
== END 2019-05-10 09:03 | disposition home or self-care (01) ==
LOC: LAB 09:02
PROVIDERS: ATTEND Internal Medicine Cardiovascular Disease
DX: E78.5 Hyperlipidemia, unspecified (principal); I10 Essential (primary) hypertension
CPT/HCPCS: 36415; 80048; 80061; 83721; 85025

== ENCOUNTER 2019-08-13 10:56 | Outpatient (CLI) | payer BC, MEDICARE, OTHER | END 2019-08-13 10:57 | disposition home or self-care (01) | LOC: LAB 10:56 | PROVIDERS: ATTEND Urology | DX: N28.89 Other specified disorders of kidney and ureter (principal) | CPT/HCPCS: 36415; 82565; 84520 ==

== ENCOUNTER 2019-09-12 10:36 | Day surgery (SDC) | payer BC, MEDICARE, OTHER ==
[2019-09-12] MEDS ORDERED: LACTATED RINGERS 1,000 ML IV ONE (10:40)
[2019-09-12] MEDS ORDERED: LIDO GARGLE 30 ML BOTTLE ONE (11:22)
[2019-09-12] MEDS ORDERED: LIDO GARGLE 30 ML BOTTLE PO ONE (12:08)
[2019-09-12 13:02] VITALS: BP 139/78
== END 2019-09-12 10:37 | disposition home or self-care (01) ==
LOC: SDS 10:36
PROVIDERS: ATTEND Surgery
PROC: 0DB68ZX Excision of Stomach, Via Natural or Artificial Opening Endoscopic, Diagnostic (ICD-10-PCS; principal; 2019-09-12 11:30)
DX: Z08 Encounter for follow-up examination after completed treatment for malignant neoplasm (principal); Z09 Encounter for follow-up examination after completed treatment for conditions other than malignant neoplasm; Z85.72 Personal history of non-Hodgkin lymphomas; Z87.19 Personal history of other diseases of the digestive system; J44.9 Chronic obstructive pulmonary disease, unspecified; R00.1 Bradycardia, unspecified; E66.9 Obesity, unspecified; Z68.41 Body mass index [BMI] 40.0-44.9, adult; I48.91 Unspecified atrial fibrillation; I10 Essential (primary) hypertension; Z90.5 Acquired absence of kidney; Z95.0 Presence of cardiac pacemaker; Z79.51 Long term (current) use of inhaled steroids; Z85.528 Personal history of other malignant neoplasm of kidney; Z87.891 Personal history of nicotine dependence
CPT/HCPCS: 43239; A9270; J7120

== ENCOUNTER 2019-11-22 11:59 | Emergency (ER) | payer BC, MEDICARE, OTHER ==
[2019-11-22 12:10] VITALS: BP 148/79
--- NOTE | 2019-11-22 12:46 | ED Physician Documentation ---
PD HPI BACK PAIN - Stated complaint Stated Complaint: BACK PX - Chief complaint Chief Complaint: Back Pain - History obtained from History obtained from: Patient - History of Present Illness Timing - onset: How many weeks ago (1) Timing - duration: Weeks (1) Timing - details: Gradual onset, Still present, Waxing and waning (has had ongoing low back pain with intermittent exacerbations. No particular new injury. No fever, weakness, numbness, incontinence.) Location: Lower, Right, Left Quality: Pain, Spasm Associated symptoms: No: Fever, Weakness, Numbness, Incontinent of urine Improves with: Rest Worsened by: Movement, Twisting Contributing factors: No: Lifting, Twisting, Trauma Similar symptoms before: Diagnosis (herniated discs and DDD, with chronic/recurrent low back pain.) Review of Systems Constitutional: denies: Fever, Chills Nose: denies: Rhinorrhea / runny nose, Congestion Throat: denies: Sore throat Respiratory: denies: Cough GI: denies: Nausea, Vomiting, Diarrhea : denies: Dysuria, Frequency Skin: denies: Rash, Lesions PD PAST MEDICAL HISTORY - Past Medical History Cardiovascular: Hypertension, High cholesterol, Atrial fibrillation Respiratory: COPD, Other Endocrine/Autoimmune: None GI: GI bleed, Hemorrhoids : None HEENT: None Psych: None Musculoskeletal: Osteoarthritis Derm: None - Past Surgical History Past Surgical History: Yes General: Colonoscopy, EGD, Other Ortho: Arthroscopic surgery Cardiovascular: Pacemaker, Angioplasty HEENT: Tonsil/Adenoidectomy - Present Medications Home Medications: Ambulatory Orders Medication Instructions Recorded Confirmed Albuterol Sulf [Ventolin Hfa 2 puffs INH Q4H PRN 02/11/17 09/23/19 Inhaler] Ascorbic Acid [Vitamin C] 1,000 mg PO DAILY 04/04/18 09/23/19 Cyanocobalamin (Vitamin B-12) 1,000 mcg PO DAILY 04/04/18 09/23/19 [Vitamin B-12] Losartan/Hydrochlorothiazide 25 mg PO DAILY 04/04/18 09/23/19 [Losartan-Hctz 100-25 mg Tab] Magnesium Oxide [Magnesium] 400 mg PO DAILY 04/04/18 09/23/19 Multivitamin [Theragran] 1 tab PO DAILY 04/04/18 09/23/19 Saw Hiram 160 mg PO DAILY 04/19/18 09/23/19 cilostazoL [Pletal] 100 mg PO BID 05/28/18 09/23/19 Pantoprazole [Protonix] 40 mg PO DAILY 08/16/18 09/23/19 Apixaban [Eliquis] 5 mg PO DAILY 10/08/18 09/23/19 Flecainide [Tambocar] 200 mg PO BID 03/18/19 09/23/19 Metoprolol Succinate [Toprol Xl] 50 mg PO BID 03/18/19 09/23/19 Rosuvastatin Calcium 40 mg PO DAILY 03/18/19 09/23/19 Oxycodone HCl/Acetaminophen 1 - 2 each PO Q6H PRN #20 tablet 11/22/19 [Percocet 5-325 mg Tablet] dexAMETHasone [Decadron] 4 mg PO DAILY #5 tablet 11/22/19 methocarbamoL [Robaxin] 500 mg PO Q6H PRN #30 tablet 11/22/19 - Allergies Allergies/Adverse Reactions: Allergies Allergy/AdvReac Type Severity Reaction Status Date / Time fortino Allergy Severe Syncope Verified 11/22/19 12:11 bee venom protein (honey bee) Allergy Edema Verified 11/22/19 12:11 magnesium oxide Allergy Respiratory Verified 11/22/19 12:11 [From Beelith] pyridoxine [From Beelith] Allergy Respiratory Verified 11/22/19 12:11 - Social History Does the pt smoke?: No Smoking Status: Never smoker Does the pt drink ETOH?: No Does the pt have substance abuse?: No - Immunizations Immunizations are current?: Yes - POLST Patient has POLST: No POLST Status: Full Code PD ED PE NORMAL - Vitals Vital signs reviewed: Yes - General General: Alert and oriented X 3, Well developed/nourished, Other (appears in pain, with guarded ROM.) - Abdomen Abdomen: Soft, Non tender - Back Back: No CVA TTP, Other (tender in lower back muscles bilaterally. No noted redness/rash/lesions. ) - Derm Derm: Normal color, Warm and dry - Neuro Neuro: Alert and oriented X 3, No motor deficit, No sensory deficit, Normal speech, Other (Normal knee reflexes (limited by prior knee replacements). ) Results - Vitals Vitals: Vital Signs - 24 hr 11/22/19 12:08 Temperature 36.5 C Heart Rate 79 Respiratory 16 Rate Blood Pressure 148/79 H O2 Saturation 95 Oxygen O2 Source Room air PD MEDICAL DECISION MAKING - ED course Complexity details: considered differential (has had similar pain chronic/recurrent, without new red flags. Can give meds. No imiaging seems indicated. ), d/w patient Departure - Departure Disposition: 01 Home, Self Care Clinical Impression: Acute exacerbation of chronic low back pain Condition: Stable Record reviewed to determine appropriate education?: Yes Instructions: ED Low Back Pain Injury Follow-Up: Qi Benjamin PA-C [Primary Care Provider] - Prescriptions: dexAMETHasone [Decadron] 4 mg PO DAILY #5 tablet methocarbamoL [Robaxin] 500 mg PO Q6H PRN #30 tablet PRN Reason: Spasms Oxycodone HCl/Acetaminophen [Percocet 5-325 mg Tablet] 1 - 2 each PO Q6H PRN #20 tablet PRN Reason: pain Comments: Heat and gentle stretching for the low back. Physical modalities such as chiropractic or massage are good to try as well. Decadron steroid anti-inflammatory for the next 5 days. Robaxin muscle relaxant every 6 hours if needed for spasms and stiffness. To that add Tylenol every 4-6 hours or Percocet if needed for worse pain. Recheck if not improving well over the next several days and resolved within 5 to 7 days. Return if worsening or other symptoms develop. Discharge Date/Time: 11/22/19 14:30
[2019-11-22] MEDS ORDERED: HYDROmorphone 2 MG/ML VIAL IM STA (13:53)
[2019-11-22] MEDS ORDERED: KETOROLAC 30 MG/ML VIAL IM STA (13:53)
[2019-11-22] MEDS ORDERED: CHERRY SYRUP 10 ML UDC PO ONE (13:53)
[2019-11-22] MEDS ORDERED: methocarbamoL 500 MG TABLET PO STA (13:53)
[2019-11-22] MEDS ORDERED: DEXAMETHASONE 10 MG/ML VIAL PO STA (13:53)
== END 2019-11-22 14:30 | disposition home or self-care (01) ==
LOC: ED 11:59
DX: M54.5 Low back pain (principal); I10 Essential (primary) hypertension
CPT/HCPCS: 96372; 99283; 99284; A9270; J1170

== ENCOUNTER 2020-01-01 11:41 | Emergency (ER) | payer BC, MEDICARE, OTHER ==
--- NOTE | 2020-01-01 14:57 | ED Physician Documentation ---
PD HPI HEENT - Stated complaint Stated Complaint: NOSE BLEED - Chief complaint Chief Complaint: Heent - History obtained from History obtained from: Patient - History of Present Illness Timing - onset: How many hours ago (5) Timing - details: Abrupt onset Location: Nose - Additional information Additional information: 69-year-old gentleman comes to the emergency department with chief complaint of right nares epistaxis. Patient is anticoagulated on Eliquis for history of atrial fib. Patient reports that approximately 5 hours ago he was on the toilet having a bowel movement when his right nares began to bleed. Patient denies that he was straining.Therefore he comes to the emergency department. He attempted to hold pressure for about an hour at home but was unable to get the bleeding to stopHe has had a nasal clamp in place for about 90 minutes. Patient does not have a history of the GI bleeding while on Eliquis, however he attributes this to concurrent NSAID use. Reports that he has not used NSAIDs for almost 10 years now. Patient denies unusual bruising or bleeding. No gum bruising or bleeding. He has no chest pain hemoptysis or shortness of breath. He denies any headache. PD PAST MEDICAL HISTORY - Past Medical History Past Medical History: Yes Cardiovascular: Hypertension, High cholesterol, Atrial fibrillation Respiratory: COPD, Other Endocrine/Autoimmune: None GI: GI bleed, Hemorrhoids : None HEENT: None Psych: None Musculoskeletal: Osteoarthritis Derm: None Other Past Medical History: Hx of cancer - Past Surgical History Past Surgical History: Yes General: Colonoscopy, EGD, Other Ortho: Arthroscopic surgery Cardiovascular: Pacemaker, Angioplasty HEENT: Tonsil/Adenoidectomy - Present Medications Home Medications: Ambulatory Orders Medication Instructions Recorded Confirmed Albuterol Sulf [Ventolin Hfa 2 puffs INH Q4H PRN 02/11/17 09/23/19 Inhaler] Ascorbic Acid [Vitamin C] 1,000 mg PO DAILY 04/04/18 09/23/19 Cyanocobalamin (Vitamin B-12) 1,000 mcg PO DAILY 04/04/18 09/23/19 [Vitamin B-12] Losartan/Hydrochlorothiazide 25 mg PO DAILY 04/04/18 09/23/19 [Losartan-Hctz 100-25 mg Tab] Magnesium Oxide [Magnesium] 400 mg PO DAILY 04/04/18 09/23/19 Multivitamin [Theragran] 1 tab PO DAILY 04/04/18 09/23/19 Saw Bowdon 160 mg PO DAILY 04/19/18 09/23/19 cilostazoL [Pletal] 100 mg PO BID 05/28/18 09/23/19 Pantoprazole [Protonix] 40 mg PO DAILY 08/16/18 09/23/19 Apixaban [Eliquis] 5 mg PO DAILY 10/08/18 09/23/19 Flecainide [Tambocar] 200 mg PO BID 03/18/19 09/23/19 Metoprolol Succinate [Toprol Xl] 50 mg PO BID 03/18/19 09/23/19 Rosuvastatin Calcium 40 mg PO DAILY 03/18/19 09/23/19 Oxycodone HCl/Acetaminophen 1 - 2 each PO Q6H PRN #20 tablet 11/22/19 [Percocet 5-325 mg Tablet] dexAMETHasone [Decadron] 4 mg PO DAILY #5 tablet 11/22/19 methocarbamoL [Robaxin] 500 mg PO Q6H PRN #30 tablet 11/22/19 - Allergies Allergies/Adverse Reactions: Allergies Allergy/AdvReac Type Severity Reaction Status Date / Time fortino Allergy Severe Syncope Verified 01/01/20 12:02 bee venom protein (honey bee) Allergy Edema Verified 01/01/20 12:02 - Social History Does the pt smoke?: No Smoking Status: Never smoker Does the pt drink ETOH?: No Does the pt have substance abuse?: No - Immunizations Immunizations are current?: Yes - POLST Patient has POLST: No POLST Status: Full Code PD ED PE NORMAL - General General: Alert and oriented X 3, No acute distress, Well developed/nourished, Other (obese, but well appearing) PD ED PE EXPANDED - HEENT HEENT: Right nares epsitaxis (Friable blood vessels seen in the medial anterior nares however no bleeding present. There is no septal hematoma. There is no blood present in the posterior oropharynx.), Pharynx normal Results - Vitals Vitals: Vital Signs - 24 hr 01/01/20 01/01/20 11:53 15:00 Temperature 97.2 C H 36.6 C Heart Rate 66 64 Respiratory 18 16 Rate Blood Pressure 105/65 129/79 O2 Saturation 97 95 Oxygen O2 Source Room air PD MEDICAL DECISION MAKING - ED course Complexity details: re-evaluated patient, d/w patient ED course: 69-year-old gentleman comes to the emergency department with chief complaint of right nares epistaxis. While in the emergency department he has had a nasal clamp in place for approximately 90 minutes. On exam in the room there is no further bleeding evidence. He has no blood in the posterior oropharynx. I do note mildly friable anterior nares vessels, however he is not bleeding. Will observe for short period of time 1545: After more than an hour of observation in the emergency department. Will discharge home. Departure - Departure Disposition: , Self Care Clinical Impression: Anterior epistaxis Condition: Stable Instructions: Nosebleed Follow-Up: Qi Benjamin PA-C [Primary Care Provider] - Comments: Agapito I am glad that your nose is not bleeding anymore. If the bleeding occurs again hold firm the gentle pressure for 30 to 45 minutes. If the bleeding still does not stop at that point then return to the emergency department. Return here for any other concerns such as chest pain unusual bruising or bleeding headache or if you feel lethargic or dizzy.
[2020-01-01 15:47] VITALS: BP 117/64
== END 2020-01-01 15:57 | disposition home or self-care (01) ==
LOC: ED 11:41
DX: R04.0 Epistaxis (principal); Z79.01 Long term (current) use of anticoagulants; I48.91 Unspecified atrial fibrillation; I10 Essential (primary) hypertension
CPT/HCPCS: 99281

== ENCOUNTER 2020-05-22 19:08 | Outpatient (CLI) | payer BC, MEDICARE, OTHER ==
--- NOTE | 2020-05-22 22:49 | XRAY Report ---
PROCEDURE: Lumbar Spine 2 View INDICATIONS: Chronic Low Back Pain TECHNIQUE: 2 views of the lumbar spine were acquired. COMPARISON: None. FINDINGS: Bones: 5 [id number] vertebrae are present. There is normal bony alignment. No vertebral body compression fractures. No suspicious bony lesions. There is disc disease at L5-S1 with endplate scle rosis. L5-S1 has severe facet arthropathy. The sacroiliac joints are normal. Soft tissues: Overlying bowel gas pattern is normal. No suspicious soft tissue calcifications. IMPRESSION: 1. Multilevel degenerative changes. 2. Severe disc disease at L5-S1 with endplate sclerosis. 3. Facet arthropathy at L5-S1. Reviewed by: Zach Collins on 05/22/2020 10:47 PM PST Approved by: Zach Collins on 05/22/2020 10:[address] [facility] Station ID: [id number]
== END 2020-05-22 19:09 | disposition home or self-care (01) ==
LOC: DI 19:08
PROVIDERS: ATTEND Physician Assistant Medical
DX: M47.817 Spondylosis without myelopathy or radiculopathy, lumbosacral region (principal); M51.37 Other intervertebral disc degeneration, lumbosacral region
CPT/HCPCS: 72100

== ENCOUNTER 2020-09-29 12:40 | Outpatient (CLI) | payer BC, MEDICARE, OTHER ==
[2020-09-29] MEDS ORDERED: IOVERSOL 320 100 ML VIAL IVP ONE ×2 (13:11→18:06)
[2020-09-29] MEDS ORDERED: IOPAMIDOL-300 50 ML VIAL ONE (13:11)
--- NOTE | 2020-09-29 17:11 | CT Report ---
PROCEDURE: CHEST W INDICATIONS: R KIDNEY CA CONTRAST: IV CONTRAST: Optiray 320 ml: 100 PO CONTRAST: Isovue 300 ml50 TECHNIQUE: After the administration of intravenous contrast, 5 mm thick sections acquired from the pulmonary api marco to the posterior costophrenic angles. 7 mm thick coronal MIP reformats were acquired. For radia tion dose reduction, the following was used: automated exposure control, adjustment of mA and/or kV according to patient size. COMPARISON: 05/31/2018 CT examination. FINDINGS: Image quality: Excellent. Lungs and pleura: No acute air space opacities. No pleural effusions or pneumothorax. Central and peripheral airways are patent and normal in caliber. Mediastinum: Heart size is normal. No pericardial effusion. No mediastinal or hilar adenopathy by size criteria. Thoracic aorta and central pulmonary arteries are normal in size. Esophagus is leigh ann l in caliber. No hiatal hernia. Bones and chest wall: No suspicious bony lesions. No vertebral body compression fractures. No axil leonides or supraclavicular adenopathy by size criteria. Thyroid gland is within normal limits. Abdomen: Visualized portions of the upper abdomen demonstrate fat stranding adjacent to the right montero perior pole and interpolar kidney. Upper abdominal bowel loops are normal in caliber. IMPRESSION: 1. No evidence of malignancy. Reviewed by: Lexa Garcia MD on 09/29/2020 5:10 PM PDT Approved by: Lexa Garcia MD on 09/29/2020 5:10 PM PDT Station ID: [id number]
--- NOTE | 2020-09-29 17:32 | CT Report ---
PROCEDURE: ABDOMEN W INDICATIONS: R KIDNEY CA CONTRAST: IV CONTRAST: Optiray 320 ml: 100 PO CONTRAST: Isovue 300 ml50 TECHNIQUE: After the administration of oral and intravenous contrast, 5 mm thick sections acquired from the diap hragms to the iliac crests. 5 mm thick coronal and sagittal reformats were acquired. For radiation dose reduction, the following was used: automated exposure control, adjustment of mA and/or kV accor ding to patient size. COMPARISON: 05/31/2018 FINDINGS: Image quality: Excellent. Lung bases: Lung bases are clear. Heart size is normal. Pacemaker. Solid organs: Liver and spleen are normal in size and enhancement. Gallbladder is unremarkable. Bi liary system is non dilated. Pancreas enhances normally. No adrenal nodules. Kidneys are normal in size, without hydronephrosis. A previous enhancing 2.8 cm enhancing right middle pole renal mass is no longer identified, presumably representing evidence of successful percutaneous ablation of a latrell l cell carcinoma. The right kidney is otherwise unremarkable. No left renal mass. Peritoneum and bowel: Contrast enhanced bowel loops appear normal in caliber. No free fluid or air. Nodes and vessels: No retroperitoneal or mesenteric adenopathy by size criteria. Aorta and inferior vena cava are normal in size. Bones: No suspicious bony lesions. No vertebral body compression fractures. Miscellaneous: No ventral hernias. IMPRESSION: Unremarkable CT of the abdomen with contrast. No evidence of residual or recurrent or metastatic latrell l cell carcinoma. Reviewed by: Ryan Berger MD on 09/29/2020 5:31 PM PDT Approved by: Ryan Berger MD on 09/29/2020 5:31 PM PDT Station ID: [id number]
[2020-09-29] MEDS ORDERED: IOPAMIDOL-300 50 ML VIAL PO ONE (18:08)
== END 2020-09-29 12:41 | disposition home or self-care (01) ==
LOC: DI 12:40
PROVIDERS: ATTEND Physician Assistant
DX: C64.1 Malignant neoplasm of right kidney, except renal pelvis (principal)
CPT/HCPCS: 71260; 74160; Q9967

== ENCOUNTER 2020-11-02 20:26 | Outpatient (CLI) | payer BC, MEDICARE, OTHER | END 2020-11-02 20:27 | disposition home or self-care (01) | LOC: COV 20:26 | PROVIDERS: ATTEND Surgery | DX: Z01.812 Encounter for preprocedural laboratory examination (principal); C85.99 Non-Hodgkin lymphoma, unspecified, extranodal and solid organ sites; Z20.822 Contact with and (suspected) exposure to COVID-19 ==

== ENCOUNTER 2020-11-05 08:08 | Day surgery (SDC) | payer BC, MEDICARE, OTHER ==
--- OUTSIDE RECORDS SUMMARY | 2020-11-05 08:11 | EXTERNAL MEDICAL SUMMARY RPT | Continuity of Care Document ---
: Demographics Phone Unavailable Preferred Language Nepali Marital Status Unknown Buddhism Affiliation Unknown Race Unknown Ethnic Group Unknown Author Organization [place] Address [address] [phone] Phone Care Team Providers Name Role Phone Young Unavailable Unavailable Medications date description facility 20200918 gabapentin 600 MG Oral Tablet [facility] Problems date description facility [id number] Other intervertebral disc displacement, lumbar region [facility] 20200811 Encounter for screening for other viral diseases [facility] [id number] Contact with and (suspected) exposure t o COVID-19 [facility] Procedures date description facility [id number] [facility] [id number] Finding [facility] 20200918 Diagnosis [facility] [id number] [facility] [id number] [facility] Vital Signs date measurement value source 20200811 temperature_standard 98 F [id number] temperature_metric 36.67 C [id number] heart_rate 63 /min 20200813 temperature_standard 97 F [id number] temperature_metric 36.11 C 92119251 respiration_rate 20 /min 34170741 heart_rate 61 /min 63947484 BP_systolic 128 mm[Hg] 62042112 BP_diastolic 67 mm[Hg] 05309895 weight_standard 117.06 lb [id number] weight_metric 53.1 kg 20200918 temperature_standard 97.4 F 22775270 temperature_metric 36.33 C 87910724 height_standard 70 in 20200918 height_metric 177.8 cm 05340753 heart_rate 64 /min 80664686 BP_systolic 101 mm[Hg] 36618218 BP_diastolic 63 mm[Hg] 20200918 BMI 37.0 kg/m2
[2020-11-05] MEDS ORDERED: LACTATED RINGERS 1,000 ML IV ONE ×2 (08:34→11:08)
--- NOTE | 2020-11-05 09:41 | ANESTHESIA ---
Pre-Anesthesia VS, & Labs - Diagnosis history of gastric lymphoma - Procedure EGD with biopsies Vital Signs: Temp Pulse Resp BP Pulse Ox 36.2 C L 65 18 133/75 H 95 11/05/20 08:18 11/05/20 08:18 11/05/20 08:18 11/05/20 08:18 11/05/20 08:18 Height: 5 ft 8 in Weight (kg): 116 kg Body Mass Index: 38.9 BMI Classification: Obese - NPO >8 hours Home Medications and Allergies Albuterol Sulf [Ventolin Hfa Inhaler] 2 puffs INH Q4H PRN 02/11/17 Ascorbic Acid [Vitamin C] 1,000 mg PO DAILY 04/04/18 Cyanocobalamin (Vitamin B-12) [Vitamin B-12] 1,000 mcg PO DAILY 04/04/18 Losartan/Hydrochlorothiazide [Losartan-Hctz 100-25 mg Tab] 25 mg PO DAILY 04/04/18 Magnesium Oxide [Magnesium] 400 mg PO DAILY 04/04/18 Multivitamin [Theragran] 1 tab PO DAILY 04/04/18 Saw Lykens 160 mg PO DAILY 04/19/18 cilostazoL [Pletal] 100 mg PO BID 05/28/18 Pantoprazole [Protonix] 40 mg PO DAILY 08/16/18 Apixaban [Eliquis] 5 mg PO DAILY 10/08/18 Flecainide [Tambocar] 200 mg PO BID 03/18/19 Metoprolol Succinate [Toprol Xl] 50 mg PO BID 03/18/19 Rosuvastatin Calcium 40 mg PO DAILY 03/18/19 Allergies/Adverse Reactions: Allergies Allergy/AdvReac Type Severity Reaction Status Date / Time fortino Allergy Severe Syncope Verified 09/22/20 14:44 bee venom protein (honey bee) Allergy Edema Verified 09/22/20 14:44 Anes History & Medical History - Anesthetic History Anesthesia Complications: reports: No previous complications - Medical History Cardiovascular: reports: Hypertension, High cholesterol, Peripheral Vascular Disease (s/p stenting), Atrial fibrillation, Other (pacemaker) Pulmonary: reports: COPD Gastrointestinal: reports: GI bleed, Hemorrhoids Urinary: reports: None Musculoskeletal: reports: Osteoarthritis Endocrine/Autoimmune: reports: None Blood Disorders: reports: None Skin: reports: None Smoking Status: Never smoker History of Cancer?: Yes (s/p radiation therapy) - Surgical History General: reports: Colonoscopy, EGD, Other Eyes Ears Nose Throat (EENT): reports: Tonsil/Adenoidectomy Cardiothoracic: reports: Pacemaker, Angioplasty Orthopedic: reports: Arthroscopic surgery Exam General: Alert, Oriented x3, Cooperative, No acute distress Dental: Dentures full Upper, Dentures full Lower Mouth Openin Fingerbreadth Neck Mobility: Normal Mallampati classification: IV Thyromental Distance: 4-6 cm Mental/Cognitive Status: Alert/Oriented X3, Normal for patient Plan Anesthesia Type: MAC Consent for Procedure(s) Verified and Reviewed: Yes Code Status: Attempt Resuscitation ASA classification: 3-Severe systemic disease Is this case an emergency?: No
[2020-11-05] MEDS ORDERED: PROPOFOL 200 MG/20 ML VIAL IVP ONE ×2 (10:43→10:55)
[2020-11-05] MEDS ORDERED: fentaNYL 100 MCG/2 ML VIAL ONE (10:43)
[2020-11-05 11:33] VITALS: BP 144/89
--- NOTE | 2020-11-05 13:17 | ANESTHESIA POST OP EVALUATION ---
Anesthesia Post Eval - Post Anesthesia Eval Vitals: Last Vital Signs Temp 36.2 C L 11/05/20 08:18 Pulse 60 11/05/20 11:30 Resp 12 11/05/20 11:30 BP 144/89 H 11/05/20 11:30 Pulse Ox 94 11/05/20 11:30 CV Function Including HR & BP: Stable Pain Control: Satisfactory Nausea & Vomiting: Negative Mental Status: Baseline Respiratory Status: Airway Patent Hydration Status: Satisfactory Anesthesia Complications: None
== END 2020-11-05 08:09 | disposition home or self-care (01) ==
LOC: SDS 08:08
PROVIDERS: ATTEND Surgery
PROC: 0DB78ZX Excision of Stomach, Pylorus, Via Natural or Artificial Opening Endoscopic, Diagnostic (ICD-10-PCS; 2020-11-05)
PROC: 0DB38ZX Excision of Lower Esophagus, Via Natural or Artificial Opening Endoscopic, Diagnostic (ICD-10-PCS; 2020-11-05)
PROC: 0DB48ZX Excision of Esophagogastric Junction, Via Natural or Artificial Opening Endoscopic, Diagnostic (ICD-10-PCS; 2020-11-05)
PROC: 0DB98ZX Excision of Duodenum, Via Natural or Artificial Opening Endoscopic, Diagnostic (ICD-10-PCS; principal; 2020-11-05 09:30)
DX: Z08 Encounter for follow-up examination after completed treatment for malignant neoplasm (principal); Z85.72 Personal history of non-Hodgkin lymphomas; J44.9 Chronic obstructive pulmonary disease, unspecified; I48.91 Unspecified atrial fibrillation; I10 Essential (primary) hypertension; I73.9 Peripheral vascular disease, unspecified; E66.9 Obesity, unspecified; Z68.38 Body mass index [BMI] 38.0-38.9, adult; Z95.0 Presence of cardiac pacemaker; Z92.3 Personal history of irradiation
CPT/HCPCS: 43239; J7120

== ENCOUNTER 2021-05-26 11:20 | Outpatient (CLI) | payer BC, MEDICARE, OTHER ==
--- NOTE | 2021-05-26 15:39 | XRAY Report ---
PROCEDURE: Shoulder 3 View BILAT INDICATIONS: BILATERAL SHOULDER IMPINGEMENT SYNDROME TECHNIQUE: 3 views of the shoulder were acquired. COMPARISON: None. FINDINGS: Bones: No fractures or dislocations. No suspicious bony lesions. Visualized ribs appear intact. T here is moderate to severe bilateral acromioclavicular degenerative narrowing. No erosions. Minimal g lenohumeral degenerative narrowing. Soft tissues: No suspicious soft tissue calcifications. Partially visualized pacemaker is noted. IMPRESSION: Bilateral moderate to severe acromioclavicular narrowing. Reviewed by: Rosa Carlisle MD on 05/26/2021 3:37 PM PST Approved by: Rosa Carlisle MD on 05/26/2021 3:37 PM [facility] Station ID: [id number]
== END 2021-05-26 11:21 | disposition home or self-care (01) ==
LOC: DI.N 11:20
PROVIDERS: ATTEND Physician Assistant Medical
DX: M19.011 Primary osteoarthritis, right shoulder (principal); M19.012 Primary osteoarthritis, left shoulder

== ENCOUNTER 2021-09-17 10:36 | Outpatient (CLI) | payer MEDICARE, OTHER ==
[2021-09-17 11:27] LABS: CREATININE 1.1 mg/dL (0.6-1.2)
[2021-09-17] MEDS ORDERED: IOVERSOL 320 100 ML VIAL IVP ONE ×2 (12:27→14:51)
--- NOTE | 2021-09-17 14:21 | CT Report ---
PROCEDURE: ABDOMEN W INDICATIONS: RENAL CELL CA CONTRAST: IV CONTRAST: Optiray 320 ml: 100 PO CONTRAST: *NO PO CONTRAST TECHNIQUE: After the administration of oral and intravenous contrast, 5 mm thick sections acquired from the diap hragms to the iliac crests. 5 mm thick coronal and sagittal reformats were acquired. For radiation dose reduction, the following was used: automated exposure control, adjustment of mA and/or kV accor ding to patient size. COMPARISON: September 29, 2020 FINDINGS: Gallbladder: The gallbladder is distended with a smooth thin wall. Biliary tree: No intra-or extrahepatic biliary ductal dilatation. Liver: The liver demonstrates normal enhancement, size, and contour. Hepatic steatosis. Spleen: Normal enhancement, size and morphology is seen. Splenules are seen. Pancreas: No contour deforming mass or inflammatory change. Adrenals: Normal size without masses. Kidneys/ureters: Cortical scarring of the right kidney, compatible with the reported history of previ ous percutaneous ablation of a renal cell carcinoma. Nonspecific left perinephric stranding. No solid mass or hydronephrosis is appreciated. Vasculature: No evidence of aneurysm or other significant vascular pathology. Lymphatic system: No pathologic enlargement by size criteria. GI/mesentery: No evidence of intestinal obstruction. Normal appearance of the appendix. Peritoneum/Retroperitoneum: No free intraperitoneal gas or large collection. Bones/soft tissues: Multifocal degenerative change. No suspicious osseous lesion. Small fat-containin g periumbilical hernia. IMPRESSION: 1.No significant abnormality or interval change. Reviewed by: Adolph Biswas MD on 09/17/2021 2:20 PM PDT Approved by: Adolph Biswas MD on 09/17/2021 2:20 PM PDT Station ID: [id number]
--- NOTE | 2021-09-17 14:25 | CT Report ---
PROCEDURE: CHEST W INDICATIONS: RENAL CELL CA CONTRAST: IV CONTRAST: Optiray 320 ml: 100 PO CONTRAST: *NO PO CONTRAST TECHNIQUE: After the administration of intravenous contrast, 1 mm axial images were acquired from the pulmonary apices through the posterior costophrenic angles. Axial 5 mm soft tissue kernel reconstructions were performed as well as 8 mm axial MIP and coronal and sagittal 5 mm reformations. For radiation dose reduction, the following was used: automated exposure control, adjustment of mA and/or kV according to patient size. COMPARISON: September 29, 2020 FINDINGS: CT CHEST: Thyroid: 8 mm hypoattenuating area in the right thyroid, which may reflect a nodule or cyst. Vasculature: The thoracic aorta and arch vasculature have a normal contrasted appearance and are norm al size and contour. No evidence for dissection. Heart: No cardiomegaly or significant pericardial effusion. Mediastinum: Mediastinal lymph nodes, which appear reactive. Lung/pleura: Bibasilar streaky densities, compatible with atelectasis/scar. No pleural effusion, cons olidation, or pneumothorax. Tracheobronchial tree: Patent. Upper abdomen: No significant abnormality. Bones: No significant abnormality. Multifocal degenerative change. No suspicious osseous lesion is ap preciated. Chest wall: The chest wall and axilla are within normal limits. A right cardiac device is seen. IMPRESSION: 1.No significant abnormality or evidence of metastatic disease. 2.8 mm hypoattenuating lesion in the right thyroid, which may reflect a nodule or cyst. Consider hayden elation with thyroid function tests and ultrasound as clinically warranted. Reviewed by: Adolph Biswas MD on 09/17/2021 2:24 PM PDT Approved by: Adolph Biswas MD on 09/17/2021 2:24 PM PDT Station ID: [id number]
== END 2021-09-17 10:37 | disposition home or self-care (01) ==
LOC: LAB 10:36 → DI 10:37
PROVIDERS: ATTEND Physician Assistant
DX: C64.9 Malignant neoplasm of unspecified kidney, except renal pelvis (principal); R93.89 Abnormal findings on diagnostic imaging of other specified body structures
CPT/HCPCS: 36415; 71260; 74160; 82565; Q9967

== ENCOUNTER 2021-11-04 01:28 | Emergency (ER) | payer MEDICARE, OTHER ==
--- OUTSIDE RECORDS SUMMARY | 2021-11-04 01:52 | EXTERNAL MEDICAL SUMMARY RPT | Continuity of Care Document ---
: Demographics Phone Unavailable Preferred Language Nepalese Marital Status Rastafari Affiliation NO Race Unknown Ethnic Group Unknown Author Organization [place] Address [address] [phone] Phone Care Team Providers Name Role Phone Qi Benjamin Unavailable Unavailable Allergies No information. Encounters No information. Medications date description facility 20211015 Amitriptyline Hydrochloride 50 MG Oral Tablet [facility] Problems date description facility 20211013 Radiculopathy, lumbosacral region [facility] 20211013 Other intervertebral disc displacement, lumbar region [facility] Procedures date description facility 20211015 [facility] 20211015 Finding [facility] 20211015 Diagnosis [facility] 20211013 [facility] Results No information. Vital Signs date measurement value source 20211015 weight_standard 130.75 lb 20211015 weight_metric 59.31 kg 20211015 temperature_standard 97.7 F 20211015 temperature_metric 36.5 C 20211015 height_standard 70 in 20211015 height_metric 177.8 cm 20211015 heart_rate 72 /min 20211015 BP_systolic 130 mm[Hg] 20211015 BP_diastolic 80 mm[Hg] 20211015 BMI 41.3 kg/m2
[2021-11-04] MEDS ORDERED: MAGNESIUM CITRATE 296 ML BOTTLE PO STA (02:15)
[2021-11-04] MEDS ORDERED: MINERAL OIL ENEMA 133 ML BOTTLE RC STA (02:16)
[2021-11-04 02:23] VITALS: BP 118/62
--- NOTE | 2021-11-04 06:01 | ED Physician Documentation ---
PD HPI ABD PAIN - Stated complaint Stated Complaint: BUTT PX - Chief complaint Chief Complaint: Abd Pain - History obtained from History obtained from: Patient - History of Present Illness Timing - onset: How many days ago (3) Timing - details: Waxing and waning Pain level now: 6 Quality: Cramping, Dull, Pain Location: All over / everywhere (generalized abdominal pain and cramping but predominantly rectal discomfort) Improved by: Other (nothing) Worsened by: Position (sitting) Associated symptoms: Constipation. No: Nausea, Vomiting, Diarrhea Similar symptoms before: Has not had sx before Recently seen: Not recently seen - Additional information Additional information: c/o constipation (per patient). last BM 3 days ago, has had 1-2 days of gradually increasing generalized abdominal cramping and bloating with urge to defecate without BM. Discomfort is greatest at anal verge. He does not take any narcotic/opiate medications. he says he has had intermittent problems with regular BM x 3 years subsequent to radiation tx for NHL (abdominal radiation) and nephrectomy for renal carcinoma, but has not had to be medically evaluated for constipation prior to tonight Review of Systems Constitutional: reports: Reviewed and negative GI: reports: Abdominal Pain, Constipation. denies: Nausea, Vomiting, Bloody / black stool PD PAST MEDICAL HISTORY - Past Medical History Past Medical History: Yes Cardiovascular: Hypertension, High cholesterol, Peripheral Vascular Disease, Atrial fibrillation, Other Respiratory: COPD Neuro: None Endocrine/Autoimmune: None GI: GI bleed, Hemorrhoids : None HEENT: None Psych: None Musculoskeletal: Osteoarthritis, Chronic back pain Derm: None - Past Surgical History Past Surgical History: Yes General: Colonoscopy, EGD, Other Ortho: Arthroscopic surgery Cardiovascular: Pacemaker, Angioplasty HEENT: Tonsil/Adenoidectomy - Present Medications Home Medications: Ambulatory Orders Medication Instructions Recorded Confirmed Albuterol Sulf [Ventolin Hfa 2 puffs INH Q4H PRN 02/11/17 09/20/21 Inhaler] Ascorbic Acid [Vitamin C] 1,000 mg PO DAILY 04/04/18 09/20/21 Cyanocobalamin (Vitamin B-12) 1,000 mcg PO DAILY 04/04/18 09/20/21 [Vitamin B-12] Losartan/Hydrochlorothiazide 25 mg PO DAILY 04/04/18 09/20/21 [Losartan-Hctz 100-25 mg Tab] Magnesium Oxide [Magnesium] 400 mg PO DAILY 04/04/18 09/20/21 Multivitamin [Theragran] 1 tab PO DAILY 04/04/18 09/20/21 Saw [place] 160 mg PO DAILY 04/19/18 09/20/21 cilostazoL [Pletal] 100 mg PO BID 05/28/18 09/20/21 Pantoprazole [Protonix] 40 mg PO DAILY 08/16/18 09/20/21 Apixaban [Eliquis] 5 mg PO DAILY 10/08/18 09/20/21 Flecainide [Tambocar] 200 mg PO BID 03/18/19 09/20/21 Metoprolol Succinate [Toprol Xl] 50 mg PO BID 03/18/19 09/20/21 Rosuvastatin Calcium 40 mg PO DAILY 03/18/19 09/20/21 methocarbamoL [Robaxin] 500 mg PO Q6H PRN #30 tablet 11/22/19 09/20/21 - Allergies Allergies/Adverse Reactions: Allergies Allergy/AdvReac Type Severity Reaction Status Date / Time fortino Allergy Severe Syncope Verified 11/04/21 01:40 bee venom protein (honey bee) Allergy Edema Verified 11/04/21 01:40 - Social History Does the pt smoke?: No Smoking Status: Never smoker Does the pt drink ETOH?: No Does the pt have substance abuse?: No - Immunizations Immunizations are current?: Yes - POLST Patient has POLST: No POLST Status: Full Code PD ED PE NORMAL - Vitals Vital signs reviewed: Yes - General General: Alert and oriented X 3, Well developed/nourished, Other (appears to be in mild discomfort; standing at bedside, as sitting exacerbates discomfort) - Abdomen Abdomen: Soft, Non tender, Other (mild distention, decreased bowel sounds) Results - Vitals Vitals: Vital Signs - 24 hr 11/04/21 11/04/21 01:37 02:21 Temperature 36.3 C L Heart Rate 79 72 Respiratory 17 18 Rate Blood Pressure 115/59 L 118/62 O2 Saturation 100 99 Oxygen O2 Source Room air PD MEDICAL DECISION MAKING - ED course Complexity details: considered differential, d/w patient ED course: presents with constipation x 3 days. Bedside manual disimpaction yielded moderate amount of firm stool. ED RN then administered mineral oil enema and patient subsequently had large BM with relief of symptoms. Given bottle of magnesium citrate to take once he is home. Return precautions discussed (recurrence of symptoms, fever, blood in stool) Departure - Departure Disposition: 01 Home, Self Care Clinical Impression: Constipation Qualifiers: Constipation type: unspecified constipation type Qualified Code(s): K59.00 - Constipation, unspecified Condition: Good Instructions: ED Constipation Comments: When you get home, drink one-third of the magnesium citrate provided. If you still feel constipated, you can drink another third of the bottle 2-3 hours later, and again repeat in another 2-3 hours (but only if you still feel constipated). Discharge Date/Time: 11/04/21 02:21
== END 2021-11-04 02:21 | disposition home or self-care (01) ==
LOC: ED 01:28
DX: K59.00 Constipation, unspecified (principal)
CPT/HCPCS: 99282; A9270

== ENCOUNTER 2021-11-17 10:17 | Outpatient (CLI) | payer MEDICARE, OTHER ==
[2021-11-17 10:50] LABS: BASOPHILS # (AUTO) 0.1 10^3/uL (0.0-0.1); BASOPHILS % (AUTO) 0.9 %; EOSINOPHILS # (AUTO) 0.3 10^3/uL (0.0-0.7); EOSINOPHILS % (AUTO) 4.9 %; HCT - HEMATOCRIT 42.3 % (42.0-52.0); HGB - HEMOGLOBIN 14.1 g/dL (14.0-18.0); LYMPHOCYTES # (AUTO) 1.3 10^3/uL (1.5-3.5); LYMPHOCYTES % (AUTO) 23.5 %; MEAN CORPUSCULAR HEMOGLOBIN 30.3 pg (27.0-31.0); MEAN CORPUSCULAR HGB CONC 33.3 g/dL (32.0-36.0); MEAN PLATELET VOLUME 8.4 fL (7.4-11.4); MONOCYTES # (AUTO) 0.6 10^3/uL (0.0-1.0); MONOCYTES % (AUTO) 9.6 %; NEUTROPHILS # (AUTO) 3.4 10^3/uL (1.5-6.6); NEUTROPHILS % (AUTO) 59.5 %; PLT - PLATELET COUNT 236 10^3/uL (130-450); RED BLOOD COUNT 4.65 10^6/uL (4.70-6.10); RED CELL DISTRIBUTION WIDTH 14.7 % (12.0-15.0); WHITE BLOOD COUNT 5.7 x10^3/uL (4.8-10.8)
[2021-11-17 11:25] LABS: ALBUMIN 3.6 g/dL (3.2-5.5); ALBUMIN/GLOBULIN RATIO 1.1 (1.0-2.2); ALKALINE PHOSPHATASE 51 IU/L (42-121); ALT ALANINE AMINOTRANSFERASE 58 IU/L (10-60); AST ASPARTATE AMINOTRANSFERASE 33 IU/L (10-42); BILIRUBIN,TOTAL 0.6 mg/dL (0.2-1.0); BUN - BLOOD UREA NITROGEN 27 mg/dL (6-20); CARBON DIOXIDE - CO2 30 mmol/L (21-32); CHLORIDE 100 mmol/L (101-111); CHOL/HDL RATIO 2.6 (<5.0); CHOLESTEROL 146 mg/dL; GFR - MDRD 73 (>89); GLUCOSE 97 mg/dL (70-100); HDL CHOLESTEROL 57 mg/dL; LDL CHOLESTEROL,CALCULATED 71 mg/dL; LDL/HDL RATIO 1.2 (<3.6); POTASSIUM 3.6 mmol/L (3.5-5.0); SODIUM 140 mmol/L (135-145); TOTAL PROTEIN 6.8 g/dL (6.7-8.2); TRIGLYCERIDES 91 mg/dL; VLDL CHOLESTEROL 18 mg/dL
[2021-11-17 11:36] LABS: THYROID STIMULATING HORMONE 1.93 uIU/mL (0.34-5.60)
== END 2021-11-17 10:18 | disposition home or self-care (01) ==
LOC: LAB 10:17
PROVIDERS: ATTEND Physician Assistant Medical
DX: E78.5 Hyperlipidemia, unspecified (principal); I48.91 Unspecified atrial fibrillation; Z12.5 Encounter for screening for malignant neoplasm of prostate
CPT/HCPCS: 36415; 80053; 80061; 84443; 85025; G0103; 83721; 84153

== ENCOUNTER 2022-03-09 07:48 | Outpatient (CLI) | payer MEDICARE, OTHER ==
--- NOTE | 2022-03-09 18:00 | Ultrasound Report ---
PROCEDURE: Carotid Doppler Complete INDICATIONS: NEAR SYNCOPE TECHNIQUE: Color and pulse Doppler interrogation was performed of both carotid systems, with image documentation and velocity measurements. COMPARISON: None. FINDINGS: Right side: Brachial blood pressure: 119/69 mm Hg. Common carotid artery peak systolic velocity: 57 cm/sec. Internal carotid artery peak systolic velocity: 66 cm/sec. Internal carotid artery end diastolic velocity: 31 cm/sec. External carotid artery peak systolic velocity: 77 cm/sec. ICA/CCA peak systolic ratio: 1.2 . Stein scale imaging description: Minimal plaque Percent internal carotid artery stenosis: Less than 50% . Vertebral artery: Flow direction is antegrade. Left side: Brachial blood pressure: 112/71 mm Hg. Common carotid artery peak systolic velocity: 77 cm/sec. Internal carotid artery peak systolic velocity: 135 cm/sec. Internal carotid artery end diastolic velocity: 57 cm/sec. External carotid artery peak systolic velocity: 89 cm/sec. ICA/CCA peak systolic ratio: 1.7 . Stein scale imaging description: Mild plaque Percent internal carotid artery stenosis: 50-69% . Vertebral artery: Flow direction is antegrade. IMPRESSION: 1. Peak systolic velocities consistent with 50-69% stenosis of the left internal carotid artery. 2. Less than 50% stenosis of the right internal carotid artery. Reviewed by: Medardo De La Torre MD on 03/09/2022 5:58 PM PDT Approved by: Medardo De La Torre MD on 03/09/2022 5:58 PM PDT Station ID: [id number]
== END 2022-03-09 07:49 | disposition home or self-care (01) ==
LOC: DI 07:48
PROVIDERS: ATTEND Physician Assistant
DX: R55 Syncope and collapse (principal); Z95.0 Presence of cardiac pacemaker; I65.23 Occlusion and stenosis of bilateral carotid arteries
CPT/HCPCS: 93306; 93880

== ENCOUNTER 2022-09-05 10:27 | Emergency (ER) | payer MEDICARE, OTHER ==
--- NOTE | 2022-09-05 11:18 | ED Physician Documentation ---
History of Present Illness - Stated complaint Stated Complaint: SYNCOPE - Chief complaint Chief Complaint: Neuro - History obtained from History obtained from: Patient - History of Present Illness Timing: Today PD PAST MEDICAL HISTORY - Past Medical History Past Medical History: Yes Cardiovascular: Hypertension, High cholesterol, Peripheral Vascular Disease, Atrial fibrillation, Other Respiratory: COPD Neuro: None Endocrine/Autoimmune: None GI: GI bleed, Ulcers, Hemorrhoids : None HEENT: None Psych: None Musculoskeletal: Osteoarthritis, Chronic back pain Derm: None - Past Surgical History Past Surgical History: Yes General: Colonoscopy, EGD, Other Ortho: Arthroscopic surgery Cardiovascular: Pacemaker, Angioplasty HEENT: Tonsil/Adenoidectomy - Present Medications Home Medications: Ambulatory Orders Medication Instructions Recorded Confirmed Albuterol Sulf [Ventolin Hfa 2 puffs INH Q4H PRN 02/11/17 03/21/22 Inhaler] Ascorbic Acid [Vitamin C] 1,000 mg PO DAILY 04/04/18 03/21/22 Cyanocobalamin (Vitamin B-12) 1,000 mcg PO DAILY 04/04/18 03/21/22 [Vitamin B-12] Losartan/Hydrochlorothiazide 25 mg PO DAILY 04/04/18 03/21/22 [Losartan-Hctz 100-25 mg Tab] Multivitamin [Theragran] 1 tab PO DAILY 04/04/18 03/21/[address] [employer] 160 mg PO DAILY 04/19/18 03/21/22 cilostazoL [Pletal] 100 mg PO BID 05/28/18 03/21/22 Pantoprazole [Protonix] 40 mg PO DAILY 08/16/18 03/21/22 Apixaban [Eliquis] 5 mg PO DAILY 10/08/18 03/21/22 Flecainide [Tambocar] 200 mg PO BID 03/18/19 03/21/22 Metoprolol Succinate [Toprol Xl] 50 mg PO BID 03/18/19 03/21/22 Rosuvastatin Calcium 40 mg PO DAILY 03/18/19 03/21/22 methocarbamoL [Robaxin] 500 mg PO Q6H PRN #30 tablet 11/22/19 03/21/22 - Allergies Allergies/Adverse Reactions: Allergies Allergy/AdvReac Type Severity Reaction Status Date / Time fortino Allergy Severe Syncope Verified 09/05/22 10:50 bee venom protein (honey bee) Allergy Edema Verified 09/05/22 10:50 - Social History Does the pt smoke?: No Smoking Status: Former smoker Does the pt drink ETOH?: No Does the pt have substance abuse?: No - Immunizations Immunizations are current?: Yes - POLST Patient has POLST: No POLST Status: Full Code Results - Vitals Vitals: Vital Signs - 24 hr 09/05/22 09/05/22 10:43 11:15 Temperature 36.4 C L Heart Rate 73 68 Respiratory 14 16 Rate Blood Pressure 130/71 134/83 H O2 Saturation 97 97 Oxygen O2 Source Room air - EKG (time done) 1052 Rate: Rate (enter#) (71) Rhythm: NSR [place]: Normal Intervals: Prolonged [place] QRS: Normal Ischemia: Normal ST segments
--- OUTSIDE RECORDS SUMMARY | 2022-09-05 11:25 | EXTERNAL MEDICAL SUMMARY RPT | Continuity of Care Document ---
:1950 Author Organization [place] Address [address] [place] [address] Phone Care Team Providers Name Role Phone Qi Benjamin Unavailable Unavailable Allergies No information. Encounters No information. Functional Status No information. Immunizations No information. Medications No information. 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 Results/Labs test date author facility value unit interpret ation Result panel 1 (unknown) (no (unknown) (unknown) (no value) (units (unk nown) date) unknown) (unknown) (no (unknown) (unknown) [id number] (units (unkno wn) date) unknown) (unknown) (no (unknown) (unknown) 11:59. (units (unkno wn) date) unknown) (unknown) (no (unknown) (unknown) 06/14/22 (units (unkno wn) date) unknown) (unknown) (no (unknown) (unknown) [address] [place] [address] (units (unknown) date) unknown) (unknown) (no (unknown) (unknown) Accession (units (unkn own) date) Number: unknown) [id number] (unknown) (no (unknown) (unknown) Age/Sex: 72 / M (units (unknown) date) Date of Service: unknown) (unknown) (no (unknown) (unknown) KELLY [place] (units ( unknown) date) [id number] unknown) (unknown) (no (unknown) (unknown) Approved by: (units (u nknown) date) Margarita Chacon unknown) MD Percy, PhD on 06/14/2022 at 15:17 (unknown) (no (unknown) (unknown) COMPARISON: (units (un known) date) [facility], unknown) XA, PAIN L/S TRANSFORAMINAL INJECT, 02/22/2022, (unknown) (no (unknown) (unknown) : 1950 (units (unknown) date) Acct:[id number] unknown) (unknown) (no (unknown) (unknown) Dictated by: (units (u nknown) date) Margarita Chacon unknown) MD Percy, PhD on 06/14/2022 at 15:16 (unknown) (no (unknown) (unknown) FINDINGS: Access (units (unknown) date) needle tips at unknown) the bilateral L4-L5 neural foramen. Injection (unknown) (no (unknown) (unknown) IMPRESSION: (units (un known) date) Bilateral L4-L5 unknown) neural foraminal access needles for transforaminal (unknown) (no (unknown) (unknown) INDICATIONS: (units (u nknown) date) SPONDYLOSIS unknown) (unknown) (no (unknown) (unknown) [facility] (units (unknown) date) unknown) (unknown) (no (unknown) (unknown) Loc: RAD (units (unkno wn) date) unknown) (unknown) (no (unknown) (unknown) Ordering (units (unkno wn) date) Provider: unknown) Louis Rios D.O. (unknown) (no (unknown) (unknown) PROCEDURE: PAIN (units (unknown) date) L/S TRANSFORAM unknown) INJECT PIPO (unknown) (no (unknown) (unknown) Patient: (units (unkno wn) date) Agapito Hutchison unknown) MR#: [id number] (unknown) (no (unknown) (unknown) Procedure: PAIN (units (unknown) date) l/s transforam unknown) inject pipo (unknown) (no (unknown) (unknown) Signed (units (unkno wn) date) unknown) (unknown) (no (unknown) (unknown) XRay Report (units (un known) date) unknown) (unknown) (no (unknown) (unknown) amount of (units (unkn own) date) iodinated unknown) contrast demonstrates the access needles are extra thecal. (unknown) (no (unknown) (unknown) epidural (units (unkno wn) date) unknown) (unknown) (no (unknown) (unknown) of small (units (unkno wn) date) unknown) (unknown) (no (unknown) (unknown) steroid (units (o wn) date) injection. unknown) Result panel 2 (unknown) (no (unknown) (unknown) (no value) (units (unk nown) date) unknown) (unknown) (no (unknown) (unknown) [id number] (units (unkno wn) date) unknown) (unknown) (no (unknown) (unknown) 1. (units (o wn) date) FLUOROSCOPICALLY unknown) GUIDED CONTRAST CONTROLLED TRANSFORAMINAL EPIDURAL STEROID (unknown) (no (unknown) (unknown) 06/14/22 1405 (units ( unknown) date) unknown) (unknown) (no (unknown) (unknown) After review of (units (unknown) date) previous unknown) anaesthesic history and IV conscious sedation the (unknown) (no (unknown) (unknown) Age/Sex: 72 / M (units (unknown) date) unknown) (unknown) (no (unknown) (unknown) Complications: (units (unknown) date) none unknown) (unknown) (no (unknown) (unknown) DESCRIPTION OF (units (unknown) date) PROCEDURE unknown) (unknown) (no (unknown) (unknown) : 1950 (units (unknown) date) Acct:[id number] unknown) (unknown) (no (unknown) (unknown) Date of Service: (units (unknown) date) 06/14/22 unknown) (unknown) (no (unknown) (unknown) Date of procedure: (units (unknown) date) 06/14/22 unknown) (unknown) (no (unknown) (unknown) Date/Time/Diagnose (units (unknown) date) s unknown) (unknown) (no (unknown) (unknown) Agapito is referred (units (unknown) date) by MARY Benjamin for unknown) treatment of Foraminal Stenosis with (unknown) (no (unknown) (unknown) FINDINGS (units (unkno wn) date) unknown) (unknown) (no (unknown) (unknown) Following review (units (unknown) date) of allergy and unknown) review of potential side effects and (unknown) (no (unknown) (unknown) Foraminal Nerve (units (unknown) date) Root Compression unknown) secondary to disc disease and facet hypertrophy (unknown) (no (unknown) (unknown) INJECTION - (units (un known) date) BILATERAL L4/5 unknown) TFESI (unknown) (no (unknown) (unknown) In the prone (units (un known) date) position following unknown) sterile prep and drape of the lumbar region, the (unknown) (no (unknown) (unknown) Indications: (units (u nknown) date) unknown) (unknown) (no (unknown) (unknown) [facility] (units (unknown) date) [address] unknown) [place] [address] (unknown) (no (unknown) (unknown) POST OP (units (unkno wn) date) INSTRUCTIONS unknown) (unknown) (no (unknown) (unknown) Patient: (units (unkno wn) date) Agapito Hutchison unknown) MR#: [id number] (unknown) (no (unknown) (unknown) Physician: Louis (units (unknown) date) Blanca unknown) (unknown) (no (unknown) (unknown) Pre-procedure (units ( unknown) date) diagnosis: 1. unknown) FORAMINAL STENOSIS WITH LE SYMPTOMS (unknown) (no (unknown) (unknown) Procedure Note (units (unknown) date) unknown) (unknown) (no (unknown) (unknown) Procedure Notes (units (unknown) date) unknown) (unknown) (no (unknown) (unknown) Procedure in (units (u nknown) date) detail + unknown) Post-procedure care: (unknown) (no (unknown) (unknown) Procedure: (units (unk nown) date) unknown) (unknown) (no (unknown) (unknown) Provider: (units (unkn own) date) Louis Rios D.O. unknown) (unknown) (no (unknown) (unknown) Radiological data, (units (unknown) date) including multiple unknown) fluoroscopic views of the lumbosacral (unknown) (no (unknown) (unknown) Signed (units (unkno wn) date) By:<Electronically unknown) signed by Louis Rios D.O.> (unknown) (no (unknown) (unknown) Subsequent views (units (unknown) date) show flow of unknown) contrast material flowing superiorly and (unknown) (no (unknown) (unknown) Subsequently, a (units (unknown) date) test dose of 1.5cc unknown) of 1% lidocaine solution was administered and (unknown) (no (unknown) (unknown) The patient was (units (unknown) date) provided a Pain Log unknown) to continue to record their response to the (unknown) (no (unknown) (unknown) The patient was (units (unknown) date) then transferred to unknown) the recovery area where they were observed (unknown) (no (unknown) (unknown) The procedure (units ( unknown) date) tolerated the unknown) procedure well without signs or symptoms of (unknown) (no (unknown) (unknown) Time of procedure: (units (unknown) date) 14:04 unknown) (unknown) (no (unknown) (unknown) Total Fluoroscopy (units (unknown) date) time (seconds): 23 unknown) (unknown) (no (unknown) (unknown) Total sedation (units (unknown) date) minutes: 20 unknown) (unknown) (no (unknown) (unknown) accomplished with (units (unknown) date) a combination of unknown) 2mg of Versed was administered by the RN (unknown) (no (unknown) (unknown) advanced under (units (unknown) date) fluoroscopic unknown) guidance through the posterior right L4/5 (unknown) (no (unknown) (unknown) after DO order, (units (unknown) date) titrated to patient unknown) comfort during the course of the procedure (unknown) (no (unknown) (unknown) and agreed to (units ( unknown) date) proceed. An unknown) informed consent document was signed by the patient, (unknown) (no (unknown) (unknown) anesthetized via a (units (unknown) date) 25-gauge 1.5-inch unknown) needle with 1% lidocaine solution. At this (unknown) (no (unknown) (unknown) approximately (units ( unknown) date) 1.5cc of Isovue 200 unknown) under live fluoroscopy in the AP view (unknown) (no (unknown) (unknown) bilateral LE (units (u nknown) date) Symptoms unknown) (unknown) (no (unknown) (unknown) complications (units ( unknown) date) associated with the unknown) procedure are suspected. (unknown) (no (unknown) (unknown) complications (units ( unknown) date) prior to transfer unknown) to the recovery area continued monitoring (unknown) (no (unknown) (unknown) complications, (units (unknown) date) including, but not unknown) necessarily limited to, infection, allergic (unknown) (no (unknown) (unknown) confirmed (units (unkn own) date) excellent flow unknown) along the nerve root, into the epidural space without (unknown) (no (unknown) (unknown) confirmed on (units (u nknown) date) lateral view. unknown) Following negative aspiration, injection of (unknown) (no (unknown) (unknown) extremity (units (unkn own) date) weakness, nausea unknown) and vomiting, prior to steroid injection. At this (unknown) (no (unknown) (unknown) for an appropriate (units (unknown) date) time after the unknown) injection. The patient reported a VAS score (unknown) (no (unknown) (unknown) including (units (unkn own) date) abdominal pain, unknown) shortness of breath, bilateral upper or lower (unknown) (no (unknown) (unknown) inferiorly along (units (unknown) date) the nerve root unknown) confirming epidural flow. (unknown) (no (unknown) (unknown) injected without (units (unknown) date) incident. Attention unknown) was then refocused to the left L4/5 level (unknown) (no (unknown) (unknown) neuroforamen to (units (unknown) date) approximately the unknown) anterior aspect of the canal. Depth was (unknown) (no (unknown) (unknown) number to our (units ( unknown) date) office were unknown) provided if concerns arise regarding possible (unknown) (no (unknown) (unknown) of 7 prior to the (units (unknown) date) procedure and a unknown) post-procedure VAS of 0. (unknown) (no (unknown) (unknown) paralysis, and (units ( unknown) date) possible , the unknown) patient indicated that the patient understood (unknown) (no (unknown) (unknown) patient ID, (units (un known) date) procedure to be unknown) performed and site of procedure. IV sedation was (unknown) (no (unknown) (unknown) patient was deemed (units (unknown) date) safe to proceed unknown) with today?s procedure with IV conscious (unknown) (no (unknown) (unknown) patient was (units (un known) date) observed for two unknown) minutes for signs or symptoms of complications, (unknown) (no (unknown) (unknown) physician. (units (unkn own) date) Additionally, unknown) specific post-injection care instructions and a contact (unknown) (no (unknown) (unknown) point, a 22-gauge (units (unknown) date) 5-inch spinal unknown) needle was atraumatically introduced and (unknown) (no (unknown) (unknown) point, a total of (units (unknown) date) 3cc or 20mg of unknown) dexamethasone and 6mg betamethasone was (unknown) (no (unknown) (unknown) reaction, local (units (unknown) date) tissue breakdown, unknown) stroke, temporary or permanent nerve injury, (unknown) (no (unknown) (unknown) reviewed with the (units (unknown) date) patient. unknown) (unknown) (no (unknown) (unknown) right L4/5 (units (unk nown) date) posterior unknown) neuroforamen was identified fluoroscopically. The skin was (unknown) (no (unknown) (unknown) sedation as ASA (units (unknown) date) class II unknown) designation. Safety time-out was performed to confirm (unknown) (no (unknown) (unknown) spine, reveal a (units (unknown) date) spinal needle at unknown) the right L4/5 posterior neuroforamen. (unknown) (no (unknown) (unknown) target-specific (units (unknown) date) procedure prior to unknown) follow-up visit with their referring (unknown) (no (unknown) (unknown) treatment options (units (unknown) date) including unknown) medications, modalities, and physical therapy were (unknown) (no (unknown) (unknown) vascular or (units (un known) date) intrathecal uptake unknown) observed (unknown) (no (unknown) (unknown) where the (units (unkn own) date) identical procedure unknown) was replicated. (unknown) (no (unknown) (unknown) while the patient (units (unknown) date) remained responsive unknown) to all verbal commands (unknown) (no (unknown) (unknown) without incident. (units (unknown) date) unknown) (unknown) (no (unknown) (unknown) witnessed by a (units (unknown) date) nurse, and placed unknown) in the patient's chart. Additionally, other Result panel 3 (unknown) (no (unknown) (unknown) (no value) (units (unk nown) date) unknown) (unknown) (no (unknown) (unknown) (Scale Score (units (u nknown) date) 1-3) 06/17/20 unknown) [History Confirmed 07/27/22] (unknown) (no (unknown) (unknown) 07/27/22 (units (unkno wn) date) unknown) (unknown) (no (unknown) (unknown) 07/27/22] (units (unkn own) date) unknown) (unknown) (no (unknown) (unknown) [id number] (units (unkno wn) date) unknown) (unknown) (no (unknown) (unknown) 06/17/20 (units (unkno wn) date) [History unknown) Confirmed 07/27/22] (unknown) (no (unknown) (unknown) Accompanied by: (units (unknown) date) Self / Same As unknown) Patient (unknown) (no (unknown) (unknown) Age/Sex: 72 / M (units (unknown) date) Date of Service: unknown) (unknown) (no (unknown) (unknown) Allergies (units (unkn own) date) unknown) (unknown) (no (unknown) (unknown) KELLY [place]amontes (units ( unknown) date) [id number] unknown) (unknown) (no (unknown) (unknown) Attending Dr: (units ( unknown) date) Louis Rios unknown) D.O. (unknown) (no (unknown) (unknown) COPD (chronic (units ( unknown) date) obstructive unknown) pulmonary disease) (unknown) (no (unknown) (unknown) Cardiovascular (units (unknown) date) disease unknown) (unknown) (no (unknown) (unknown) Confirmed (units (unkn own) date) 07/27/22] unknown) (unknown) (no (unknown) (unknown) : 1950 (units (unknown) date) Acct:[id number] unknown) (unknown) (no (unknown) (unknown) Daughter Weight (units (unknown) date) above 97th unknown) percentile (unknown) (no (unknown) (unknown) Dept at (units (unkno wn) date) . unknown) (unknown) (no (unknown) (unknown) Documented By: (units (unknown) date) Louis Rios unknown) D.O. 07/27/22 1511 (unknown) (no (unknown) (unknown) Draft (units (unkno wn) date) unknown) (unknown) (no (unknown) (unknown) Family History (units (unknown) date) (Reviewed unknown) 05/18/22 @ 15:51 by Louis Rios DO) (unknown) (no (unknown) (unknown) H/O knee surgery (units (unknown) date) unknown) (unknown) (no (unknown) (unknown) H/O right (units (unkn own) date) nephrectomy unknown) (unknown) (no (unknown) (unknown) Herniated (units (unkn own) date) nucleus pulposus, unknown) L4-5 (unknown) (no (unknown) (unknown) History of (units (unk nown) date) chronic atrial unknown) fibrillation (unknown) (no (unknown) (unknown) History of (units (unk nown) date) hernia surgery unknown) (unknown) (no (unknown) (unknown) Intake Clinical (units (unknown) date) Staff unknown) (unknown) (no (unknown) (unknown) Intake performed (units (unknown) date) by: Elly Pollard unknown) (unknown) (no (unknown) (unknown) Intake (units (unkno wn) date) unknown) (unknown) (no (unknown) (unknown) Loc: PAIN (units (unkn own) date) unknown) (unknown) (no (unknown) (unknown) Lumbosacral (units (un known) date) radiculopathy at unknown) L5 (unknown) (no (unknown) (unknown) Medical History (units (unknown) date) (Reviewed unknown) 05/18/22 @ 15:51 by Louis Rios DO) (unknown) (no (unknown) (unknown) Medications (units (un known) date) unknown) (unknown) (no (unknown) (unknown) NAUSEA (units (unkno wn) date) unknown) (unknown) (no (unknown) (unknown) PFSH (units (unkno wn) date) unknown) (unknown) (no (unknown) (unknown) Pacemaker (units (unkn own) date) unknown) (unknown) (no (unknown) (unknown) Pain Visit (units (unk nown) date) unknown) (unknown) (no (unknown) (unknown) Patient: (units (unkno wn) date) Agapito Hutchison unknown) MR#: [id number] (unknown) (no (unknown) (unknown) Reason For Visit (units (unknown) date) unknown) (unknown) (no (unknown) (unknown) SOB (units (unkno wn) date) unknown) (unknown) (no (unknown) (unknown) Shortness Of (units (u nknown) date) Breath Or unknown) Wheezing 06/17/20 [History Confirmed 07/27/22] (unknown) (no (unknown) (unknown) Signed By: (units (unk nown) date) unknown) (unknown) (no (unknown) (unknown) Smoking Status: (units (unknown) date) Former smoker unknown) (unknown) (no (unknown) (unknown) Surgical History (units (unknown) date) (Reviewed unknown) 05/18/22 @ 15:51 by Louis Rios DO) (unknown) (no (unknown) (unknown) [facility] ([facility] unknown) (unknown) (no (unknown) (unknown) This note may (units ( unknown) date) have been all or unknown) partially generated using voice recognition (unknown) (no (unknown) (unknown) Tobacco + (units (unkn own) date) Substance Use unknown) (unknown) (no (unknown) (unknown) Tobacco Status (units (unknown) date) unknown) (unknown) (no (unknown) (unknown) Visit Reasons: (units (unknown) date) FOLLOW UP BILAT unknown) L4/5 TF DAVID, POST LUMBAR INJECTION (unknown) (no (unknown) (unknown) [History (units (unkno wn) date) Confirmed unknown) 07/27/22] (unknown) (no (unknown) (unknown) acetaminophen (units ( unknown) date) 500 mg tablet unknown) (Tylenol Extra Strength) 500 mg PO QID PRN Pain (unknown) (no (unknown) (unknown) albuterol (units (unkn own) date) sulfate 90 unknown) mcg/actuation aerosol inhaler 2 puff inhalation Q6H PRN (unknown) (no (unknown) (unknown) amitriptyline 50 (units (unknown) date) mg tablet 50 mg unknown) PO DAILY 10/15/21 [History Confirmed 07/27/22] (unknown) (no (unknown) (unknown) apixaban 5 mg (units (u nknown) date) tablet (Eliquis) unknown) 5 mg PO BID 06/17/20 [History Confirmed 07/27/22] (unknown) (no (unknown) (unknown) ascorbic acid (units ( unknown) date) (vitamin C) 500 unknown) mg capsule mg PO 06/17/20 [History Confirmed (unknown) (no (unknown) (unknown) cilostazol 100 (units (unknown) date) mg tablet 100 mg unknown) PO BID 06/17/20 [History Confirmed 07/27/22] (unknown) (no (unknown) (unknown) flecainide 100 (units (unknown) date) mg tablet 50 mg unknown) PO Q12H 06/17/20 [History Confirmed 07/27/22] (unknown) (no (unknown) (unknown) gabapentin 600 (units (unknown) date) mg tablet 600 mg unknown) PO TID #270 tabs 02/08/22 [Rx Confirmed (unknown) (no (unknown) (unknown) have occurred. (units (unknown) date) If there are any unknown) questions, please contact the Medical Records (unknown) (no (unknown) (unknown) losartan 100 (units (u nknown) date) mg-hydrochlorothi unknown) azide 25 mg tablet 1 tab PO DAILY 01/19/22 (unknown) (no (unknown) (unknown) may occur. (units (unk nown) date) Occasional unknown) wrong-word or 'sound-alike' substitutions may have (unknown) (no (unknown) (unknown) metoprolol (units (unk nown) date) succinate 100 mg unknown) tablet,extended release 24 hr 100 mg PO DAILY (unknown) (no (unknown) (unknown) occurred due to (units (unknown) date) the inherent unknown) limitations of voice recognition software. Please (unknown) (no (unknown) (unknown) pantoprazole 40 (units (unknown) date) mg tablet,delayed unknown) release 40 mg PO DAILY 06/17/20 [History (unknown) (no (unknown) (unknown) read the note (units ( unknown) date) carefully and unknown) recognize, using context, where these substitutions (unknown) (no (unknown) (unknown) fortino Adverse (units (unknown) date) Reaction unknown) (Intermediate, Verified 07/27/22 15:11) (unknown) (no (unknown) (unknown) rosuvastatin 40 (units (unknown) date) mg tablet unknown) (Crestor) 40 mg PO DAILY 06/17/20 [History Confirmed (unknown) (no (unknown) (unknown) saw palmetto 500 (units (unknown) date) mg capsule 500 mg unknown) PO BID 06/17/20 [History Confirmed 07/27/22] (unknown) (no (unknown) (unknown) software. 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 errors (unknown) (no (unknown) (unknown) venom-honey bee (units (unknown) date) Allergy (Severe, unknown) Verified 07/27/22 15:11) Result panel 4 (unknown) (no (unknown) (unknown) (no value) (units (unk nown) date) unknown) (unknown) (no (unknown) (unknown) (Scale Score (units (u nknown) date) 1-3) 06/17/20 unknown) [History Confirmed 07/27/22] (unknown) (no (unknown) (unknown) 07/27/22 (units (unkno wn) date) unknown) (unknown) (no (unknown) (unknown) 07/27/22] (units (unkn own) date) unknown) (unknown) (no (unknown) (unknown) [id number] (units (unkno wn) date) unknown) (unknown) (no (unknown) (unknown) 06/17/20 (units (unkno wn) date) [History unknown) Confirmed 07/27/22] (unknown) (no (unknown) (unknown) Accompanied by: (units (unknown) date) Self / Same As unknown) Patient (unknown) (no (unknown) (unknown) Age/Sex: 72 / M (units (unknown) date) Date of Service: unknown) (unknown) (no (unknown) (unknown) Allergies (units (unkn own) date) unknown) (unknown) (no (unknown) (unknown) [place], [place] (units ( unknown) date) [id number] unknown) (unknown) (no (unknown) (unknown) Attending Dr: (units ( unknown) date) Louis Rios unknown) D.O. (unknown) (no (unknown) (unknown) COPD (chronic (units ( unknown) date) obstructive unknown) pulmonary disease) (unknown) (no (unknown) (unknown) Cardiovascular (units (unknown) date) disease unknown) (unknown) (no (unknown) (unknown) Confirmed (units (unkn own) date) 07/27/22] unknown) (unknown) (no (unknown) (unknown) : 1950 (units (unknown) date) Acct:[id number] unknown) (unknown) (no (unknown) (unknown) Daughter Weight (units (unknown) date) above 97th unknown) percentile (unknown) (no (unknown) (unknown) Dept at (units (unkno wn) date) . unknown) (unknown) (no (unknown) (unknown) Documented By: (units (unknown) date) Louis Rios unknown) D.O. 07/27/22 1511 (unknown) (no (unknown) (unknown) Draft (units (unkno wn) date) unknown) (unknown) (no (unknown) (unknown) Family History (units (unknown) date) (Reviewed unknown) 05/18/22 @ 15:51 by Louis Rios DO) (unknown) (no (unknown) (unknown) H/O knee surgery (units (unknown) date) unknown) (unknown) (no (unknown) (unknown) H/O right (units (unkn own) date) nephrectomy unknown) (unknown) (no (unknown) (unknown) HERE FOR POST (units ( unknown) date) LUMBAR INJECTION unknown) (unknown) (no (unknown) (unknown) Herniated (units (unkn own) date) nucleus pulposus, unknown) L4-5 (unknown) (no (unknown) (unknown) History of (units (unk nown) date) chronic atrial unknown) fibrillation (unknown) (no (unknown) (unknown) History of (units (unk nown) date) hernia surgery unknown) (unknown) (no (unknown) (unknown) Intake Clinical (units (unknown) date) Staff unknown) (unknown) (no (unknown) (unknown) Intake Note: (units (u nknown) date) unknown) (unknown) (no (unknown) (unknown) Intake performed (units (unknown) date) by: Elly Pollard unknown) (unknown) (no (unknown) (unknown) Intake (units (unkno wn) date) unknown) (unknown) (no (unknown) (unknown) Loc: PAIN (units (unkn own) date) unknown) (unknown) (no (unknown) (unknown) Lumbosacral (units (un known) date) radiculopathy at unknown) L5 (unknown) (no (unknown) (unknown) Medical History (units (unknown) date) (Reviewed unknown) 05/18/22 @ 15:51 by Louis Rios DO) (unknown) (no (unknown) (unknown) Medications (units (un known) date) unknown) (unknown) (no (unknown) (unknown) NAUSEA (units (unkno wn) date) unknown) (unknown) (no (unknown) (unknown) PFSH (units (unkno wn) date) unknown) (unknown) (no (unknown) (unknown) Pacemaker (units (unkn own) date) unknown) (unknown) (no (unknown) (unknown) Pain Visit (units (unk nown) date) unknown) (unknown) (no (unknown) (unknown) Patient: (units (unkno wn) date) Agapito Hutchison unknown) MR#: [id number] (unknown) (no (unknown) (unknown) Reason For Visit (units (unknown) date) unknown) (unknown) (no (unknown) (unknown) SOB (units (unkno wn) date) unknown) (unknown) (no (unknown) (unknown) Shortness Of (units (u nknown) date) Breath Or unknown) Wheezing 06/17/20 [History Confirmed 07/27/22] (unknown) (no (unknown) (unknown) Signed By: (units (unk nown) date) unknown) (unknown) (no (unknown) (unknown) Smoking Status: (units (unknown) date) Former smoker unknown) (unknown) (no (unknown) (unknown) Surgical History (units (unknown) date) (Reviewed unknown) 05/18/22 @ 15:51 by Louis Rios DO) (unknown) (no (unknown) (unknown) [facility] ([facility] unknown) (unknown) (no (unknown) (unknown) This note may (units ( unknown) date) have been all or unknown) partially generated using voice recognition (unknown) (no (unknown) (unknown) Tobacco + (units (unkn own) date) Substance Use unknown) (unknown) (no (unknown) (unknown) Tobacco Status (units (unknown) date) unknown) (unknown) (no (unknown) (unknown) Visit Reasons: (units (unknown) date) FOLLOW UP BILAT unknown) L4/5 TF DAVID, POST LUMBAR INJECTION (unknown) (no (unknown) (unknown) [History (units (unkno wn) date) Confirmed unknown) 07/27/22] (unknown) (no (unknown) (unknown) acetaminophen (units ( unknown) date) 500 mg tablet unknown) (Tylenol Extra Strength) 500 mg PO QID PRN Pain (unknown) (no (unknown) (unknown) albuterol (units (unkn own) date) sulfate 90 unknown) mcg/actuation aerosol inhaler 2 puff inhalation Q6H PRN (unknown) (no (unknown) (unknown) amitriptyline 50 (units (unknown) date) mg tablet 50 mg unknown) PO DAILY 10/15/21 [History Confirmed 07/27/22] (unknown) (no (unknown) (unknown) apixaban 5 mg (units (u nknown) date) tablet (Eliquis) unknown) 5 mg PO BID 06/17/20 [History Confirmed 07/27/22] (unknown) (no (unknown) (unknown) ascorbic acid (units ( unknown) date) (vitamin C) 500 unknown) mg capsule mg PO 06/17/20 [History Confirmed (unknown) (no (unknown) (unknown) cilostazol 100 (units (unknown) date) mg tablet 100 mg unknown) PO BID 06/17/20 [History Confirmed 07/27/22] (unknown) (no (unknown) (unknown) flecainide 100 (units (unknown) date) mg tablet 50 mg unknown) PO Q12H 06/17/20 [History Confirmed 07/27/22] (unknown) (no (unknown) (unknown) gabapentin 600 (units (unknown) date) mg tablet 600 mg unknown) PO TID #270 tabs 02/08/22 [Rx Confirmed (unknown) (no (unknown) (unknown) have occurred. (units (unknown) date) If there are any unknown) questions, please contact the Medical Records (unknown) (no (unknown) (unknown) losartan 100 (units (u nknown) date) mg-hydrochlorothi unknown) azide 25 mg tablet 1 tab PO DAILY 01/19/22 (unknown) (no (unknown) (unknown) may occur. (units (unk nown) date) Occasional unknown) wrong-word or 'sound-alike' substitutions may have (unknown) (no (unknown) (unknown) metoprolol (units (unk nown) date) succinate 100 mg unknown) tablet,extended release 24 hr 100 mg PO DAILY (unknown) (no (unknown) (unknown) occurred due to (units (unknown) date) the inherent unknown) limitations of voice recognition software. Please (unknown) (no (unknown) (unknown) pantoprazole 40 (units (unknown) date) mg tablet,delayed unknown) release 40 mg PO DAILY 06/17/20 [History (unknown) (no (unknown) (unknown) read the note (units ( unknown) date) carefully and unknown) recognize, using context, where these substitutions (unknown) (no (unknown) (unknown) fortino Adverse (units (unknown) date) Reaction unknown) (Intermediate, Verified 07/27/22 15:11) (unknown) (no (unknown) (unknown) rosuvastatin 40 (units (unknown) date) mg tablet unknown) (Crestor) 40 mg PO DAILY 06/17/20 [History Confirmed (unknown) (no (unknown) (unknown) saw palmetto 500 (units (unknown) date) mg capsule 500 mg unknown) PO BID 06/17/20 [History Confirmed 07/27/22] (unknown) (no (unknown) (unknown) software. 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 errors (unknown) (no (unknown) (unknown) venom-honey bee (units (unknown) date) Allergy (Severe, unknown) Verified 07/27/22 15:11) Result panel 5 (unknown) (no (unknown) (unknown) (no value) (units (unk nown) date) unknown) (unknown) (no (unknown) (unknown) (Scale Score (units (u nknown) date) 1-3) 06/17/20 unknown) [History Confirmed 07/27/22] (unknown) (no (unknown) (unknown) 07/27/22 (units (unkno wn) date) unknown) (unknown) (no (unknown) (unknown) 07/27/22] (units (unkn own) date) unknown) (unknown) (no (unknown) (unknown) [id number] (units (unkno wn) date) unknown) (unknown) (no (unknown) (unknown) 06/17/20 (units (unkno wn) date) [History unknown) Confirmed 07/27/22] (unknown) (no (unknown) (unknown) 16:18 (units (unkno wn) date) unknown) (unknown) (no (unknown) (unknown) Accompanied by: (units (unknown) date) Self / Same As unknown) Patient (unknown) (no (unknown) (unknown) Age/Sex: 72 / M (units (unknown) date) Date of Service: unknown) (unknown) (no (unknown) (unknown) Allergies (units (unkn own) date) unknown) (unknown) (no (unknown) (unknown) [place], [place] (units ( unknown) date) [id number] unknown) (unknown) (no (unknown) (unknown) Attending Dr: (units ( unknown) date) Louis Rios unknown) D.O. (unknown) (no (unknown) (unknown) BMI 40.1 (units (unkno wn) date) unknown) (unknown) (no (unknown) (unknown) BP 124/78 (units (unkn own) date) unknown) (unknown) (no (unknown) (unknown) Blood Pressure (units (unknown) date) Location Rt unknown) brachial (unknown) (no (unknown) (unknown) COPD (chronic (units ( unknown) date) obstructive unknown) pulmonary disease) (unknown) (no (unknown) (unknown) Cardiovascular (units (unknown) date) disease unknown) (unknown) (no (unknown) (unknown) Confirmed (units (unkn own) date) 07/27/22] unknown) (unknown) (no (unknown) (unknown) : 1950 (units (unknown) date) Acct:[id number] unknown) (unknown) (no (unknown) (unknown) Daughter Weight (units (unknown) date) above 97th unknown) percentile (unknown) (no (unknown) (unknown) Dept at (units (unkno wn) date) . unknown) (unknown) (no (unknown) (unknown) Documented By: (units (unknown) date) Louis Rios unknown) D.O. 07/27/22 1511 (unknown) (no (unknown) (unknown) Draft (units (unkno wn) date) unknown) (unknown) (no (unknown) (unknown) Family History (units (unknown) date) (Reviewed unknown) 05/18/22 @ 15:51 by Louis Rios DO) (unknown) (no (unknown) (unknown) H/O knee surgery (units (unknown) date) unknown) (unknown) (no (unknown) (unknown) H/O right (units (unkn own) date) nephrectomy unknown) (unknown) (no (unknown) (unknown) HERE FOR POST (units ( unknown) date) LUMBAR INJECTION unknown) (unknown) (no (unknown) (unknown) Height 5 ft 10 (units (unknown) date) in unknown) (unknown) (no (unknown) (unknown) Herniated (units (unkn own) date) nucleus pulposus, unknown) L4-5 (unknown) (no (unknown) (unknown) History of (units (unk nown) date) chronic atrial unknown) fibrillation (unknown) (no (unknown) (unknown) History of (units (unk nown) date) hernia surgery unknown) (unknown) (no (unknown) (unknown) Intake Clinical (units (unknown) date) Staff unknown) (unknown) (no (unknown) (unknown) Intake Note: (units (u nknown) date) unknown) (unknown) (no (unknown) (unknown) Intake performed (units (unknown) date) by: Elly Pollard unknown) (unknown) (no (unknown) (unknown) Intake (units (unkno wn) date) unknown) (unknown) (no (unknown) (unknown) Is patient in (units ( unknown) date) pain?: Yes (HERE unknown) FOR POST LUMBAR INJECTION) Pain scale (1-10): 5 (unknown) (no (unknown) (unknown) Loc: PAIN (units (unkn own) date) unknown) (unknown) (no (unknown) (unknown) Lumbosacral (units (un known) date) radiculopathy at unknown) L5 (unknown) (no (unknown) (unknown) Medical History (units (unknown) date) (Reviewed unknown) 05/18/22 @ 15:51 by Louis Rios DO) (unknown) (no (unknown) (unknown) Medications (units (un known) date) unknown) (unknown) (no (unknown) (unknown) NAUSEA (units (unkno wn) date) unknown) (unknown) (no (unknown) (unknown) Oxygen Delivery (units (unknown) date) Method room air unknown) (unknown) (no (unknown) (unknown) PFSH (units (unkno wn) date) unknown) (unknown) (no (unknown) (unknown) Pacemaker (units (unkn own) date) unknown) (unknown) (no (unknown) (unknown) Pain Scale (units (unk nown) date) unknown) (unknown) (no (unknown) (unknown) Pain Visit (units (unk nown) date) unknown) (unknown) (no (unknown) (unknown) Patient: (units (unkno wn) date) Agapito Hutchison unknown) MR#: [id number] (unknown) (no (unknown) (unknown) Position Sitting (units (unknown) date) unknown) (unknown) (no (unknown) (unknown) Pulse 79 (units (unkno wn) date) unknown) (unknown) (no (unknown) (unknown) Pulse Oximetry (units (unknown) date) (%) 98 unknown) (unknown) (no (unknown) (unknown) Pulse Source (units (u nknown) date) Monitor unknown) (unknown) (no (unknown) (unknown) Reason For Visit (units (unknown) date) unknown) (unknown) (no (unknown) (unknown) SOB (units (unkno wn) date) unknown) (unknown) (no (unknown) (unknown) Shortness Of (units (u nknown) date) Breath Or unknown) Wheezing 06/17/20 [History Confirmed 07/27/22] (unknown) (no (unknown) (unknown) Signed By: (units (unk nown) date) unknown) (unknown) (no (unknown) (unknown) Smoking Status: (units (unknown) date) Former smoker unknown) (unknown) (no (unknown) (unknown) Surgical History (units (unknown) date) (Reviewed unknown) 05/18/22 @ 15:51 by Louis Rios DO) (unknown) (no (unknown) (unknown) Temp 97.6 F (units (un known) date) unknown) (unknown) (no (unknown) (unknown) Temp Source (units (un known) date) Temporal Artery unknown) Scan (unknown) (no (unknown) (unknown) [facility] (units ([facility]) date) [facility] unknown) (unknown) (no (unknown) (unknown) This note may (units ( unknown) date) have been all or unknown) partially generated using voice recognition (unknown) (no (unknown) (unknown) Tobacco + (units (unkn own) date) Substance Use unknown) (unknown) (no (unknown) (unknown) Tobacco Status (units (unknown) date) unknown) (unknown) (no (unknown) (unknown) Visit Reasons: (units (unknown) date) FOLLOW UP BILAT unknown) L4/5 TF DAVID, POST LUMBAR INJECTION (unknown) (no (unknown) (unknown) Vitals (units (unkno wn) date) unknown) (unknown) (no (unknown) (unknown) Weight 280 lb (units ( unknown) date) unknown) (unknown) (no (unknown) (unknown) [History (units (unkno wn) date) Confirmed unknown) 07/27/22] (unknown) (no (unknown) (unknown) acetaminophen (units ( unknown) date) 500 mg tablet unknown) (Tylenol Extra Strength) 500 mg PO QID PRN Pain (unknown) (no (unknown) (unknown) albuterol (units (unkn own) date) sulfate 90 unknown) mcg/actuation aerosol inhaler 2 puff inhalation Q6H PRN (unknown) (no (unknown) (unknown) amitriptyline 50 (units (unknown) date) mg tablet 50 mg unknown) PO DAILY 10/15/21 [History Confirmed 07/27/22] (unknown) (no (unknown) (unknown) apixaban 5 mg (units (u nknown) date) tablet (Eliquis) unknown) 5 mg PO BID 06/17/20 [History Confirmed 07/27/22] (unknown) (no (unknown) (unknown) ascorbic acid (units ( unknown) date) (vitamin C) 500 unknown) mg capsule mg PO 06/17/20 [History Confirmed (unknown) (no (unknown) (unknown) cilostazol 100 (units (unknown) date) mg tablet 100 mg unknown) PO BID 06/17/20 [History Confirmed 07/27/22] (unknown) (no (unknown) (unknown) flecainide 100 (units (unknown) date) mg tablet 50 mg unknown) PO Q12H 06/17/20 [History Confirmed 07/27/22] (unknown) (no (unknown) (unknown) gabapentin 600 (units (unknown) date) mg tablet 600 mg unknown) PO TID #270 tabs 02/08/22 [Rx Confirmed (unknown) (no (unknown) (unknown) have occurred. (units (unknown) date) If there are any unknown) questions, please contact the Medical Records (unknown) (no (unknown) (unknown) losartan 100 (units (u nknown) date) mg-hydrochlorothi unknown) azide 25 mg tablet 1 tab PO DAILY 01/19/22 (unknown) (no (unknown) (unknown) may occur. (units (unk nown) date) Occasional unknown) wrong-word or 'sound-alike' substitutions may have (unknown) (no (unknown) (unknown) metoprolol (units (unk nown) date) succinate 100 mg unknown) tablet,extended release 24 hr 100 mg PO DAILY (unknown) (no (unknown) (unknown) occurred due to (units (unknown) date) the inherent unknown) limitations of voice recognition software. Please (unknown) (no (unknown) (unknown) pantoprazole 40 (units (unknown) date) mg tablet,delayed unknown) release 40 mg PO DAILY 06/17/20 [History (unknown) (no (unknown) (unknown) read the note (units ( unknown) date) carefully and unknown) recognize, using context, where these substitutions (unknown) (no (unknown) (unknown) fortino Adverse (units (unknown) date) Reaction unknown) (Intermediate, Verified 07/27/22 15:11) (unknown) (no (unknown) (unknown) rosuvastatin 40 (units (unknown) date) mg tablet unknown) (Crestor) 40 mg PO DAILY 06/17/20 [History Confirmed (unknown) (no (unknown) (unknown) saw palmetto 500 (units (unknown) date) mg capsule 500 mg unknown) PO BID 06/17/20 [History Confirmed 07/27/22] (unknown) (no (unknown) (unknown) software. 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 errors (unknown) (no (unknown) (unknown) venom-honey bee (units (unknown) date) Allergy (Severe, unknown) Verified 07/27/22 15:11) Result panel 6 (unknown) (no (unknown) (unknown) (no value) (units (unk nown) date) unknown) (unknown) (no (unknown) (unknown) (Scale Score 1-3) (units (unknown) date) 06/17/20 [History unknown) Confirmed 07/27/22] (unknown) (no (unknown) (unknown) 07/27/22 (units (unkno wn) date) unknown) (unknown) (no (unknown) (unknown) 07/27/22] (units (unkn own) date) unknown) (unknown) (no (unknown) (unknown) [id number] (units (unkno wn) date) unknown) (unknown) (no (unknown) (unknown) 1. L4-L5 disc (units ( unknown) date) extrusion, causing unknown) compression of the left S1 nerve root as (unknown) (no (unknown) (unknown) 06/17/20 [History (units (unknown) date) Confirmed 07/27/22] unknown) (unknown) (no (unknown) (unknown) 16:18 (units (unkno wn) date) unknown) (unknown) (no (unknown) (unknown) Accompanied by: (units (unknown) date) Self / Same As unknown) Patient (unknown) (no (unknown) (unknown) Age/Sex: 72 / M (units (unknown) date) Date of Service: unknown) (unknown) (no (unknown) (unknown) All other systems (units (unknown) date) reviewed and are unknown) negative except as noted in HPI. (unknown) (no (unknown) (unknown) Allergies (units (unkn own) date) unknown) (unknown) (no (unknown) (unknown) [place] [address] (unit s (unknown) date) unknown) (unknown) (no (unknown) (unknown) Approved by: Lexa (unit s (unknown) date) Valente Garcia on unknown) 12/31/2019 at 14:25 (unknown) (no (unknown) (unknown) Assessment + Plan (units (unknown) date) unknown) (unknown) (no (unknown) (unknown) Attending Dr: (units ( unknown) date) Louis Rios D.O. unknown) (unknown) (no (unknown) (unknown) BMI 40.1 (units (unkno wn) date) unknown) (unknown) (no (unknown) (unknown) BP 124/78 (units (unkn own) date) unknown) (unknown) (no (unknown) (unknown) Blood Pressure (units (unknown) date) Location Rt brachial unknown) (unknown) (no (unknown) (unknown) COPD (chronic (units ( unknown) date) obstructive unknown) pulmonary disease) (unknown) (no (unknown) (unknown) Cardiovascular (units (unknown) date) disease unknown) (unknown) (no (unknown) (unknown) Confirmed 07/27/22] (unit s (unknown) date) unknown) (unknown) (no (unknown) (unknown) : 1950 (units (unknown) date) Acct:[id number] unknown) (unknown) (no (unknown) (unknown) DTR's symmetric. (units (unknown) date) unknown) (unknown) (no (unknown) (unknown) Daughter Weight (units (unknown) date) above 97th unknown) percentile (unknown) (no (unknown) (unknown) Denies recent (units ( unknown) date) trauma, fever or unknown) weight loss of unknown origin, immunocompromise (unknown) (no (unknown) (unknown) Dept at (units (unkno wn) date) . unknown) (unknown) (no (unknown) (unknown) Documented By: (units (unknown) date) Louis Rios D.O. unknown) 07/27/22 1511 (unknown) (no (unknown) (unknown) Draft (units (unkno wn) date) unknown) (unknown) (no (unknown) (unknown) Endorses history of (unit s (unknown) date) right nephrectomy, unknown) chronic atrial fibrillation on (unknown) (no (unknown) (unknown) Exam Narrative (units (unknown) date) unknown) (unknown) (no (unknown) (unknown) Exam Narrative: (units (unknown) date) unknown) (unknown) (no (unknown) (unknown) Exam (units (unkno wn) date) unknown) (unknown) (no (unknown) (unknown) Family History (units (unknown) date) (Reviewed 07/27/22 @ unknown) 16:33 by Louis Rios DO) (unknown) (no (unknown) (unknown) Gait: Full (units (unk nown) date) weightbearing. No unknown) assistive device. Stooped Gait Posture due to (unknown) (no (unknown) (unknown) General: The (units (u nknown) date) patient is in no unknown) obvious distress. Normal affect. Fully (unknown) (no (unknown) (unknown) H/O knee surgery (units (unknown) date) unknown) (unknown) (no (unknown) (unknown) H/O right (units (unkn own) date) nephrectomy unknown) (unknown) (no (unknown) (unknown) HERE FOR POST (units ( unknown) date) LUMBAR INJECTION unknown) (unknown) (no (unknown) (unknown) Height 5 ft 10 in (units (unknown) date) unknown) (unknown) (no (unknown) (unknown) Herniated nucleus (units (unknown) date) pulposus, L4-5 unknown) (unknown) (no (unknown) (unknown) History of chronic (units (unknown) date) atrial fibrillation unknown) (unknown) (no (unknown) (unknown) History of hernia (units (unknown) date) surgery unknown) (unknown) (no (unknown) (unknown) IMPRESSION: (units (un known) date) unknown) (unknown) (no (unknown) (unknown) Intake Clinical (units (unknown) date) Staff unknown) (unknown) (no (unknown) (unknown) Intake Note: (units (u nknown) date) unknown) (unknown) (no (unknown) (unknown) Intake performed (units (unknown) date) by: Elly Pollard unknown) (unknown) (no (unknown) (unknown) Intake (units (unkno wn) date) unknown) (unknown) (no (unknown) (unknown) Is patient in (units ( unknown) date) pain?: Yes (HERE FOR unknown) POST LUMBAR INJECTION) Pain scale (1-10): 5 (unknown) (no (unknown) (unknown) L1-L2: Mild disc (units (unknown) date) height loss and unknown) desiccation. Mild diffuse disc bulge. Mild (unknown) (no (unknown) (unknown) L2-L3: Mild disc (units (unknown) date) desiccation and unknown) diffuse disc bulge. Mild facet hypertrophy (unknown) (no (unknown) (unknown) L3-L4: Moderate disc (unit s (unknown) date) desiccation. Mild unknown) disc height loss. Mild diffuse disc bulge (unknown) (no (unknown) (unknown) L4-L5: Severe disc (units (unknown) date) loss and unknown) desiccation. Mild diffuse disc bulge. Mild facet (unknown) (no (unknown) (unknown) L5 disc (units (unkno wn) date) unknown) (unknown) (no (unknown) (unknown) L5-S1: Normal (units ( unknown) date) appearance. unknown) (unknown) (no (unknown) (unknown) Left Lower (units (unk nown) date) Extremity: No edema, unknown) joint effusion or atrophy. tenderness over the (unknown) (no (unknown) (unknown) Left Upper (units (unk nown) date) Extremity: Left unknown) upper extremity exam shows grossly normal alignment, (unknown) (no (unknown) (unknown) Loc: PAIN (units (unkn own) date) unknown) (unknown) (no (unknown) (unknown) Lumbosacral (units (un known) date) radiculopathy at L5 unknown) (unknown) (no (unknown) (unknown) MSK: System (units (un known) date) reviewed and no unknown) additional complaints, except as documented. (unknown) (no (unknown) (unknown) Medical History (units (unknown) date) (Reviewed 07/27/22 @ unknown) 16:33 by Louis Rios DO) (unknown) (no (unknown) (unknown) Medications (units (un known) date) unknown) (unknown) (no (unknown) (unknown) Mild canal (units (unk nown) date) stenosis. Mild unknown) bilateral foraminal stenosis. (unknown) (no (unknown) (unknown) NAUSEA (units (unkno wn) date) unknown) (unknown) (no (unknown) (unknown) Neuro: System (units ( unknown) date) reviewed and no unknown) additional complaints, except as documented. (unknown) (no (unknown) (unknown) Neurologic: (units (un known) date) Sensation is grossly unknown) intact to light touch throughout the upper and (unknown) (no (unknown) (unknown) Objective Data (units (unknown) date) unknown) (unknown) (no (unknown) (unknown) Objective Data: (units (unknown) date) unknown) (unknown) (no (unknown) (unknown) Orders (units (unkno wn) date) unknown) (unknown) (no (unknown) (unknown) Orders: (units (unkno wn) date) unknown) (unknown) (no (unknown) (unknown) Oxygen Delivery (units (unknown) date) Method room air unknown) (unknown) (no (unknown) (unknown) PAIN l/si facet (units (unknown) date) inj/blk 1stL Today unknown) 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 (unknown) (no (unknown) (unknown) Patient: (units (unkno wn) date) Agapito Hutchison MR#: unknown) [id number] (unknown) (no (unknown) (unknown) Position Sitting (units (unknown) date) unknown) (unknown) (no (unknown) (unknown) Pulse 79 (units (unkno wn) date) unknown) (unknown) (no (unknown) (unknown) Pulse Oximetry (%) (units (unknown) date) 98 unknown) (unknown) (no (unknown) (unknown) Pulse Source (units (u nknown) date) Monitor unknown) (unknown) (no (unknown) (unknown) READING STATION ID: (unit s (unknown) date) [id number] unknown) (unknown) (no (unknown) (unknown) ROS Narrative (units ( unknown) date) unknown) (unknown) (no (unknown) (unknown) ROS Narrative: (units (unknown) date) unknown) (unknown) (no (unknown) (unknown) ROS (units (unkno wn) date) unknown) (unknown) (no (unknown) (unknown) Reason For Visit (units (unknown) date) unknown) (unknown) (no (unknown) (unknown) Reviewed by: Lexa (unit s (unknown) date) Valente Garcia on unknown) 12/31/2019 at 14:22 (unknown) (no (unknown) (unknown) Right Lower (units (un known) date) Extremity: No edema, unknown) effusion or atrophy. tenderness over the (unknown) (no (unknown) (unknown) Right Upper (units (un known) date) Extremity: Right unknown) upper extremity exam shows grossly normal (unknown) (no (unknown) (unknown) SOB (units (unkno wn) date) unknown) (unknown) (no (unknown) (unknown) Shortness Of Breath (unit s (unknown) date) Or Wheezing 06/17/20 unknown) [History Confirmed 07/27/22] (unknown) (no (unknown) (unknown) Signed By: (units (unk nown) date) unknown) (unknown) (no (unknown) (unknown) Skin: No (units (unkno wn) date) significant skin unknown) lesions are noted. (unknown) (no (unknown) (unknown) Smoking Status: (units (unknown) date) Former smoker unknown) (unknown) (no (unknown) (unknown) Spine: Cervical (units (unknown) date) spine ROM unknown) functional. Lumbar spine ROM was reduced in all (unknown) (no (unknown) (unknown) Surgical History (units (unknown) date) (Reviewed 07/27/22 @ unknown) 16:33 by Louis Rios DO) (unknown) (no (unknown) (unknown) Temp 97.6 F (units (un known) date) unknown) (unknown) (no (unknown) (unknown) Temp Source (units (un known) date) Temporal Artery Scan unknown) (unknown) (no (unknown) (unknown) [facility] (unit [facility] (unknown) date) Management unknown) (unknown) (no (unknown) (unknown) There is mild (units ( unknown) date) posterior deviation unknown) of the left S1 nerve root secondary to the L4 (unknown) (no (unknown) (unknown) This note may have (units (unknown) date) been all or unknown) partially generated using voice recognition (unknown) (no (unknown) (unknown) Tobacco + Substance (unit s (unknown) date) Use unknown) (unknown) (no (unknown) (unknown) Tobacco Status (units (unknown) date) unknown) (unknown) (no (unknown) (unknown) Visit Reasons: (units (unknown) date) FOLLOW UP BILAT L4/5 unknown) TF DAVID, POST LUMBAR INJECTION (unknown) (no (unknown) (unknown) Vitals (units (unkno wn) date) unknown) (unknown) (no (unknown) (unknown) Weight 280 lb (units ( unknown) date) unknown) (unknown) (no (unknown) (unknown) [History Confirmed (units (unknown) date) 07/27/22] unknown) (unknown) (no (unknown) (unknown) acetaminophen 500 (units (unknown) date) mg tablet (Tylenol unknown) Extra Strength) 500 mg PO QID PRN Pain (unknown) (no (unknown) (unknown) albuterol sulfate (units (unknown) date) 90 mcg/actuation unknown) aerosol inhaler 2 puff inhalation Q6H PRN (unknown) (no (unknown) (unknown) alignment, range of (unit s (unknown) date) motion, strength and unknown) stability with no swelling, atrophy or (unknown) (no (unknown) (unknown) amitriptyline 50 mg (unit s (unknown) date) tablet 50 mg PO unknown) DAILY 10/15/21 [History Confirmed 07/27/22] (unknown) (no (unknown) (unknown) anticoagulation, (units (unknown) date) chronic progressive unknown) lumbar radiculopathy, pacemaker, history of (unknown) (no (unknown) (unknown) apixaban 5 mg tablet (unit s (unknown) date) (Eliquis) 5 mg PO unknown) BID 06/17/20 [History Confirmed 07/27/22] (unknown) (no (unknown) (unknown) ascorbic acid (units ( unknown) date) (vitamin C) 500 mg unknown) capsule mg PO 06/17/20 [History Confirmed (unknown) (no (unknown) (unknown) axial LBP (units (unkn own) date) unknown) (unknown) (no (unknown) (unknown) bilaterally. Mild (units (unknown) date) canal stenosis. unknown) Moderate subarticular foraminal stenosis (unknown) (no (unknown) (unknown) bilaterally. (units (u nknown) date) unknown) (unknown) (no (unknown) (unknown) canal stenosis. (units (unknown) date) Mild bilateral unknown) foraminal stenosis. (unknown) (no (unknown) (unknown) cilostazol 100 mg (units (unknown) date) tablet 100 mg PO BID unknown) 06/17/20 [History Confirmed 07/27/22] (unknown) (no (unknown) (unknown) described above. (units (unknown) date) Recommend unknown) correlation with clinical symptoms to ascertain (unknown) (no (unknown) (unknown) effusion. (units (unkn own) date) unknown) (unknown) (no (unknown) (unknown) extrusion. (units (unk nown) date) unknown) (unknown) (no (unknown) (unknown) facet and (units (unkn own) date) unknown) (unknown) (no (unknown) (unknown) flecainide 100 mg (units (unknown) date) tablet 50 mg PO Q12H unknown) 06/17/20 [History Confirmed 07/27/22] (unknown) (no (unknown) (unknown) gabapentin 600 mg (units (unknown) date) tablet 600 mg PO TID unknown) #270 tabs 02/08/22 [Rx Confirmed (unknown) (no (unknown) (unknown) greater (units (unkno wn) date) trochanteric region unknown) (unknown) (no (unknown) (unknown) greater (units (unkno wn) date) trochanteric region. unknown) (unknown) (no (unknown) (unknown) have occurred. If (units (unknown) date) there are any unknown) questions, please contact the Medical Records (unknown) (no (unknown) (unknown) hypertrophy (units (un known) date) unknown) (unknown) (no (unknown) (unknown) increased tenderness (unit s (unknown) date) with axial loading unknown) and extension based maneuvers tenderness (unknown) (no (unknown) (unknown) intravenous drug (units (unknown) date) use, sustained unknown) glucocorticoid use, osteoporosis, or a focal (unknown) (no (unknown) (unknown) left lateral (units (u nknown) date) unknown) (unknown) (no (unknown) (unknown) ligament flavum (units (unknown) date) upper tibia. Mild unknown) canal stenosis. Mild bilateral foraminal (unknown) (no (unknown) (unknown) losartan 100 (units (u nknown) date) mg-hydrochlorothiazi unknown) de 25 mg tablet 1 tab PO DAILY 01/19/22 (unknown) (no (unknown) (unknown) lower extremities. (units (unknown) date) motor 5/5 all LE unknown) muscle groups. Coordination appears normal. (unknown) (no (unknown) (unknown) mGy: (units (unkno wn) date) unknown) (unknown) (no (unknown) (unknown) may occur. (units (unk nown) date) Occasional unknown) wrong-word or 'sound-alike' substitutions may have (unknown) (no (unknown) (unknown) metoprolol (units (unk nown) date) succinate 100 mg unknown) tablet,extended release 24 hr 100 mg PO DAILY (unknown) (no (unknown) (unknown) neurological (units (u nknown) date) deficit with unknown) progressive or disabling symptoms. (unknown) (no (unknown) (unknown) non-Hodgkin's (units ( unknown) date) lymphoma, Hx of Tob unknown) use (unknown) (no (unknown) (unknown) occurred due to the (unit s (unknown) date) inherent limitations unknown) of voice recognition software. Please (unknown) (no (unknown) (unknown) or (units (unkno wn) date) immunosuppressive unknown) therapy, previous or current cancer diagnosis, history of (unknown) (no (unknown) (unknown) oriented. (units (unkn own) date) unknown) (unknown) (no (unknown) (unknown) pantoprazole 40 mg (units (unknown) date) tablet,delayed unknown) release 40 mg PO DAILY 06/17/20 [History (unknown) (no (unknown) (unknown) planes. On (units (unk nown) date) palpation, there is unknown) tenderness over the spinous processes. With (unknown) (no (unknown) (unknown) provocative (units (unk nown) date) maneuvers including unknown) sacra shear test as well as pelvic obliquity are (unknown) (no (unknown) (unknown) radiculopathy, (units (unknown) date) lumbar region unknown) (unknown) (no (unknown) (unknown) range of motion, (units (unknown) date) strength and unknown) stability with no swelling, atrophy or effusion. (unknown) (no (unknown) (unknown) read the note (units ( unknown) date) carefully and unknown) recognize, using context, where these substitutions (unknown) (no (unknown) (unknown) recess, and causing (unit s (unknown) date) compression and unknown) posterior deviation of the left S1 nerve (unknown) (no (unknown) (unknown) relevance of this (units (unknown) date) finding. unknown) (unknown) (no (unknown) (unknown) root. Mild (units (unk nown) date) unknown) (unknown) (no (unknown) (unknown) fortino Adverse (units (unknown) date) Reaction unknown) (Intermediate, Verified 07/27/22 15:11) (unknown) (no (unknown) (unknown) rosuvastatin 40 mg (units (unknown) date) tablet (Crestor) 40 unknown) mg PO DAILY 06/17/20 [History Confirmed (unknown) (no (unknown) (unknown) saw palmetto 500 mg (unit s (unknown) date) capsule 500 mg PO unknown) BID 06/17/20 [History Confirmed 07/27/22] (unknown) (no (unknown) (unknown) software. 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 (units (unkn own) date) unknown) (unknown) (no (unknown) (unknown) superimposed left (units (unknown) date) paracentral disc unknown) extrusion, extending inferiorly within the (unknown) (no (unknown) (unknown) to palpation on (units (unknown) date) paraspinals.straight unknown) leg raising negative bilaterally. Sacral (unknown) (no (unknown) (unknown) venom-honey bee (units (unknown) date) Allergy (Severe, unknown) Verified 07/27/22 15:11) (unknown) (no (unknown) (unknown) with (units (unkno wn) date) unknown) (unknown) (no (unknown) (unknown) within normal (units ( unknown) date) limits. unknown) Result panel 7 (unknown) (no (unknown) (unknown) (no value) (units (unk nown) date) unknown) (unknown) (no (unknown) (unknown) (1) Cardiovascular (units (unknown) date) disease: unknown) (unknown) (no (unknown) (unknown) (2) Pacemaker: (units (unknown) date) unknown) (unknown) (no (unknown) (unknown) (3) COPD (chronic (units (unknown) date) obstructive unknown) pulmonary disease): (unknown) (no (unknown) (unknown) (4) Lumbosacral (units (unknown) date) radiculopathy at L5: unknown) (unknown) (no (unknown) (unknown) (5) History of (units (unknown) date) chronic atrial unknown) fibrillation: (unknown) (no (unknown) (unknown) (6) Facet (units (unkn own) date) arthropathy, lumbar: unknown) (unknown) (no (unknown) (unknown) (7) H/O right (units ( unknown) date) nephrectomy: unknown) (unknown) (no (unknown) (unknown) (Scale Score 1-3) (units (unknown) date) 06/17/20 [History unknown) Confirmed 07/27/22] (unknown) (no (unknown) (unknown) 07/27/22 1638 (units ( unknown) date) unknown) (unknown) (no (unknown) (unknown) 07/27/22 (units (unkno wn) date) unknown) (unknown) (no (unknown) (unknown) 07/27/22] (units (unkn own) date) unknown) (unknown) (no (unknown) (unknown) [id number] (units (unkno wn) date) unknown) (unknown) (no (unknown) (unknown) 1. L4-L5 disc (units ( unknown) date) extrusion, causing unknown) compression of the left S1 nerve root as (unknown) (no (unknown) (unknown) 06/17/20 [History (units (unknown) date) Confirmed 07/27/22] unknown) (unknown) (no (unknown) (unknown) 16:18 (units (unkno wn) date) unknown) (unknown) (no (unknown) (unknown) Accompanied by: (units (unknown) date) Self / Same As unknown) Patient (unknown) (no (unknown) (unknown) Age/Sex: 72 / M (units (unknown) date) Date of Service: unknown) (unknown) (no (unknown) (unknown) All of his (units (unk nown) date) questions were unknown) answered to the best my ability is in agreement with (unknown) (no (unknown) (unknown) All other systems (units (unknown) date) reviewed and are unknown) negative except as noted in HPI. (unknown) (no (unknown) (unknown) Allergies (units (unkn own) date) unknown) (unknown) (no (unknown) (unknown) [place] [id number] (unit s (unknown) date) unknown) (unknown) (no (unknown) (unknown) Approved by: Lexa (unit s (unknown) date) Valente Garcia on unknown) 12/31/2019 at 14:25 (unknown) (no (unknown) (unknown) Assessment + Plan (units (unknown) date) unknown) (unknown) (no (unknown) (unknown) Attending Dr: (units ( unknown) date) Louis Rios D.O. unknown) (unknown) (no (unknown) (unknown) BMI 40.1 (units (unkno wn) date) unknown) (unknown) (no (unknown) (unknown) BP 124/78 (units (unkn own) date) unknown) (unknown) (no (unknown) (unknown) Blood Pressure (units (unknown) date) Location Rt brachial unknown) (unknown) (no (unknown) (unknown) COPD (chronic (units ( unknown) date) obstructive unknown) pulmonary disease) (unknown) (no (unknown) (unknown) COPD type: (units (unk nown) date) unspecified COPD unknown) Qualified Code(s): J44.9 - Chronic (unknown) (no (unknown) (unknown) Cardiovascular (units (unknown) date) disease unknown) (unknown) (no (unknown) (unknown) Chief Complaint (units (unknown) date) unknown) (unknown) (no (unknown) (unknown) Chief Complaint: (units (unknown) date) Follow-up bilateral unknown) L4-5 transforaminal DAVID 06/14/2022 (unknown) (no (unknown) (unknown) Confirmed 07/27/22] (unit s (unknown) date) unknown) (unknown) (no (unknown) (unknown) : 1950 (units (unknown) date) Acct:[id number] unknown) (unknown) (no (unknown) (unknown) DTR's symmetric. (units (unknown) date) unknown) (unknown) (no (unknown) (unknown) Daughter Weight (units (unknown) date) above 97th unknown) percentile (unknown) (no (unknown) (unknown) Denies recent (units ( unknown) date) trauma, fever or unknown) weight loss of unknown origin, immunocompromise (unknown) (no (unknown) (unknown) Agapito and I (units (u nknown) date) discussed at length unknown) his positive response with her L4-5 (unknown) (no (unknown) (unknown) Agapito is seen (units (unknown) date) today in follow-up unknown) status post bilateral L4-5 transforaminal DAVID (unknown) (no (unknown) (unknown) Dept at (units (unkno wn) date) . unknown) (unknown) (no (unknown) (unknown) Details: (units (unkno wn) date) unknown) (unknown) (no (unknown) (unknown) Documented By: (units (unknown) date) Louis Rios D.O. unknown) 07/27/22 1511 (unknown) (no (unknown) (unknown) Endorses history of (unit s (unknown) date) right nephrectomy, unknown) chronic atrial fibrillation on (unknown) (no (unknown) (unknown) Exam Narrative (units (unknown) date) unknown) (unknown) (no (unknown) (unknown) Exam Narrative: (units (unknown) date) unknown) (unknown) (no (unknown) (unknown) Exam (units (unkno wn) date) unknown) (unknown) (no (unknown) (unknown) Facet arthropathy, (units (unknown) date) lumbar unknown) (unknown) (no (unknown) (unknown) Family History (units (unknown) date) (Reviewed 07/27/22 @ unknown) 16:33 by Louis Rios DO) (unknown) (no (unknown) (unknown) Gait: Full (units (unk nown) date) weightbearing. No unknown) assistive device. Stooped Gait Posture due to (unknown) (no (unknown) (unknown) General: The (units (u nknown) date) patient is in no unknown) obvious distress. Normal affect. Fully (unknown) (no (unknown) (unknown) H/O knee surgery (units (unknown) date) unknown) (unknown) (no (unknown) (unknown) H/O right (units (unkn own) date) nephrectomy unknown) (unknown) (no (unknown) (unknown) HERE FOR POST (units ( unknown) date) LUMBAR INJECTION unknown) (unknown) (no (unknown) (unknown) HPI (units (unkno wn) date) unknown) (unknown) (no (unknown) (unknown) He reports (units (unk nown) date) otherwise feeling unknown) well maintain the Covid19 social restrictions (unknown) (no (unknown) (unknown) Height 5 ft 10 in (units (unknown) date) unknown) (unknown) (no (unknown) (unknown) Herniated nucleus (units (unknown) date) pulposus, L4-5 unknown) (unknown) (no (unknown) (unknown) History of chronic (units (unknown) date) atrial fibrillation unknown) (unknown) (no (unknown) (unknown) History of hernia (units (unknown) date) surgery unknown) (unknown) (no (unknown) (unknown) IMPRESSION: (units (un known) date) unknown) (unknown) (no (unknown) (unknown) Informed consent was (unit s (unknown) date) obtained today unknown) without guarantees or assurances of complete (unknown) (no (unknown) (unknown) Intake Clinical (units (unknown) date) Staff unknown) (unknown) (no (unknown) (unknown) Intake Note: (units (u nknown) date) unknown) (unknown) (no (unknown) (unknown) Intake performed (units (unknown) date) by: Elly Pollard unknown) (unknown) (no (unknown) (unknown) Intake (units (unkno wn) date) unknown) (unknown) (no (unknown) (unknown) Is patient in (units ( unknown) date) pain?: Yes (HERE FOR unknown) POST LUMBAR INJECTION) Pain scale (1-10): 5 (unknown) (no (unknown) (unknown) L1-L2: Mild disc (units (unknown) date) height loss and unknown) desiccation. Mild diffuse disc bulge. Mild (unknown) (no (unknown) (unknown) L2-L3: Mild disc (units (unknown) date) desiccation and unknown) diffuse disc bulge. Mild facet hypertrophy (unknown) (no (unknown) (unknown) L3-L4: Moderate disc (unit s (unknown) date) desiccation. Mild unknown) disc height loss. Mild diffuse disc bulge (unknown) (no (unknown) (unknown) L4-5 transforaminal (unit s (unknown) date) DAVID verses the unknown) translaminar DAVID and the previous (unknown) (no (unknown) (unknown) L4-L5: Severe disc (units (unknown) date) loss and unknown) desiccation. Mild diffuse disc bulge. Mild facet (unknown) (no (unknown) (unknown) L5 disc (units (unkno wn) date) unknown) (unknown) (no (unknown) (unknown) L5-S1: Normal (units ( unknown) date) appearance. unknown) (unknown) (no (unknown) (unknown) Left Lower (units (unk nown) date) Extremity: No edema, unknown) joint effusion or atrophy. tenderness over the (unknown) (no (unknown) (unknown) Left Upper (units (unk nown) date) Extremity: Left unknown) upper extremity exam shows grossly normal alignment, (unknown) (no (unknown) (unknown) Loc: PAIN (units (unkn own) date) unknown) (unknown) (no (unknown) (unknown) Lumbosacral (units (un known) date) radiculopathy at L5 unknown) (unknown) (no (unknown) (unknown) MSK: System (units (un known) date) reviewed and no unknown) additional complaints, except as documented. (unknown) (no (unknown) (unknown) Medical History (units (unknown) date) (Updated 07/27/22 @ unknown) 16:36 by Louis Rios DO) (unknown) (no (unknown) (unknown) Medications (units (un known) date) unknown) (unknown) (no (unknown) (unknown) Mild canal (units (unk nown) date) stenosis. Mild unknown) bilateral foraminal stenosis. (unknown) (no (unknown) (unknown) NAUSEA (units (unkno wn) date) unknown) (unknown) (no (unknown) (unknown) Neuro: System (units ( unknown) date) reviewed and no unknown) additional complaints, except as documented. (unknown) (no (unknown) (unknown) Neurologic: (units (un known) date) Sensation is grossly unknown) intact to light touch throughout the upper and (unknown) (no (unknown) (unknown) Objective Data (units (unknown) date) unknown) (unknown) (no (unknown) (unknown) Objective Data: (units (unknown) date) unknown) (unknown) (no (unknown) (unknown) Orders (units (unkno wn) date) unknown) (unknown) (no (unknown) (unknown) Orders: (units (unkno wn) date) unknown) (unknown) (no (unknown) (unknown) Oxygen Delivery (units (unknown) date) Method room air unknown) (unknown) (no (unknown) (unknown) PAIN l/si facet (units (unknown) date) inj/blk 1stL Today unknown) 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 (unknown) (no (unknown) (unknown) Patient: (units (unkno wn) date) Agapito Hutchison MR#: unknown) M00 (unknown) (no (unknown) (unknown) Plan (units (unkno wn) date) unknown) (unknown) (no (unknown) (unknown) Position Sitting (units (unknown) date) unknown) (unknown) (no (unknown) (unknown) Pulse 79 (units (unkno wn) date) unknown) (unknown) (no (unknown) (unknown) Pulse Oximetry (%) (units (unknown) date) 98 unknown) (unknown) (no (unknown) (unknown) Pulse Source (units (u nknown) date) Monitor unknown) (unknown) (no (unknown) (unknown) Qualifiers: (units (un known) date) unknown) (unknown) (no (unknown) (unknown) READING STATION ID: (unit s (unknown) date) [id number] unknown) (unknown) (no (unknown) (unknown) ROS Narrative (units ( unknown) date) unknown) (unknown) (no (unknown) (unknown) ROS Narrative: (units (unknown) date) unknown) (unknown) (no (unknown) (unknown) ROS (units (unkno wn) date) unknown) (unknown) (no (unknown) (unknown) Reason For Visit (units (unknown) date) unknown) (unknown) (no (unknown) (unknown) Reviewed by: Lexa (unit s (unknown) date) Valente Garcia on unknown) 12/31/2019 at 14:22 (unknown) (no (unknown) (unknown) Right Lower (units (un known) date) Extremity: No edema, unknown) effusion or atrophy. tenderness over the (unknown) (no (unknown) (unknown) Right Upper (units (un known) date) Extremity: Right unknown) upper extremity exam shows grossly normal (unknown) (no (unknown) (unknown) SOB (units (unkno wn) date) unknown) (unknown) (no (unknown) (unknown) Shortness Of Breath (unit s (unknown) date) Or Wheezing 06/17/20 unknown) [History Confirmed 07/27/22] (unknown) (no (unknown) (unknown) Signed By: (units (unk nown) date) <Electronically unknown) signed by Louis Rios D.O.> (unknown) (no (unknown) (unknown) Signed (units (unkno wn) date) unknown) (unknown) (no (unknown) (unknown) Skin: No (units (unkno wn) date) significant skin unknown) lesions are noted. (unknown) (no (unknown) (unknown) Smoking Status: (units (unknown) date) Former smoker unknown) (unknown) (no (unknown) (unknown) Spine: Cervical (units (unknown) date) spine ROM unknown) functional. Lumbar spine ROM was reduced in all (unknown) (no (unknown) (unknown) Status: Acute (units ( unknown) date) unknown) (unknown) (no (unknown) (unknown) Surgical History (units (unknown) date) (Reviewed 07/27/22 @ unknown) 16:33 by Louis Rios DO) (unknown) (no (unknown) (unknown) Temp 97.6 F (units (un known) date) unknown) (unknown) (no (unknown) (unknown) Temp Source (units (un known) date) Temporal Artery Scan unknown) (unknown) (no (unknown) (unknown) [facility] (unit s (unknown) date) Management unknown) (unknown) (no (unknown) (unknown) There is mild (units ( unknown) date) posterior deviation unknown) of the left S1 nerve root secondary to the L4 (unknown) (no (unknown) (unknown) This note may have (units (unknown) date) been all or unknown) partially generated using voice recognition (unknown) (no (unknown) (unknown) Tobacco + Substance (unit s (unknown) date) Use unknown) (unknown) (no (unknown) (unknown) Tobacco Status (units (unknown) date) unknown) (unknown) (no (unknown) (unknown) Visit Reasons: (units (unknown) date) FOLLOW UP BILAT L4/5 unknown) TF DAVID, POST LUMBAR INJECTION (unknown) (no (unknown) (unknown) Vitals (units (unkno wn) date) unknown) (unknown) (no (unknown) (unknown) We discussed the (units (unknown) date) above-stated unknown) procedure at length and verbal consent was (unknown) (no (unknown) (unknown) Weight 280 lb (units ( unknown) date) unknown) (unknown) (no (unknown) (unknown) [History Confirmed (units (unknown) date) 07/27/22] unknown) (unknown) (no (unknown) (unknown) above-stated plan. (units (unknown) date) unknown) (unknown) (no (unknown) (unknown) acetaminophen 500 (units (unknown) date) mg tablet (Tylenol unknown) Extra Strength) 500 mg PO QID PRN Pain (unknown) (no (unknown) (unknown) albuterol sulfate (units (unknown) date) 90 mcg/actuation unknown) aerosol inhaler 2 puff inhalation Q6H PRN (unknown) (no (unknown) (unknown) alignment, range of (unit s (unknown) date) motion, strength and unknown) stability with no swelling, atrophy or (unknown) (no (unknown) (unknown) amitriptyline 50 mg (unit s (unknown) date) tablet 50 mg PO unknown) DAILY 10/15/21 [History Confirmed 07/27/22] (unknown) (no (unknown) (unknown) and he reports (units (unknown) date) prominent relief unknown) from his bilateral lower extremity symptoms. He (unknown) (no (unknown) (unknown) anticoagulation, (units (unknown) date) chronic progressive unknown) lumbar radiculopathy, pacemaker, history of (unknown) (no (unknown) (unknown) apixaban 5 mg tablet (unit s (unknown) date) (Eliquis) 5 mg PO unknown) BID 06/17/20 [History Confirmed 07/27/22] (unknown) (no (unknown) (unknown) apixaban and (units (u nknown) date) subsequently will unknown) proceed with facet joint injections to (unknown) (no (unknown) (unknown) ascorbic acid (units ( unknown) date) (vitamin C) 500 mg unknown) capsule mg PO 06/17/20 [History Confirmed (unknown) (no (unknown) (unknown) axial LBP (units (unkn own) date) unknown) (unknown) (no (unknown) (unknown) ay occur. (units (unkn own) date) Occasional unknown) wrong-word or 'sound-alike' substitutions may have (unknown) (no (unknown) (unknown) bilaterally. Mild (units (unknown) date) canal stenosis. unknown) Moderate subarticular foraminal stenosis (unknown) (no (unknown) (unknown) bilaterally. (units (u nknown) date) unknown) (unknown) (no (unknown) (unknown) canal stenosis. (units (unknown) date) Mild bilateral unknown) foraminal stenosis. (unknown) (no (unknown) (unknown) cancer in (units (unkn own) date) [place]. unknown) (unknown) (no (unknown) (unknown) cilostazol 100 mg (units (unknown) date) tablet 100 mg PO BID unknown) 06/17/20 [History Confirmed 07/27/22] (unknown) (no (unknown) (unknown) decompression and (units (unknown) date) diskectomy at the unknown) L4-5 level.? He is currently assisting with (unknown) (no (unknown) (unknown) described above. (units (unknown) date) Recommend unknown) correlation with clinical symptoms to ascertain (unknown) (no (unknown) (unknown) discuss his history (unit s (unknown) date) of nephrectomy his unknown) underlying cardiovascular disease on (unknown) (no (unknown) (unknown) effusion. (units (unkn own) date) unknown) (unknown) (no (unknown) (unknown) extrusion. (units (unk nown) date) unknown) (unknown) (no (unknown) (unknown) facet and (units (unkn own) date) unknown) (unknown) (no (unknown) (unknown) flecainide 100 mg (units (unknown) date) tablet 50 mg PO Q12H unknown) 06/17/20 [History Confirmed 07/27/22] (unknown) (no (unknown) (unknown) gabapentin 600 mg (units (unknown) date) tablet 600 mg PO TID unknown) #270 tabs 02/08/22 [Rx Confirmed (unknown) (no (unknown) (unknown) greater (units (unkno wn) date) trochanteric region unknown) (unknown) (no (unknown) (unknown) greater (units (unkno wn) date) trochanteric region. unknown) (unknown) (no (unknown) (unknown) have occurred. If (units (unknown) date) there are any unknown) questions, please contact the Medical Records (unknown) (no (unknown) (unknown) hypertrophy (units (un known) date) unknown) (unknown) (no (unknown) (unknown) increased tenderness (unit s (unknown) date) with axial loading unknown) and extension based maneuvers tenderness (unknown) (no (unknown) (unknown) injury, stroke, (units (unknown) date) paralysis and unknown) and the patient elected to proceed. (unknown) (no (unknown) (unknown) intravenous drug (units (unknown) date) use, sustained unknown) glucocorticoid use, osteoporosis, or a focal (unknown) (no (unknown) (unknown) left lateral (units (u nknown) date) unknown) (unknown) (no (unknown) (unknown) ligament flavum (units (unknown) date) upper tibia. Mild unknown) canal stenosis. Mild bilateral foraminal (unknown) (no (unknown) (unknown) losartan 100 (units (u nknown) date) mg-hydrochlorothiazi unknown) de 25 mg tablet 1 tab PO DAILY 01/19/22 (unknown) (no (unknown) (unknown) lower extremities. (units (unknown) date) motor 5/5 all LE unknown) muscle groups. Coordination appears normal. (unknown) (no (unknown) (unknown) mGy: (units (unkno wn) date) unknown) (unknown) (no (unknown) (unknown) metoprolol (units (unk nown) date) succinate 100 mg unknown) tablet,extended release 24 hr 100 mg PO DAILY (unknown) (no (unknown) (unknown) most beneficial (units (unknown) date) today.? He would unknown) like to once again continue to avoid surgical (unknown) (no (unknown) (unknown) neurological (units (u nknown) date) deficit with unknown) progressive or disabling symptoms. (unknown) (no (unknown) (unknown) non-Hodgkin's (units ( unknown) date) lymphoma, Hx of Tob unknown) use (unknown) (no (unknown) (unknown) obstructive (units (un known) date) pulmonary disease, unknown) unspecified (unknown) (no (unknown) (unknown) obtained today, As (units (unknown) date) oral consent, we did unknown) review the risks of the above stated (unknown) (no (unknown) (unknown) occurred due to the (unit s (unknown) date) inherent limitations unknown) of voice recognition software. Please (unknown) (no (unknown) (unknown) or (units (unkno wn) date) immunosuppressive unknown) therapy, previous or current cancer diagnosis, history of (unknown) (no (unknown) (unknown) oriented. (units (unkn own) date) unknown) (unknown) (no (unknown) (unknown) pantoprazole 40 mg (units (unknown) date) tablet,delayed unknown) release 40 mg PO DAILY 06/17/20 [History (unknown) (no (unknown) (unknown) performed on (units (u nknown) date) 06/14/2022. Agapito unknown) reports no difficulty with the procedure itself (unknown) (no (unknown) (unknown) planes. On (units (unk nown) date) palpation, there is unknown) tenderness over the spinous processes. With (unknown) (no (unknown) (unknown) procedure including (units (unknown) date) not limited to unknown) bleeding, infection, allergic reaction, nerve (unknown) (no (unknown) (unknown) provocative (units (unk nown) date) maneuvers including unknown) sacra shear test as well as pelvic obliquity are (unknown) (no (unknown) (unknown) radicular features. (unit s (unknown) date) He does persist with unknown) some left-sided axial low back pain (unknown) (no (unknown) (unknown) radiculopathy, (units (unknown) date) lumbar region unknown) (unknown) (no (unknown) (unknown) range of motion, (units (unknown) date) strength and unknown) stability with no swelling, atrophy or effusion. (unknown) (no (unknown) (unknown) read the note (units ( unknown) date) carefully and unknown) recognize, using context, where these substitutions (unknown) (no (unknown) (unknown) recess, and causing (unit s (unknown) date) compression and unknown) posterior deviation of the left S1 nerve (unknown) (no (unknown) (unknown) relevance of this (units (unknown) date) finding. unknown) (unknown) (no (unknown) (unknown) relief applied. (units (unknown) date) Will complete unknown) written consent on the day of the procedure. (unknown) (no (unknown) (unknown) reports he was in (units (unknown) date) his usual state unknown) health until recently when he developed left (unknown) (no (unknown) (unknown) root. Mild (units (unk nown) date) unknown) (unknown) (no (unknown) (unknown) fortino Adverse (units (unknown) date) Reaction unknown) (Intermediate, Verified 07/27/22 15:11) (unknown) (no (unknown) (unknown) rosuvastatin 40 mg (units (unknown) date) tablet (Crestor) 40 unknown) mg PO DAILY 06/17/20 [History Confirmed (unknown) (no (unknown) (unknown) saw palmetto 500 mg (unit s (unknown) date) capsule 500 mg PO unknown) BID 06/17/20 [History Confirmed 07/27/22] (unknown) (no (unknown) (unknown) sided L5-S1 (units (un known) date) transforaminal DAVID unknown) was more beneficial form than this recent (unknown) (no (unknown) (unknown) sided axial low (units (unknown) date) back pain. He would unknown) like to pursue further treatment at this (unknown) (no (unknown) (unknown) significant offset (units (unknown) date) his symptoms in a unknown) nonsurgical fashion. (unknown) (no (unknown) (unknown) software. 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 (units (unkn own) date) unknown) (unknown) (no (unknown) (unknown) stopped using the (units (unknown) date) medication.? unknown) Additionally he reports that the previous left (unknown) (no (unknown) (unknown) superimposed left (units (unknown) date) paracentral disc unknown) extrusion, extending inferiorly within the (unknown) (no (unknown) (unknown) the cares of his (units (unknown) date) who is unknown) undergoing treatment for her stage IV pancreatic (unknown) (no (unknown) (unknown) the previous use of (unit s (unknown) date) gabapentin unknown) subsequently has not been beneficial and he has (unknown) (no (unknown) (unknown) this likely (units (un known) date) associated with the unknown) facet joints at L3-4, L4-5 and L5-S1. We did (unknown) (no (unknown) (unknown) time to significant (units (unknown) date) offset his symptoms unknown) in a nonsurgical fashion. He does report (unknown) (no (unknown) (unknown) to palpation on (units (unknown) date) paraspinals.straight unknown) leg raising negative bilaterally. Sacral (unknown) (no (unknown) (unknown) transforaminal DAVID (units (unknown) date) and as stated the unknown) left-sided L5-S1 transforaminal DAVID was the (unknown) (no (unknown) (unknown) transforaminal DAVID (units (unknown) date) is performed on unknown) 06/14/2022 with good resolution of his lumbar (unknown) (no (unknown) (unknown) translaminar DAVID.? (units (unknown) date) We did review his unknown) previous injections including a left-sided (unknown) (no (unknown) (unknown) venom-honey bee (units (unknown) date) Allergy (Severe, unknown) Verified 07/27/22 15:11) (unknown) (no (unknown) (unknown) with (units (unkno wn) date) unknown) (unknown) (no (unknown) (unknown) within normal (units ( unknown) date) limits. unknown) (unknown) (no (unknown) (unknown) without cough fever (unit s (unknown) date) fatigue at this unknown) time.? He has been fully vaccinated. Result panel 8 (unknown) (no (unknown) (unknown) (no value) (units (unk nown) date) unknown) (unknown) (no (unknown) (unknown) [id number] (units (unkno wn) date) unknown) (unknown) (no (unknown) (unknown) 08/04/22 (units (unkno wn) date) unknown) (unknown) (no (unknown) (unknown) [address] (units (unknown) date) unknown) (unknown) (no (unknown) (unknown) 14:46. (units (unkno wn) date) unknown) (unknown) (no (unknown) (unknown) Accession Number: (units (unknown) date) [id number] unknown) (unknown) (no (unknown) (unknown) Age/Sex: 72 / M (units (unknown) date) Date of Service: unknown) (unknown) (no (unknown) (unknown) [place] (units ( unknown) date) [id number] unknown) (unknown) (no (unknown) (unknown) Approved by: (units (u nknown) date) Hunter Licona, unknown) Valente on 08/04/2022 at 11:46 (unknown) (no (unknown) (unknown) COMPARISON: (units (un known) date) [facility], unknown) XA, PAIN L/S TRANSFORAM INJECT PIPO, 06/14/2022, (unknown) (no (unknown) (unknown) : 1950 (units (unknown) date) Acct:[id number] unknown) (unknown) (no (unknown) (unknown) Dictated by: (units (u nknown) date) Hunter Licona, susan) Valente on 08/04/2022 at 11:43 (unknown) (no (unknown) (unknown) FINDINGS: (units (unkn own) date) unknown) (unknown) (no (unknown) (unknown) Fluoroscopic spot (units (unknown) date) filming was unknown) performed to verify placement of spinal needles (unknown) (no (unknown) (unknown) IMPRESSION: (units (un known) date) Intraprocedural unknown) examination demonstrating appropriate positions of (unknown) (no (unknown) (unknown) INDICATIONS: (units (u nknown) date) SPONDYLOSIS unknown) (unknown) (no (unknown) (unknown) [facility] (units (unknown) date) unknown) (unknown) (no (unknown) (unknown) Loc: RAD (units (unkno wn) date) unknown) (unknown) (no (unknown) (unknown) Ordering (units (unkno wn) date) Provider: unknown) Louis Rios D.O. (unknown) (no (unknown) (unknown) PROCEDURE: PAIN (units (unknown) date) L/SI FACET INJ/BLK unknown) 1STL (unknown) (no (unknown) (unknown) Patient: (units (unkno wn) date) Agapito Hutchison unknown) MR#: [id number] (unknown) (no (unknown) (unknown) Procedure: PAIN (units (unknown) date) l/si facet inj/blk unknown) 1stL (unknown) (no (unknown) (unknown) Signed (units (unkno wn) date) unknown) (unknown) (no (unknown) (unknown) XRay Report (units (un known) date) unknown) (unknown) (no (unknown) (unknown) at the L3-L4, (units ( unknown) date) L4-L5, and L5-S1 unknown) levels, as labeled on the films. Appropriate (unknown) (no (unknown) (unknown) location of (units (un known) date) unknown) (unknown) (no (unknown) (unknown) needles. (units (unkno wn) date) unknown) (unknown) (no (unknown) (unknown) on the left (units (un known) date) unknown) (unknown) (no (unknown) (unknown) the needle tips (units (unknown) date) was confirmed by unknown) injection of iodinated contrast. (unknown) (no (unknown) (unknown) the (units (unkno wn) date) unknown) Result panel 9 (unknown) (no (unknown) (unknown) (no value) (units (unk nown) date) unknown) (unknown) (no (unknown) (unknown) 0.25cc (units (unkno wn) date) betamethasone was unknown) injected without complication into each of the (unknown) (no (unknown) (unknown) 08/04/22 1051 (units ( unknown) date) unknown) (unknown) (no (unknown) (unknown) [id number] (units (unkno wn) date) unknown) (unknown) (no (unknown) (unknown) 1% lidocaine (units (u nknown) date) solution into the unknown) corresponding facet joints. At this point, a 22 (unknown) (no (unknown) (unknown) 1. (units (unkno wn) date) FLUOROSCOPICALLY unknown) GUIDED CONTRAST CONTROLLED FACET JOINT INJECTIONS LEFT (unknown) (no (unknown) (unknown) 2. AXIAL LBP, (units ( unknown) date) unknown) (unknown) (no (unknown) (unknown) 3. MULTILEVEL DDD (units (unknown) date) unknown) (unknown) (no (unknown) (unknown) After review of (units (unknown) date) previous unknown) anaesthesic history and IV conscious sedation the (unknown) (no (unknown) (unknown) Age/Sex: 72 / M (units (unknown) date) unknown) (unknown) (no (unknown) (unknown) At this point, a (units (unknown) date) total of 0.5cc unknown) including a mixture of 0.25cc Marcaine and (unknown) (no (unknown) (unknown) Complications: (units (unknown) date) none unknown) (unknown) (no (unknown) (unknown) DESCRIPTION OF (units (unknown) date) PROCEDURE unknown) (unknown) (no (unknown) (unknown) : 1950 (units (unknown) date) Acct:[id number] unknown) (unknown) (no (unknown) (unknown) Date of Service: (units (unknown) date) 08/04/22 unknown) (unknown) (no (unknown) (unknown) Date of procedure: (units (unknown) date) 08/04/22 unknown) (unknown) (no (unknown) (unknown) Date/Time/Diagnose (units (unknown) date) s unknown) (unknown) (no (unknown) (unknown) Agapito is referred (units (unknown) date) by [facility] for unknown) treatment of Axial LBP (unknown) (no (unknown) (unknown) FINDINGS (units (unkno wn) date) unknown) (unknown) (no (unknown) (unknown) Fluoroscopically (units (unknown) date) guided, unknown) contrast-controlled left L3/4, L4/5, L5/S1 facet joint (unknown) (no (unknown) (unknown) Following review (units (unknown) date) of allergy and unknown) review of potential side effects and (unknown) (no (unknown) (unknown) In the prone (units (u nknown) date) position, following unknown) sterile prep and drape of the lumbar region, (unknown) (no (unknown) (unknown) Indications: (units (u nknown) date) unknown) (unknown) (no (unknown) (unknown) [facility] (units (unknown) date) [address] unknown) [place] [address] (unknown) (no (unknown) (unknown) L3/4, L4/5, L5/S1 (units (unknown) date) unknown) (unknown) (no (unknown) (unknown) Multilevel Facet (units (unknown) date) Arthropathy with unknown) Clinically significant axial LBP (unknown) (no (unknown) (unknown) POST OP (units (unkno wn) date) INSTRUCTIONS unknown) (unknown) (no (unknown) (unknown) Patient: (units (unkno wn) date) Agapito Hutchison unknown) MR#: [id number] (unknown) (no (unknown) (unknown) Physician: Louis (units (unknown) date) Blanca unknown) (unknown) (no (unknown) (unknown) Post-procedure (units (unknown) date) diagnosis: same unknown) (unknown) (no (unknown) (unknown) Pre-procedure (units ( unknown) date) diagnosis: 1. FACET unknown) ARTHROPATHY, (unknown) (no (unknown) (unknown) Procedure Note (units (unknown) date) unknown) (unknown) (no (unknown) (unknown) Procedure Notes (units (unknown) date) unknown) (unknown) (no (unknown) (unknown) Procedure in (units (u nknown) date) detail + unknown) Post-procedure care: (unknown) (no (unknown) (unknown) Procedure: (units (unk nown) date) unknown) (unknown) (no (unknown) (unknown) Provider: (units (unkn own) date) Louis Rios D.O. unknown) (unknown) (no (unknown) (unknown) Radiological data, (units (unknown) date) including multiple unknown) fluoroscopic views of the lumbosacral (unknown) (no (unknown) (unknown) Signed (units (unkno wn) date) By:<Electronically unknown) signed by Louis Rios D.O.> (unknown) (no (unknown) (unknown) The patient was (units (unknown) date) provided a Pain Log unknown) to continue to record their response to the (unknown) (no (unknown) (unknown) The patient was (units (unknown) date) then transferred to unknown) the recovery area where they were observed (unknown) (no (unknown) (unknown) The procedure (units ( unknown) date) tolerated the unknown) procedure well without signs or symptoms of (unknown) (no (unknown) (unknown) Time of procedure: (units (unknown) date) 10:48 unknown) (unknown) (no (unknown) (unknown) Total Fluoroscopy (units (unknown) date) time (seconds): 8 unknown) (unknown) (no (unknown) (unknown) Total sedation (units (unknown) date) minutes: 11 unknown) (unknown) (no (unknown) (unknown) VAS score of 7 (units (unknown) date) prior to the unknown) procedure and a post-procedure VAS of 0. (unknown) (no (unknown) (unknown) accomplished with (units (unknown) date) a combination of unknown) 2mg of Versed was administered by the RN (unknown) (no (unknown) (unknown) after DO order, (units (unknown) date) titrated to patient unknown) comfort during the course of the procedure (unknown) (no (unknown) (unknown) and agreed to (units ( unknown) date) proceed. An unknown) informed consent document was signed by the patient, (unknown) (no (unknown) (unknown) aspiration, (units (un known) date) injections of unknown) approximately 0.2-cc of Isovue 200 confirmed (unknown) (no (unknown) (unknown) complications (units ( unknown) date) associated with the unknown) procedure are suspected. (unknown) (no (unknown) (unknown) complications (units ( unknown) date) prior to transfer unknown) to the recovery area continued monitoring (unknown) (no (unknown) (unknown) complications, (units (unknown) date) including, but not unknown) necessarily limited to, infection, allergic (unknown) (no (unknown) (unknown) corresponding (units ( unknown) date) facet joints. unknown) (unknown) (no (unknown) (unknown) fluoroscopic (units (u nknown) date) guidance into the unknown) corresponding facet joints. Following negative (unknown) (no (unknown) (unknown) fluoroscopically. (units (unknown) date) The skin was unknown) anesthetized via a 25-gauge 1.5-inch needle with (unknown) (no (unknown) (unknown) for an appropriate (units (unknown) date) period of time unknown) after the injection. The patient reported a (unknown) (no (unknown) (unknown) gauge 3.5-inch (units (unknown) date) spinal needle was unknown) atraumatically introduced and advanced under (unknown) (no (unknown) (unknown) injections. (units (un known) date) unknown) (unknown) (no (unknown) (unknown) interarticular (units (unknown) date) placement without unknown) vascular uptake. (unknown) (no (unknown) (unknown) number to our (units ( unknown) date) office were unknown) provided if concerns arise regarding possible (unknown) (no (unknown) (unknown) paralysis, and (units ( unknown) date) possible , the unknown) patient indicated that the patient understood (unknown) (no (unknown) (unknown) patient ID, (units (un known) date) procedure to be unknown) performed and site of procedure. IV sedation was (unknown) (no (unknown) (unknown) patient was deemed (units (unknown) date) safe to proceed unknown) with today?s procedure with IV conscious (unknown) (no (unknown) (unknown) physician. (units (unkn own) date) Additionally, unknown) specific post-injection care instructions and a contact (unknown) (no (unknown) (unknown) reaction, local (units (unknown) date) tissue breakdown, unknown) stroke, temporary or permanent nerve injury, (unknown) (no (unknown) (unknown) reviewed with the (units (unknown) date) patient. unknown) (unknown) (no (unknown) (unknown) sedation as ASA (units (unknown) date) class II unknown) designation. Safety time-out was performed to confirm (unknown) (no (unknown) (unknown) sequent views show (units (unknown) date) flow of contrast unknown) material both superiorly and inferiorly (unknown) (no (unknown) (unknown) spine, reveal a (units (unknown) date) spinal needle at unknown) the left L3/4, L4/5, L5/S1 facet joints. Sub (unknown) (no (unknown) (unknown) target-specific (units (unknown) date) procedure prior to unknown) follow-up visit with their referring (unknown) (no (unknown) (unknown) the posterior (units ( unknown) date) aspect of the left unknown) L3/4, L4/5, L5/S1 facet joints were identified (unknown) (no (unknown) (unknown) treatment options (units (unknown) date) including unknown) medications, modalities, and physical therapy were (unknown) (no (unknown) (unknown) while the patient (units (unknown) date) remained responsive unknown) to all verbal commands. (unknown) (no (unknown) (unknown) within the joint (units (unknown) date) space without unknown) vascular or intrathecal uptake. (unknown) (no (unknown) (unknown) without incident. (units (unknown) date) unknown) (unknown) (no (unknown) (unknown) witnessed by a (units (unknown) date) nurse, and placed unknown) in the patient's chart. Additionally, other Social History date description facility 2022-07-27 00:00 Ex-smoker (finding) [facility] Vital Signs date measurement value units 2022-06-14 00:00 BP_diastolic 62 mmHg 2022-06-14 00:00 BP_systolic 98 mmHg 2022-06-14 00:00 heart_rate 68 /min 2022-06-14 00:00 o2_saturation 96 % 2022-06-14 00:00 respiration_rate 12 /min 2022-06-14 00:00 temperature_metric 36.78 C 2022-06-14 00:00 temperature_standard 98.2 F 2022-07-27 00:00 BMI 40.1 kg/m2 2022-07-27 00:00 BP_diastolic 78 mmHg 2022-07-27 00:00 BP_systolic 124 mmHg 2022-07-27 00:00 heart_rate 79 /min 2022-07-27 00:00 height_metric 177.8 cm 2022-07-27 00:00 height_standard 70 in 2022-07-27 00:00 o2_saturation 98 % 2022-07-27 00:00 temperature_metric 36.44 C 2022-07-27 00:00 temperature_standard 97.6 F 2022-07-27 00:00 weight_metric 127 kg 2022-07-27 00:00 weight_standard 279.99 lb 2022-08-04 00:00 BP_diastolic 56 mmHg 2022-08-04 00:00 BP_systolic 103 mmHg 2022-08-04 00:00 heart_rate 65 /min 2022-08-04 00:00 o2_saturation 98 % 2022-08-04 00:00 respiration_rate 18 /min 2022-08-04 00:00 temperature_metric 36.33 C 2022-08-04 00:00 temperature_standard 97.4 F
--- NOTE | 2022-09-05 11:40 | ED Physician Documentation ---
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 He was sent over from the [facility] [place] [facility] where he was having a routine visit today because his blood pressure was 90s over 60s. He notes that over the last year he has had daily episodes where he feels like he gets tunnel vision. He is never passed out, and there is no specific pattern to the dizzy episodes. That said he does note he gets it reliably if he reaches over his head for the pressure cooker on the top of the refrigerator. He denies any increase in breathing issues, no chest pain, no pedal edema or calf pain, no dark or tarry stools. PD PAST MEDICAL HISTORY - Past Medical History Past Medical History: Yes Cardiovascular: Hypertension, High cholesterol, Peripheral Vascular Disease, Atrial fibrillation, Other Respiratory: COPD Neuro: None Endocrine/Autoimmune: None GI: GI bleed, Ulcers, Hemorrhoids : None HEENT: None Psych: None Musculoskeletal: Osteoarthritis, Chronic back pain Derm: None - Past Surgical History Past Surgical History: Yes General: Colonoscopy, EGD, Other Ortho: Arthroscopic surgery Cardiovascular: Pacemaker, Angioplasty HEENT: Tonsil/Adenoidectomy - Present Medications Home Medications: Ambulatory Orders Medication Instructions Recorded Confirmed Ascorbic Acid [Vitamin C] 1,000 mg PO DAILY 04/04/18 03/21/22 Cyanocobalamin (Vitamin B-12) 1,000 mcg PO DAILY 04/04/18 03/21/22 [Vitamin B-12] Losartan/Hydrochlorothiazide 25 mg PO DAILY 04/04/18 09/05/22 [Losartan-Hctz 100-25 mg Tab] Multivitamin [Theragran] 1 tab PO DAILY 04/04/18 09/05/22 Saw [place] 160 mg PO DAILY 04/19/18 09/05/22 Pantoprazole [Protonix] 40 mg PO DAILY 08/16/18 09/05/22 Apixaban [Eliquis] 5 mg PO DAILY 10/08/18 03/21/22 Flecainide [Tambocar] 200 mg PO BID 03/18/19 09/05/22 Metoprolol Succinate [Toprol Xl] 50 mg PO BID 03/18/19 09/05/22 Rosuvastatin Calcium 40 mg PO DAILY 03/18/19 09/05/22 - Allergies Allergies/Adverse Reactions: Allergies Allergy/AdvReac Type Severity Reaction Status Date / Time fortino Allergy Severe Syncope Verified 09/05/22 10:50 bee venom protein (honey bee) Allergy Edema Verified 09/05/22 10:50 - Social History Does the pt smoke?: No Smoking Status: Former smoker Does the pt drink ETOH?: No Does the pt have substance abuse?: No - Immunizations Immunizations are current?: Yes - POLST Patient has POLST: No POLST Status: Full Code PD ED PE NORMAL - Vitals Vital signs reviewed: Yes - General General: Alert and oriented X 3, No acute distress - HEENT HEENT: PERRL, EOMI - Neck Neck: Supple, no meningeal sign, No bony TTP - Cardiac Cardiac: RRR, No murmur, Other (He is in sinus rhythm on the monitor. He does not know when he was last in A-fib.) - Respiratory Respiratory: No respiratory distress, Clear bilaterally - Abdomen Abdomen: Normal bowel sounds, Soft, Non tender - Back Back: No CVA TTP, No spinal TTP - Derm Derm: Normal color, Warm and dry - Extremities Extremities: No edema, No calf tenderness / cord - Neuro Neuro: Alert and oriented X 3, Normal speech Results - Vitals Vitals: Vital Signs - 24 hr 09/05/22 09/05/22 09/05/22 10:43 11:15 11:56 Temperature 36.4 C L Heart Rate 73 68 Heart Rate [ 72 Sitting] Heart Rate [ 75 Standing] Heart Rate [ 66 Supine] Respiratory 14 16 Rate Blood Pressure 130/71 134/83 H Blood Pressure 95/72 [Sitting] Blood Pressure 106/67 [Standing] Blood Pressure 110/76 [Supine] O2 Saturation 97 97 Oxygen O2 Source Room air - EKG (time done) 1052 Rate: Rate (enter#) (71) Rhythm: NSR [place]: Normal Intervals: Prolonged CT, Other (IVCD) QRS: Low voltage Ischemia: Non specific changes. No: ST elevation c/w ischemia, ST depression - Labs Labs: Laboratory Tests 09/05/22 09/05/22 11:41 11:41 WBC 5.2 RBC 4.63 L Hgb 13.3 L Hct 39.8 L MCV 86.0 MCH 28.7 MCHC 33.4 RDW 14.5 Plt Count 232 MPV 8.8 Neut # (Auto) 3.2 Lymph # (Auto) 1.1 L [place] # (Auto) 0.6 Eos # (Auto) 0.2 Baso # (Auto) 0.0 Absolute Nucleated RBC 0.00 Nucleated RBC % 0.0 Sodium 136 Potassium 3.9 Chloride 99 L Carbon Dioxide 30 Anion Gap 7.0 BUN 19 Creatinine 1.1 Estimated GFR (MDRD) 65 L Glucose 282 H Calcium 9.4 Magnesium 2.2 Total Bilirubin 0.8 AST 22 ALT 36 Alkaline Phosphatase 84 Total Protein 6.8 Albumin 3.5 Globulin 3.3 Albumin/Globulin Ratio 1.1 PD Medical Decision Making - ED course ED course: 72-year-old gentleman with history of GI bleeds and anticoagulated placed presents with longstanding dizziness most consistent with orthostasis. He is on a diuretic. CBC reviewed with mild anemia that is stable from his baseline. Otherwise negative. CMP reviewed, only really notable for hyperglycemia 282. He had about an 10 point increase in heart rate on orthostatic testing. Suspect cessation of his diuretic will be helpful for him. We also discussed the hyperglycemia and need for follow-up for that. Departure - Departure Disposition: 01 Home, Self Care Clinical Impression: Near syncope, Transient hypotension, Hyperglycemia Condition: Stable Record reviewed to determine appropriate education?: Yes Instructions: ED Near Syncope Unkn Comments: Your blood pressure was normal here, your heart rate did go up slightly on standing which might suggest some level of dehydration. Your labs were okay with the exception of a blood sugar of 282 which certainly needs to be monitored. What I would recommend is that you stop your losartan/hydrochlorothiazide and check your blood pressure daily and keeping a log and then follow-up with your doctor late this week or early next week for recheck. Return for new or worsening symptoms. Since the hydrochlorothiazide is a diuretic, the mild dehydration should be resolved with the cessation of that. Discharge Date/Time: 09/05/22 12:30
[2022-09-05 11:46] LABS: BASOPHILS % (AUTO) 0.6 %; EOSINOPHILS # (AUTO) 0.2 10^3/uL (0.0-0.7); EOSINOPHILS % (AUTO) 3.7 %; HCT - HEMATOCRIT 39.8 % (42.0-52.0); HGB - HEMOGLOBIN 13.3 g/dL (14.0-18.0); LYMPHOCYTES # (AUTO) 1.1 10^3/uL (1.5-3.5); LYMPHOCYTES % (AUTO) 20.8 %; MEAN CORPUSCULAR HEMOGLOBIN 28.7 pg (27.0-31.0); MEAN CORPUSCULAR HGB CONC 33.4 g/dL (32.0-36.0); MEAN PLATELET VOLUME 8.8 fL (7.4-11.4); MONOCYTES # (AUTO) 0.6 10^3/uL (0.0-1.0); MONOCYTES % (AUTO) 12.3 %; NEUTROPHILS # (AUTO) 3.2 10^3/uL (1.5-6.6); NEUTROPHILS % (AUTO) 61.6 %; PLT - PLATELET COUNT 232 10^3/uL (130-450); RED BLOOD COUNT 4.63 10^6/uL (4.70-6.10); RED CELL DISTRIBUTION WIDTH 14.5 % (12.0-15.0); WHITE BLOOD COUNT 5.2 x10^3/uL (4.8-10.8)
[2022-09-05 11:57] VITALS: BP 110/76
[2022-09-05 11:58] LABS: ALBUMIN 3.5 g/dL (3.2-5.5); ALBUMIN/GLOBULIN RATIO 1.1 (1.0-2.2); BILIRUBIN,TOTAL 0.8 mg/dL (0.2-1.0); CALCIUM 9.4 mg/dL (8.5-10.3); CREATININE 1.1 mg/dL (0.6-1.2); MAGNESIUM 2.2 mg/dL (1.7-2.8); POTASSIUM 3.9 mmol/L (3.5-5.0); TOTAL PROTEIN 6.8 g/dL (6.7-8.2)
== END 2022-09-05 12:30 | disposition home or self-care (01) ==
LOC: ED 10:27
DX: R55 Syncope and collapse (principal); I95.89 Other hypotension; R73.9 Hyperglycemia, unspecified; I10 Essential (primary) hypertension; E78.00 Pure hypercholesterolemia, unspecified; I73.9 Peripheral vascular disease, unspecified; J44.9 Chronic obstructive pulmonary disease, unspecified; I48.91 Unspecified atrial fibrillation; Z85.528 Personal history of other malignant neoplasm of kidney; Z79.01 Long term (current) use of anticoagulants; Z79.899 Other long term (current) drug therapy; Z87.891 Personal history of nicotine dependence
CPT/HCPCS: 36415; 80053; 83735; 85025; 93005; 99283

== ENCOUNTER 2022-10-06 07:19 | Day surgery (SDC) | payer MEDICARE, OTHER ==
[2022-10-06] MEDS ORDERED: LACTATED RINGERS 1,000 ML IV ONE ×2 (07:45→09:05)
--- NOTE | 2022-10-06 08:27 | ANESTHESIA ---
Pre-Anesthesia VS, & Labs - Diagnosis gastric lymphoma - Procedure EGD Vital Signs: Temp Pulse Resp BP Pulse Ox O2 Flow Rate 36 C L 68 24 148/91 H 99 10/06/22 07:41 10/06/22 07:41 10/06/22 07:41 10/06/22 07:41 10/06/22 07:41 Height: 5 ft 10 in Weight (kg): 123 kg Body Mass Index: 38.9 BMI Classification: Obese - NPO >8 hours Home Medications and Allergies Ascorbic Acid [Vitamin C] 1,000 mg PO DAILY 04/04/18 Cyanocobalamin (Vitamin B-12) [Vitamin B-12] 1,000 mcg PO DAILY 04/04/18 Multivitamin [Theragran] 1 tab PO DAILY 04/04/18 Saw [place] 160 mg PO DAILY 04/19/18 Pantoprazole [Protonix] 40 mg PO DAILY 08/16/18 Apixaban [Eliquis] 5 mg PO DAILY 10/08/18 Flecainide [Tambocar] 200 mg PO BID 03/18/19 Metoprolol Succinate [Toprol Xl] 50 mg PO BID 03/18/19 Rosuvastatin Calcium 40 mg PO DAILY 03/18/19 Allergies/Adverse Reactions: Allergies Allergy/AdvReac Type Severity Reaction Status Date / Time fortino Allergy Severe Syncope Verified 09/05/22 10:50 bee venom protein (honey bee) Allergy Edema Verified 09/05/22 10:50 Anes History & Medical History - Anesthetic History Anesthesia Complications: reports: No previous complications - Medical History Cardiovascular: reports: Hypertension, Coronary artery disease, Peripheral Vascular Disease (s/p sfa angioplasty), Atrial fibrillation Pulmonary: reports: COPD, Shortness of breath Gastrointestinal: reports: Ulcers, Chronic constipation Urinary: reports: Other Neuro: reports: None Musculoskeletal: reports: Osteoarthritis, Fatigue, Chronic back pain Endocrine/Autoimmune: reports: None Blood Disorders: reports: None Skin: reports: None Smoking Status: Former smoker Psychosocial: reports: No issues indicated History of Cancer?: Yes - Surgical History General: reports: Other Eyes Ears Nose Throat (EENT): reports: Tonsil/Adenoidectomy Cardiothoracic: reports: Pacemaker, Angioplasty Urologic: reports: Nephrectomy Orthopedic: reports: Knee replacement Exam General: Alert, Oriented x3, Cooperative, No acute distress Dental: Dentures full Upper, Dentures full Lower Mouth Openin Fingerbreadth Neck Mobility: Normal Mallampati classification: IV Thyromental Distance: 4-6 cm Mental/Cognitive Status: Alert/Oriented X3, Normal for patient Plan Anesthesia Type: General, Total IV Consent for Procedure(s) Verified and Reviewed: Yes Code Status: Attempt Resuscitation ASA classification: 3-Severe systemic disease Is this case an emergency?: No
[2022-10-06] MEDS ORDERED: PROPOFOL 200 MG/20 ML VIAL IVP ONE (08:47)
[2022-10-06 09:31] VITALS: BP 138/81
--- NOTE | 2022-10-06 10:23 | ANESTHESIA POST OP EVALUATION ---
Anesthesia Post Eval - Post Anesthesia Eval Vitals: Last Vital Signs Temp 36.5 C 10/06/22 09:05 Pulse 60 10/06/22 09:30 Resp 14 10/06/22 09:30 BP 138/81 H 10/06/22 09:30 Pulse Ox 97 10/06/22 09:30 O2 Flow Rate CV Function Including HR & BP: Stable Pain Control: Satisfactory Nausea & Vomiting: Negative Mental Status: Baseline Respiratory Status: Airway Patent Hydration Status: Satisfactory Anesthesia Complications: None
== END 2022-10-06 07:20 | disposition home or self-care (01) ==
LOC: SDS 07:19
PROVIDERS: ATTEND Surgery
PROC: 0DB78ZX Excision of Stomach, Pylorus, Via Natural or Artificial Opening Endoscopic, Diagnostic (ICD-10-PCS; principal; 2022-10-06 08:30)
DX: Z08 Encounter for follow-up examination after completed treatment for malignant neoplasm (principal); K31.A15 Gastric intestinal metaplasia without dysplasia, involving multiple sites; Z85.028 Personal history of other malignant neoplasm of stomach; Z85.72 Personal history of non-Hodgkin lymphomas; J44.9 Chronic obstructive pulmonary disease, unspecified; E66.9 Obesity, unspecified; Z68.38 Body mass index [BMI] 38.0-38.9, adult; I25.10 Atherosclerotic heart disease of native coronary artery without angina pectoris; I48.91 Unspecified atrial fibrillation; Z87.891 Personal history of nicotine dependence; Z95.0 Presence of cardiac pacemaker
CPT/HCPCS: 43239; J7120

== ENCOUNTER 2022-10-24 14:28 | Outpatient (CLI) | payer MEDICARE, OTHER ==
[2022-10-24 15:01] LABS: BASOPHILS % (AUTO) 0.8 %; EOSINOPHILS # (AUTO) 0.2 10^3/uL (0.0-0.7); EOSINOPHILS % (AUTO) 2.9 %; HCT - HEMATOCRIT 42.6 % (42.0-52.0); HGB - HEMOGLOBIN 13.5 g/dL (14.0-18.0); LYMPHOCYTES # (AUTO) 1.2 10^3/uL (1.5-3.5); LYMPHOCYTES % (AUTO) 24.2 %; MEAN CORPUSCULAR HEMOGLOBIN 27.8 pg (27.0-31.0); MEAN CORPUSCULAR HGB CONC 31.7 g/dL (32.0-36.0); MEAN CORPUSCULAR VOLUME 87.7 fL (80.0-94.0); MEAN PLATELET VOLUME 8.7 fL (7.4-11.4); MONOCYTES # (AUTO) 0.5 10^3/uL (0.0-1.0); MONOCYTES % (AUTO) 9.8 %; NEUTROPHILS # (AUTO) 3.2 10^3/uL (1.5-6.6); NEUTROPHILS % (AUTO) 62.1 %; PLT - PLATELET COUNT 287 10^3/uL (130-450); RED BLOOD COUNT 4.86 10^6/uL (4.70-6.10); RED CELL DISTRIBUTION WIDTH 14.4 % (12.0-15.0); WHITE BLOOD COUNT 5.1 x10^3/uL (4.8-10.8)
[2022-10-24 15:25] LABS: ALBUMIN 3.7 g/dL (3.2-5.5); ALBUMIN/GLOBULIN RATIO 1.2 (1.0-2.2); ALKALINE PHOSPHATASE 71 IU/L (42-121); ALT ALANINE AMINOTRANSFERASE 34 IU/L (10-60); AST ASPARTATE AMINOTRANSFERASE 30 IU/L (10-42); BILIRUBIN,TOTAL 0.7 mg/dL (0.2-1.0); BUN - BLOOD UREA NITROGEN 13 mg/dL (6-20); CALCIUM 8.8 mg/dL (8.5-10.3); CARBON DIOXIDE - CO2 23 mmol/L (21-32); CHLORIDE 106 mmol/L (101-111); CHOL/HDL RATIO 3.3 (<5.0); CHOLESTEROL 132 mg/dL; CREATININE 1.1 mg/dL (0.6-1.2); GFR - MDRD 65 (>89); GLUCOSE 123 mg/dL (70-100); HDL CHOLESTEROL 40 mg/dL; LDL CHOLESTEROL,CALCULATED 73 mg/dL; LDL/HDL RATIO 1.8 (<3.6); POTASSIUM 4.2 mmol/L (3.5-5.0); SODIUM 140 mmol/L (135-145); TOTAL PROTEIN 6.9 g/dL (6.7-8.2); TRIGLYCERIDES 93 mg/dL; VLDL CHOLESTEROL 19 mg/dL
[2022-10-24 15:30] LABS: THYROID STIMULATING HORMONE 2.55 uIU/mL (0.34-5.60)
[2022-10-24 20:45] LABS: ESTIMATED AVERAGE GLUCOSE 183 mg/dL (70-100)
== END 2022-10-24 14:29 | disposition home or self-care (01) ==
LOC: LAB 14:28
PROVIDERS: ATTEND Physician Assistant Medical
DX: E78.5 Hyperlipidemia, unspecified (principal); R73.9 Hyperglycemia, unspecified; I10 Essential (primary) hypertension
CPT/HCPCS: 36415; 80053; 80061; 83036; 83721; 84443; 85025

== ENCOUNTER 2023-02-07 11:11 | Outpatient (CLI) | payer MEDICARE, OTHER ==
[2023-02-07 11:36] LABS: CALCIUM 9.3 mg/dL (8.5-10.3); CREATININE 1.2 mg/dL (0.6-1.3); POTASSIUM 4.5 mmol/L (3.5-4.5)
[2023-02-07 12:07] LABS: ESTIMATED AVERAGE GLUCOSE 140 mg/dL (70-100); HEMOGLOBIN A1c% 6.5 % (4.27-6.07)
== END 2023-02-07 11:12 | disposition home or self-care (01) ==
LOC: LAB 11:11
PROVIDERS: ATTEND Physician Assistant Medical
DX: E11.9 Type 2 diabetes mellitus without complications (principal)
CPT/HCPCS: 36415; 80048; 83036

== ENCOUNTER 2023-05-09 08:38 | Outpatient (CLI) | payer MEDICARE, OTHER ==
[2023-05-09 09:19] LABS: ALBUMIN/GLOBULIN RATIO 1.3 (1.0-2.2); ALKALINE PHOSPHATASE 73 IU/L (42-121); ALT ALANINE AMINOTRANSFERASE 42 IU/L (10-60); AST ASPARTATE AMINOTRANSFERASE 33 IU/L (10-42); BILIRUBIN,TOTAL 0.4 mg/dL (0.2-1.0); BUN - BLOOD UREA NITROGEN 24 mg/dL (6-20); CALCIUM 9.3 mg/dL (8.5-10.3); CARBON DIOXIDE - CO2 29 mmol/L (21-32); CHLORIDE 103 mmol/L (101-111); CHOL/HDL RATIO 2.8 (<5.0); CHOLESTEROL 108 mg/dL; CREATININE 1.1 mg/dL (0.6-1.3); GFR - MDRD 65 (>89); GLUCOSE 115 mg/dL (74-104); HDL CHOLESTEROL 39 mg/dL; LDL CHOLESTEROL,CALCULATED 49 mg/dL; LDL/HDL RATIO 1.3 (<3.6); POTASSIUM 4.6 mmol/L (3.5-4.5); SODIUM 138 mmol/L (135-145); TRIGLYCERIDES 101 mg/dL (48-352); VLDL CHOLESTEROL 20 mg/dL
[2023-05-09 10:14] LABS: ESTIMATED AVERAGE GLUCOSE 140 mg/dL (70-100); HEMOGLOBIN A1c% 6.5 % (4.27-6.07)
== END 2023-05-09 08:39 | disposition home or self-care (01) ==
LOC: LAB 08:38
PROVIDERS: ATTEND Physician Assistant Medical
DX: E11.9 Type 2 diabetes mellitus without complications (principal)
CPT/HCPCS: 36415; 80053; 80061; 83036; 83721

== ENCOUNTER 2023-11-13 13:36 | Outpatient (CLI) | payer MEDICARE, OTHER ==
--- NOTE | 2023-11-13 16:28 | XRAY Report ---
PROCEDURE: Chest 1V INDICATIONS: HX OF KIDNEY CANCER TECHNIQUE: One view of the chest was acquired. COMPARISON: Chest X-ray, 11/30/2018. Chest CT 08/29/2023. FINDINGS: Surgical changes and devices: There is a cardiac pacemaker in expected position. Lungs and pleura: No pleural effusions or pneumothorax. Lungs are clear. Mediastinum: Mediastinal contours appear normal. Heart size is normal. Bones and chest wall: No suspicious bony lesions. Overlying soft tissues appear unremarkable. IMPRESSION: No acute cardiopulmonary process. Reviewed by: Litzy Guidry MD on 11/13/2023 4:26 PM PDT Approved by: Litzy Guidry MD on 11/13/2023 4:26 PM PDT Station ID: [id number]
--- NOTE | 2023-11-13 21:26 | Ultrasound Report ---
PROCEDURE: Renal (Retroperitoneal) INDICATIONS: HIST OF KIDNEY CA TECHNIQUE: Real-time scanning was performed of the retroperitoneal organs, with image documentation. COMPARISON: None. FINDINGS: Kidneys: Kidneys are normal in size. Right kidney measures 10.2 cm long; left kidney measures 13.0 cm long. Right renal cortical thickness is 1.0 cm; left renal cortical thickness is 1.2 cm. No alexa d masses, hydronephrosis, or nephrolithiasis. Bladder: Pre-void bladder volume is 475 mL. Post-void residual is 34 mL. Pre-void images demonstra te no intraluminal masses or stones. On pre-void images, bilateral ureteral jets are noted with colo r Doppler interrogation. (Of note, ureteral jets may not be detectable in up to 25% of cases due to insufficient differences in specific gravity between ureteral and bladder urine). Miscellaneous: No free abdominal fluid. The visible portion of the prostate measures approximately 3.7 x 4.2 x 3.2 cm. IMPRESSION: No sonographic evidence of renal mass or obstructive uropathy. Small postvoid residual in the urinary bladder. Reviewed by: Daniela Aguayo MD on 11/13/2023 9:24 PM PDT Approved by: Daniela Aguayo MD on 11/13/2023 9:24 PM PDT Station ID: [id number]
== END 2023-11-13 13:37 | disposition home or self-care (01) ==
LOC: DI 13:36
PROVIDERS: ATTEND Physician Assistant Medical
DX: Z08 Encounter for follow-up examination after completed treatment for malignant neoplasm (principal); Z85.528 Personal history of other malignant neoplasm of kidney
CPT/HCPCS: 36415; 82565; 84520

== ENCOUNTER 2023-11-13 14:21 | Outpatient (CLI) | payer MEDICARE, OTHER | END 2023-11-13 14:22 | disposition home or self-care (01) | LOC: LAB 14:21 | PROVIDERS: ATTEND Physician Assistant Medical | DX: Z08 Encounter for follow-up examination after completed treatment for malignant neoplasm (principal); Z85.528 Personal history of other malignant neoplasm of kidney | CPT/HCPCS: 36415; 82565; 84520 ==

== ENCOUNTER 2023-12-12 12:38 | Outpatient (CLI) | payer MEDICARE, OTHER ==
[2023-12-12 13:07] LABS: CALCIUM 9.6 mg/dL (8.5-10.3); CREATININE 1.1 mg/dL (0.6-1.3); POTASSIUM 4.1 mmol/L (3.5-4.5)
[2023-12-12 20:40] LABS: ESTIMATED AVERAGE GLUCOSE 154 mg/dL (70-100)
== END 2023-12-12 12:39 | disposition home or self-care (01) ==
LOC: LAB 12:38
PROVIDERS: ATTEND Physician Assistant Medical
DX: E11.9 Type 2 diabetes mellitus without complications (principal)
CPT/HCPCS: 36415; 80048; 83036